=== PATIENT | female | born 1970 | race Caucasian/White ===

== ENCOUNTER → 2017-08-13 11:04 | Outpatient (CLI) | payer OTHER, SELFPAY ==
--- NOTE | 2017-08-13 | VUL_PTH ---
PATIENT: DANY PETERSON LOC: [facility] U#:[id number] AGE/SX: 54/F ROOM: RE08/13/[address]: Dr. Martha Finch MD : 1970 BED: DIS: SPEC #: [id number] RECD: 08/13/17 13:17 STATUS: KARLI IVONNE #: [id number] ANNA MARIE: 08/13/17 00:[address]: Martha Finch DEPT: SURGICAL PATHOLOGY RECD BY: Rocky Baumann ENTERED: 08/15/17 13:17 SP TYPE: VULVA BX OTHR DR: No Primary Care Phys Tissues: Vulva, NOS Procedures: Surgery Specimen Level IV HEADER OPERATION: Right labia biopsy PRE-OP DIAGNOSIS: TISSUE SUBMITTED: Labia MICROSCOPIC DIAGNOSIS Right labia, biopsy: Consistent with focal HPV change. AM:dru 08/18/17 COMMENT Results from immunohistochemistry ([id number]) for surrogate HPV marker (p16) will be reported separately. Case has been reviewed in consultation with Dr. Hernandez who concurs with the above diagnosis. IDC:SJ MICROSCOPIC DESCRIPTION Slides are reviewed. GROSS DESCRIPTION Received is one container labeled with the patient's name and not further designated. The specimen consists of one irregular fragment of light bunch soft tissue that measures 0.2 x 0.2 x 0.1 cm. The specimen is totally submitted in one cassette. / AM:dru 08/14/17 TC:5 CPT: 28559
--- NOTE | 2017-08-13 | IMM_PTH ---
PATIENT: DANY PETERSON LOC: [facility] U#:[id number] AGE/SX: 54/F ROOM: RE08/13/[address]: Dr. Martha Finch MD : 1970 BED: DIS: SPEC #: [id number] RECD: 08/18/17 09:46 STATUS: KARLI REQ #: [id number] ANNA MARIE: 08/13/17 00:[address]: Martha Finch DEPT: IMMUNOHISTOCHEMISTRY RECD BY: Bhakti Enriquez ENTERED: 08/18/17 09:47 SP TYPE: IMMUNO OTHR DR: No Primary Care Phys Tissues: Labium, NOS Procedures: p16 (initial) KI-67 (add) PHYSICIAN & INSTITUTION [place] [id number] SPECIMEN INFORMATION: Tissue Source: Labia Clinical Info: Specimen Number: [id number] CPT code: 10940, 12425 METHODOLOGY: Deparaffinized sections of prefer/formalin-fixed tissue or PAP/DQ stained slides are incubated with monoclonal/polyclonal antibodies/oligonucleotide probes. Localization is made via biotin free immunoperoxidase method. Appropriate controls are performed and reacted as expected. Results on target cell population are indicated in the following table: RESULTS: ANTIBODY / CLONE RESULT P16 (E6H4) positive, rare Ki-67 (30-9) positive, low These tests were developed and their performance characteristics determined by [facility]. They may not have been cleared or approved by the U.S. Food and Drug Administration. The FDA has determined that such clearance or approval is not necessary. INTERPRETATION: Labia biopsy: Focal HPV change suspected. AM:dru 08/18/17
== END ==
LOC: LABSPEC 08-15 11:04
PROVIDERS: Visit Provider Obstetrics & Gynecology
DX: N90.89 Other specified noninflammatory disorders of vulva and perineum (principal)
CPT/HCPCS: 88305; 88341; 88342

== ENCOUNTER 2017-09-25 06:40 | Day surgery (SDC) | payer OTHER, SELFPAY ==
[2017-09-25] VITALS (8 sets, daily range): BP systolic 102–127; BP diastolic 60–76; PULSE 73–98; RESP 16–18; TEMP 36.1–36.3; O2SAT 96–99; BMI 27.8
--- NOTE | 2017-09-25 06:02 | HP.PCM_ITS ---
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: No Is patient in pain?: Yes Allergies coconut oil Allergy (Verified 08/13/17 10:01) Rash venom-honey bee Allergy (Verified 08/13/17 10:01) Unknown Medications amoxicillin 875 mg-potassium clavulanate 125 mg tablet 1 tab PO BID #28 tab 01/14 [Rx Confirmed 08/13/17] ascorbic acid (vitamin C) 500 mg capsule mg PO 08/06/17 [History Confirmed 08/13] bupropion HCl 75 mg tablet 75 mg PO TID 08/06/17 [History Confirmed 08/13/17] Is last menstrual period known: No Post menopausal: No Patient : No : No PFSH Medical History Asthma (Acute) Diabetes (Acute) Diarrhea (Acute) Difficulty balancing (Acute) Fatigue (Acute) Fever (Acute) Lupus (Acute) Migraines (Acute) SOB (shortness of breath) (Acute) Surgical History H/O: hysterectomy (Acute) History of appendectomy (Acute) History of lumpectomy (Acute) Hx of cholecystectomy (Acute) Hx of tonsillectomy (Acute) Family History Aunt Breast cancer Cancer vulvar cancer Grandmother Cancer vulvar Other Heart disease Social History Smoking Status: Current every day smoker alcohol intake: current details: social substance use type: does not use caffeine: Yes what type of physical activity do you participate in: none seatbelt use: always do you feel safe at home: Yes 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 she has a family history of vulvar cancer and breast cancer and is anxious about this. she has a history of mildly abnormal paps but no severe, and she has had a total hysterectomy and bso in the past. she has had recurrent dysplasia and wants to proceed with therapy due to persistent abnormalities. Pregancy History 4 Elective abortions Hx Para 2 Spontaneous abortions Hx # Term Pregnancies Ectopic pregnancies Hx # Pregnancies Multiple births # of living children Past Pregnancies Del. Date Name GA/Weeks Outcome Route Bth Weight Gen Labor Lgth Anesthesia Del Locatn Provider FOB Unknown 1993 Mai Unknown 1995 Gregory ROS Const Constitutional: Reports system reviewed and no additional complaints, except as docu GI GI: Denies abdominal pain, nausea, vomiting or cramping : Denies urinary frequency, vaginal dryness, vaginal discharge, urinary urgency, urinary incontinence, vaginal odor or pelvic pain Exam Const General: cooperative, healthy appearing, comfortable, no acute distress External Female Exam: normal external appearance, normal appearance of the urethra Urethra: normal appearance of the urethra Speculum Exam - Vagina: normal appearance of the vagina, other (normal vaginal length, apex well supprted and healed, intact no granulation) Speculum Exam - Cervix: cervix absent Bimanual Exam- Vagina & Uterus: uterus absent Bimanual Exam- Adnexa, other: adnexae non-tender, pelvic support normal Pelvic Support: normal Other: vaginal cuff normal and intact, good vaginal length, no granulation tissue present dilute acetic acid solution applied to bilateral vulva and serveral areas noted clitoral and on perineal body of acetowhite lesions- biopsy done of right perineal body. Office Procedures Vulva Biopsy Time Out: Consent Signed: Yes Time out checklist: patient, procedure, site marked/identified, positioning of patient, supplies available, allergies confirmed, team agrees on procedure Time out time: 10:46 Procedure Note: Biopsies (vulva): perineal body Plan: Plan: Sign in Communication: Completed Sign out Communication: Completed Gross Lesions: see PE Biopsy: Area was cleansed with betadine and anesthetized with 1mL of 1: lidocaine with epinephrine. 3mm Wing punch used to biopsy region. Hemostasis: Obtained with silver nitrate. Procedure Summary: patient tolerated the procedure well without complication. Assessment & Plan Problems 1. NIKKIE I (vulvar intraepithelial neoplasia I) N90.0 follow recommend vulvar colposcopy january 2018 2. Vulvar lesion N90.89 Plan patient wishes to proceed with ablation therapy versus expectant management. recommend laser ablation due to widespread involvement. discussed risks of bleeding, infection, scarring. 09/25/17 I have seen the patient and made any clinically relevant updates to the h and p. Martha Finch
[2017-09-25 07:12] LABS: Hematocrit 38.1 % (37-47); Hemoglobin 13.4 g/dl (12.0-15.0); Mean Corp Hgb Conc 35.2 g/gl (32-36); Mean Corpuscular Hgb 32.1 pg (27.0-32.0); Mean Corpuscular Volume 91.1 fL (81-99); Mean Platelet Vol. 10.9 fl (6.2-12.0); Platelet Count 253 K/mm3 (150-450); RBC Distribution Width SD 39.2 fl (35.1-43.9); Red Blood Count 4.18 M/mm3 (4.2-5.4); White Blood Count 8.1 K/mm3 (4.4-11.0)
[2017-09-25 07:14] LABS: Scan Indicated on CBC? Y/N NO
[2017-09-25 07:21] LABS: Bedside Glucose 172 mg/dL (70-110)
--- NOTE | 2017-09-25 08:14 | PCM.OPRPT ---
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 Acetic acid was applied to the vulva and abnormal areas were outlined and a map made of the areas that need to be treated. No additional biopsies were necessary. Patient was prepped and draped in normal sterile fashion with moist towels draped around the operative area the laser was set on 5 W continuous and progressive destruction of 1 mm depth for non-hairbearing and 3 mm in depth for hairbearing areas was performed on bilateral labia starting on the clitoris down to the level of the perineal body. The introitus was also treated with the CO2 laser to destroy the lesions. Silvadene cream was applied all to the area and patient was awoken and taken recovery in stable condition. Marcaine was injected prior to the laser ablation. Grafts/Implants Used: none - Complications none - Admit VTE Documentation VTE Present on Admission: No VTE Mechan Device Prophylaxis: SCD's
--- NOTE | 2017-09-25 08:16 | PCM.DC ---
You will use the following diet at home:: Regular Discharge Activity: Return to Normal Activity Return to work on:: 10/08/17 May resume sexual activity in: 6 weeks Ice area for (Minutes): 15 - prn Additional Activity Instructions:: sitz baths PRN use over the counter, apply silvadene cream as needed Call your doctor if your incision/area has: Increased Pain/ Swelling, Foul Smelling Discharge Call your doctor if you observe: Fever of 101 or Higher, Shortness of breath, Dizziness Cleanse incision/area with: Soap & Water Allergies/Adverse Reactions: Allergies coconut oil Allergy (Verified 09/18/17 10:38) Rash venom-honey bee Allergy (Verified 09/18/17 10:38) Unknown Medications to take at Discharge ascorbic acid (vitamin C) 500 mg capsule 500 mg PO DAILY 08/06/17 bupropion HCl 75 mg tablet 75 mg PO TID 08/06/17 Primary Care Physician: Care Physician,No Primary [Primary Care Provider] - Please Follow Up With: Martha Finch MD - [phone] When: 2-3 weeks
[2017-09-25] MEDS: Bupiv/Epi 0.5% Mpf 30 ML Vial (08:51)
[2017-09-25] MEDS: Silver Sulfadiazine 1% Crm 50 gm Bottle 50 APPLIC TOPICAL (09:14)
== END 2017-09-25 11:28 | disposition home or self-care (01) ==
LOC: SDC 06:42 → AC 06:42
PROVIDERS: Anesthesiology; Visit Provider Obstetrics & Gynecology
PROC: (CPT 56515; principal; 2017-09-25 08:10)
DX: N90.0 Mild vulvar dysplasia (principal); F17.200 Nicotine dependence, unspecified, uncomplicated; Z80.49 Family history of malignant neoplasm of other genital organs; Z80.3 Family history of malignant neoplasm of breast; F41.9 Anxiety disorder, unspecified; F32.9 Major depressive disorder, single episode, unspecified; E11.9 Type 2 diabetes mellitus without complications; Z79.899 Other long term (current) drug therapy
CPT/HCPCS: 56515; 36415; 82962; 85027; 86850; 86900; J7120; J2405

== ENCOUNTER 2022-01-18 19:06 | Emergency (ER) | payer MEDICARE, SELFPAY ==
[2022-01-18 19:07] VITALS: BP 147/114; PULSE 114; RESP 16; TEMP 36.4; O2SAT 97; BMI 24.6
--- NOTE | 2022-01-18 19:51 | EKG12_ITS ---
Test Reason : CP Blood Pressure : / mmHG Vent. Rate : 098 BPM Atrial Rate : 098 BPM P-R Int : 144 ms QRS Dur : 074 ms QT Int : 538 ms P-R-T Axes : 020 -10 035 degrees QTc Int : 686 ms Normal sinus rhythm Nonspecific ST abnormality Prolonged QT Abnormal ECG Confirmed by CELI FOFANA, RASHMI ([id number]), story editor CASSANDRA DRUMMOND ([id number]) on 01/22/2022 9:21:56 AM Referred By: BB Confirmed By:RASHMI ALATORRE MD
[2022-01-18 20:05] LABS: Absolute Lymphocyte Count 2.05 X10^3/uL (0.83-4.51); Absolute Neutrophil Count 4.1 X10^3/uL (2.0-7.7); Basophil# 0.07 X10^3/uL; Eosinophil# 0.22 X10^3/uL; Eosinophils% 3.1 % (0-5); Hematocrit 41.7 % (37-47); Hemoglobin 14.3 g/dL (12.0-15.0); Lymphocyte # 2.05 X10^3/ul (0.83-4.51); Lymphocyte % 29.2 % (19-41); Mean Corp Hgb Conc 34.3 g/dL (32-36); Mean Corpuscular Hgb 28.9 pg (27.0-32.0); Mean Corpuscular Volume 84.4 fL (81-99); Monocyte# 0.56 X10^3/uL; NRBC Flagged by Analyzer 0 % (0-5); Neutrophil # 4.08 X10^3/uL (2.7-7.7); Neutrophil % 58.3 % (47-70); Platelet Count 237 K/mm3 (150-450); RBC Distribution Width CV 13.8 % (11.6-14.6); RBC Distribution Width SD 42.2 fl (35.1-43.9); Red Blood Count 4.94 M/mm3 (4.2-5.4)
[2022-01-18] MEDS: Aspirin 81 MG TAB.CHEW 324 MG PO (20:05)
--- NOTE | 2022-01-18 20:12 | RAD_ITS ---
STUDY: X-RAY CHEST REASON FOR EXAM: Female, 51 years old. chest pain TECHNIQUE: AP portable COMPARISON: None. FINDINGS: Mild discoid atelectasis in the left lower lobe. Minor interstitial scarring at the right base There is no demonstrated pleural abnormality. Normal size heart. Normal mediastinum and ruth ann. Normal visualized pulmonary arteries. Normal visualized aortic arch and descending thoracic aorta. Dorsal spine demonstrates degenerative change. Normal visualized ribs, clavicles, and shoulders. There is no demonstrated abnormality of the visualized soft tissue structures of the upper abdomen. RAD/Chest 1 View (Portable) IMPRESSION: Mild discoid atelectasis in left lower lobe. Electronically Signed: Moshe Theodore MD at 20:39 EDT ,
[2022-01-18 20:24] LABS: Anion Gap 6 (5-15); BUN 7 mg/dL (7-18); BUN/Creat Ratio 10.3 RATIO (10-20); Calcium,Total 8.8 mg/dL (8.5-10.1); Chloride 108 mmol/L (98-107); Creatinine, Serum 0.68 mg/dL (0.55-1.02); EST Glomerular Filtration Rate 98 mL/min (>60); Est Glom Filt Rate - Afr Amer 118 mL/min (>60); Estimated Creatinine Clearance 99.84 ml/min; Glucose 235 mg/dL (74-106); Potassium 3.6 mmol/L (3.5-5.1); Sodium Level 137 mmol/L (136-145); Troponin-I HS 13 pg/mL (3.0-54.0)
[2022-01-18] MEDS: 0.9% Normal Saline 1,000 ML 999 ML IV (20:26)
[2022-01-18] MEDS: Ketorolac 15 MG/ML Vial IV (20:26)
[2022-01-18 21:26] LABS: D-Dimer Quantitative (DVT/PE) < 0.27 FEU/ug/m (0.27-0.49)
--- NOTE | 2022-01-18 21:52 | ED.VIS.CHEST ---
HPI History of Present Illness Chief Complaint: Chest Pain Informant: patient Narrative Narrative: Patient is a 51-year-old female with history of anxiety, Diabetes mellitus, asthma, discoid lupus and anxiety presenting with left-sided chest pain. Patient states she is had this pain for about 3 months but is been worse over the past 4 days. She states it is constant dull and aching but then she gets sharp episodes of pain of Benemid at time. It is worse with deep breathing or movement. She also feels that all of her glands are swollen. She denies any associated shortness of breath or dyspnea on exertion. She notes she has an appointment to see a new primary care doctor on February 01 but she did not think she could wait that long given the worsening of her symptoms. Patient denies any swelling of her legs. She states she has been having night sweats for the past 5 days. She notes that she has had a hysterectomy with oophorectomy about 30 years ago so does not think that her symptoms are hormonal. She does feel that she is had about a 10 pound weight loss that is been unintentional since October. Denies any history of DVT or PE. No other complaints at this time. [facility] Medical History (Updated 01/18/22 @ 22:[address] Ivonne Kyle, DO) Asthma Diabetes Diarrhea Difficulty balancing Fatigue Fever Lupus Migraines SOB (shortness of breath) Home Medications aripiprazole 5 mg oral tablet with sensor, strip, and pod 5 mg PO DAILY 01/18/22 [History Last Taken Unknown] bupropion HCl 150 mg tablet,12 hr sustained-release (Wellbutrin SR) 150 mg PO DAILY 01/18/22 [History Last Taken Unknown] insulin aspar prot-insulin aspart 100 unit/mL (70-30) subcutaneous pen (Novolog Mix 70-30FlexPen U-100) 15 unit subcut TID 01/18/22 [History Last Taken Unknown] lamotrigine 200 mg tablet (Lamictal) 200 mg PO DAILY 01/18/22 [History Last Taken Unknown] pregabalin 50 mg capsule (Lyrica) 50 mg PO TID 01/18/22 [History Last Taken Unknown] quetiapine 50 mg tablet (Seroquel) 50 mg PO QHS 01/18/22 [History Last Taken Unknown] trazodone 100 mg tablet 200 mg PO DAILY 01/18/22 [History Last Taken Unknown] Allergy/AdvReac Type Severity Reaction Status Date / Time coconut oil Allergy Rash Verified 01/18/22 19:10 venom-honey bee Allergy Unknown Verified 01/18/22 19:10 Family History Aunt Breast cancer Cancer vulvar cancer Grandmother Cancer vulvar Other Heart disease Surgical History H/O: hysterectomy History of appendectomy History of lumpectomy Hx of cholecystectomy Hx of tonsillectomy Social History Smoking Status: Current every day smoker tobacco type: cigarettes alcohol intake: current details: social substance use type: does not use caffeine: Yes what type of physical activity do you participate in: none seatbelt use: always do you feel safe at home: Yes 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 [employer] ED Constitutional Constitutional ED: Reports chills and sweats; Denies fever(s) Eyes Eyes: Denies blurry vision ENT ENT ED: Denies rhinorrhea or sore throat Cardiovascular Cardiovascular: Reports as per HPI and chest pain; Denies palpitations Respiratory/Chest Respiratory/Chest: Denies cough, dyspnea or dyspnea on exertion Gastrointestinal Gastrointestinal: Denies abdominal pain, nausea or vomiting Genitourinary Genitourinary ED: Denies dysuria Musculoskeletal Musculoskeletal: Denies arthralgias or myalgias Integumentary Denies rash Neurologic Neurologic: Denies headache(s) or weakness Psychiatric Psychiatric: Reports anxiety EXAM Physical Exam Const Vital Signs: 01/18/22 19:07 01/18/22 19:58 Temperature 97.5 F L Temperature Source Temporal Pulse Rate 114 H Respiratory Rate 16 Blood Pressure 147/114 H Blood Pressure Mean 125 Pulse Ox 97 Oxygen Delivery Method Room Air Room Air Positive well nourished and well developed General Appearance ED: well developed and NAD HEENT Reports dry mucous membranes normocephalic and atraumatic Mouth ED: Yes dry mucous membranes Mouth: dry mucous membranes Eyes PERRL and EOMs intact bilaterally Neck no lymphadenopathy and supple Chest Wall inspection of chest normal Chest Narrative: Left-sided chest wall tenderness around approximately rib 7-9 most pronounced in the mid axillary line Resp normal respiratory effort and clear to auscultation bilaterally Effort and Inspection: Negative for respiratory distress Cardio regular rhythm Rate: tachycardic Peripheral Pulses: pulses 2+ throughout GI normal to inspection, nondistended, normoactive bowel sounds and non-tender Back/Spine no CVA tenderness Back/Spine Narrative: Left thoracic paraspinal tenderness to palpation Extremity normal to inspection General Extremety ED: Negative for edema or pulses abnormal General Extremity: Negative for edema or pulses abnormal Neuro oriented x3 Motor Exam: strength 5/5 throughout; Negative for general weakness Psych mental status grossly normal Mood & Affect: anxious and tearful Skin no rashes or lesions noted and no wounds Heart Score History: Slightly/Non-Suspicious ECG: Normal Age: >45 - <65 years Risk Factors: 1 or 2 Risk Factors Troponin: </= Normal Limit Score: 2 MDM MDM MDM Narrative Medical decision making narrative: Patient evaluated for worsening left-sided rib pain. Patient appears anxious and is tachycardic but is in no acute distress. Pain is highly reproducible with palpation. I do not see any overlying rash consistent with shingles. Patient is given IV Toradol and IV fluids in the emergency room with improvement of her symptoms. CBC is normal. D-dimer is negative. Her only risk factor for PE really is her tachycardia and I do not think a CT is indicated. High since her troponin is 13. Given her pain is been going on for 3 months I feel like this rules out ACS. EKG does not show any acute ischemic changes. BMP is unremarkable. Chest x-ray Interpreted by myself as well as radiology does not show any acute process. While the cause of her pain is not clear I feel that is more muscle skeletal nature. I think that she is stable for outpatient follow-up and I do not think there is any acute emergent process that requires further admission in the hospital. Given that is been going on for 3 months I do not think opioid medications without acute verifiable cause of the pain is indicated at this time. Lab Data Attestation: I reviewed the patient's lab results. Labs: Laboratory Results - last 24 hr 01/18/22 01/18/22 01/18/22 19:49 19:49 19:49 WBC 7.0 RBC 4.94 Hgb 14.3 Hct 41.7 MCV 84.4 MCH 28.9 MCHC 34.3 RDW Std Deviation 42.2 RDW Coeff of Marc 13.8 Plt Count 237 MPV 11.0 Immature Gran % (Auto) 0.400 Neut % (Auto) 58.3 Lymph % (Auto) 29.2 [place] % (Auto) 8.0 Eos % (Auto) 3.1 Baso % (Auto) 1.0 Absolute Neuts (auto) 4.1 Absolute Lymphs (auto) 2.05 Nucleated RBC % 0 D-Dimer Quant (PE/DVT) < 0.27 L Sodium 137 Potassium 3.6 Chloride 108 H Carbon Dioxide 23.0 Anion Gap 6 BUN 7 Creatinine 0.68 Estim Creat Clear Calc 99.84 Est GFR (MDRD) Af Amer 118 Est GFR (MDRD) Non-Af 98 BUN/Creatinine Ratio 10.3 Glucose 235 H Calcium 8.8 Troponin I High Sens 13 Radiography Chest X-Ray - ED: 1 View, Read by ED Physician, Read by Radiologist and No Acute Disease Diagnostic Testing: Clinical Impression(s) from Imaging Studies Chest X-Ray 01/18/22 20:12 IMPRESSION: Mild discoid atelectasis in left lower lobe. Electronically Signed: Moshe Theodore MD at 20:39 EDT , Rhythm Strip Rhythm Strip: Sinus Rhythm Rate: 98 Ectopy: None EKG Initial EKG: Attestation: I personally reviewed and interpreted this EKG as follows: Interpretation: Sinus Rhythm Comments: Normal sinus rhythm at a rate of 98 Left axis deviation Normal MN and QRS Normal QTC by my interpretation Normal ST segments Discharge Plan Triage Chief Complaint: Chest Pain ED Provider: Ivonne Kyle Dx/Rx/DC Orders Clinical Impression: Chest wall pain Instructions: ED Chest Pain, Uncertain Cause Prescriptions: No Action bupropion HCl [Wellbutrin SR] 150 mg Tablet Sustained-Release 12 Hr 150 mg PO DAILY lamotrigine [Lamictal] 200 mg Tablet 200 mg PO DAILY trazodone 100 mg Tablet 200 mg PO DAILY pregabalin [Lyrica] 50 mg Capsule 50 mg PO TID quetiapine [Seroquel] 50 mg Tablet 50 mg PO QHS aripiprazole 5 mg Tablet With Sensor, Strip, Pod 5 mg PO DAILY Rx Instructions: use patch with sensor applied weekly (or more frequently, as directed) insulin asp prt-insulin aspart [Novolog Mix 70-30FlexPen U-100] 100 unit/mL (70-30) Insulin Pen 15 unit SUBCUT TID Primary Care Provider: Eusebia Davis GRILL ATTENDANT Referrals: Eusebia Davis GRILL ATTENDANT, GRILL ATTENDANT-C [Primary Care Provider] - Disposition Disposition: Home, Self Care
== END 2022-01-18 22:36 | disposition home or self-care (01) ==
PROVIDERS: Emergency Provider Emergency Medicine; PCP Nurse Practitioner; Visit Provider Emergency Medicine
DX: R07.89 Other chest pain (principal); E11.9 Type 2 diabetes mellitus without complications; Z79.4 Long term (current) use of insulin; F41.9 Anxiety disorder, unspecified; F17.210 Nicotine dependence, cigarettes, uncomplicated; Z79.899 Other long term (current) drug therapy
CPT/HCPCS: 71045; 80048; 84484; 85025; 85379; 93005; 96361; 96374; 99283; J7030

== ENCOUNTER 2023-03-05 21:47 | Inpatient (IN) | payer MEDICARE, SELFPAY ==
[2023-03-05] VITALS (11 sets, daily range): BP systolic 130–162; BP diastolic 79–90; PULSE 98–105; RESP 16–24; TEMP 36.4–37.5; O2SAT 24–99; BMI 26.7; BMI 26.8
--- NOTE | 2023-03-05 21:50 | CT_ITS ---
INDICATION: Neuro deficit, acute, stroke suspected EXAMINATION: CT BRAIN - CT Head Stroke Protocol W/O Contrast Injection TECHNIQUE: Multiple axial images were obtained of the head without intravenous contrast. A radiation dose optimization technique was used for this scan. IV Contrast dosage and agent: None. COMPARISON: No relevant prior comparison study available FINDINGS: BRAIN PARENCHYMA: No intra- or extra-axial hemorrhage. No evidence of acute infarct. No intracranial mass or mass effect. There is preservation of the duron/white matter interface. Posterior fossa structures are unremarkable. CSF SPACES: Appropriate for age. No hydrocephalus. Basal cisterns are patent. CALVARIUM, SKULL BASE, PARANASAL SINUSES AND MASTOID AIR CELLS: Clear. No discrete lytic or blastic abnormalities. ORBITS: Both globes, extraocular muscles, optic nerves and retrobulbar fat appear unremarkable. ASPECTS Score for Acute Strokes: 10 CT/STROKE Brain/Head without Cont IMPRESSION: Negative Brain CT without contrast. N.B. : The above Results were Read Back by Bandar Courtney MD to Edy Baldwin DO, and understanding confirmed on 03/05/2023 22:08:48 (ET). Electronically Signed: Bandar Courtney MD at 22:09 EDT ,
--- NOTE | 2023-03-05 21:50 | EKG12_ITS ---
Test Reason : STROKE Blood Pressure : / mmHG Vent. Rate : 099 BPM Atrial Rate : 099 BPM P-R Int : 152 ms QRS Dur : 080 ms QT Int : 358 ms P-R-T Axes : 028 -20 029 degrees QTc Int : 459 ms Normal sinus rhythm Inferior infarct , age undetermined Abnormal ECG Confirmed by CELI FOFANA, RASHMI ([id number]), health editor CEZAR MCCOY ([id number]) on 03/07/2023 1:54:11 PM Referred By: Confirmed By:RASHMI ALATORRE MD
--- NOTE | 2023-03-05 21:50 | CT_ITS ---
We are attempting to reach an attending provider to discuss findings. An addendum with communication details will be sent when the communication is complete. STUDY: CTA HEAD AND NECK WITH CONTRAST REASON FOR EXAM: Female, 52 years old. Neuro deficit, acute, stroke suspected RADIATION DOSAGE (If Supplied By Facility): CTDIvol = ( 15.57 ) mGy, DLP = ( 752.79 ) mGycm TECHNIQUE: CT angiography was performed with a multi-detector CT scanner. Data acquisition was obtained from the skull base through the vertex following intravenous administration of IV 100mL Isovue-370. MIP images were reconstructed from the axial data set. Post-processing of the angiographic images was performed, with multiplanar reformation and 3D reconstruction. Individualized dose optimization techniques were used for this CT. COMPARISON: No relevant priors. FINDINGS: Normal bilateral petrous carotid arteries. Normal right cavernous carotid artery with a normal supraclinoid bifurcation. Normal left cavernous carotid artery with a normal supraclinoid bifurcation. Normal right A1 segments of the anterior cerebral artery. Normal left A1 segments of the anterior cerebral artery. Normal intact anterior communicating artery (ACOM). Normal bilateral A2 segments of the anterior cerebral arteries. Normal right M1 and M2 segments of the middle cerebral arteries, with a normal M1 bifurcation. Normal left M1 and M2 segments of the middle cerebral arteries, with a normal M1 bifurcation. Normal right posterior communicating artery (PCOM). Normal left posterior communicating artery (PCOM). Normal bilateral vertebral arteries. Normal basilar artery with a normal basilar bifurcation. The visualized bilateral superior cerebellar (SCA) arteries are normal. Normal bilateral P1, P2 and visualized P3 segments of the posterior cerebral arteries. There is no demonstrated aneurysm of the [place]. There is no demonstrated abnormality of the visualized brain. AORTIC ARCH: Normal visualized aortic arch. Normal origins of the brachiocephalic, left common carotid, and left subclavian arteries. RIGHT CAROTID ARTERIES: Normal right common carotid artery (CCA). Normal right common carotid bulb. Normal origin of the right internal carotid (ICA) artery without a hemodynamically significant stenosis. Normal visualized cervical portion of the right internal carotid artery. Normal origin of the right external carotid artery (ECA). LEFT CAROTID ARTERIES: Normal left common carotid artery (CCA). Normal left common carotid bulb. Normal origin of the left internal carotid (ICA) artery without a hemodynamically significant stenosis. Normal visualized cervical portion of the left internal carotid artery. Normal origin of the left external carotid artery (ECA). VERTEBRAL ARTERIES: Normal bilateral vertebral arteries. CT/STROKE CTA Head AND Neck W/Con IMPRESSION: Normal CTA Head and neck with contrast. Electronically Signed: Bandar Courtney MD at 22:26 EDT ,
--- NOTE | 2023-03-05 21:50 | ED.RN ---
phone call to [facility]
--- NOTE | 2023-03-05 21:53 | ED.VIS.STROK ---
HPI History of Present Illness Chief Complaint: Stroke Alert Informant: patient Onset/Context/Timing Onset: Today Context: Sudden Onset Timing: Continuous Quality and Location: Positive for Right Arm Parasthesia, Right Leg Parasthesia, Right Arm Weakness and Right Leg Weakness Onset: 2044 Worsened by: Nothing Relieved by: Nothing Associated Symptoms Associated Symptoms: Negative for Headache, Nausea, Vomiting or Chest Pain Narrative Narrative: Patient presents with stroke symptoms that began approximately 1 hour prior to arrival. Patient admits to some tingling and weakness in her right arm and right leg. Patient admits to some decrease in the right side of her vision. Patient denies any difficulty swallowing or difficulty with her speech. PFSH PFSH Medical History Anxiety and depression Asthma IDDM (insulin dependent diabetes mellitus) Lupus Migraines Tobacco use Home Medications insulin aspar prot-insulin aspart 100 unit/mL (70-30) subcutaneous pen (Novolog Mix 70-30FlexPen U-100) 20 unit subcut TID 01/18/22 [History Last Taken Unknown] lamotrigine 200 mg tablet (Lamictal) 400 mg PO DAILY 01/18/22 [History Last Taken Unknown] pregabalin 50 mg capsule (Lyrica) 50 mg PO TID 01/18/22 [History Last Taken Unknown] quetiapine 50 mg tablet (Seroquel) 50 mg PO QHS 01/18/22 [History Last Taken Unknown] amitriptyline 25 mg tablet 25 - 50 mg PO QHS 03/05/23 [History Last Taken Unknown] prazosin 1 mg capsule 1 mg PO QHS 03/05/23 [History Last Taken Unknown] propranolol 20 mg tablet 20 mg PO QHS 03/05/23 [History Last Taken Unknown] Allergy/AdvReac Type Severity Reaction Status Date / Time coconut oil Allergy Rash Verified 03/05/23 22:06 venom-honey bee Allergy Unknown Verified 03/05/23 22:06 Family History Aunt Breast cancer Cancer vulvar cancer Grandmother Cancer vulvar Other Heart disease Surgical History H/O: hysterectomy History of appendectomy History of lumpectomy Hx of cholecystectomy Hx of tonsillectomy Social History Smoking Status: Current every day smoker tobacco type: cigarettes alcohol intake: current details: social substance use type: does not use caffeine: Yes what type of physical activity do you participate in: none seatbelt use: always do you feel safe at home: Yes 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 [facility] ROS ROS ED Constitutional Constitutional ED: Denies chills or fever(s) Eyes Eyes: Denies blurry vision or change in vision ENT ENT ED: Denies rhinorrhea or sore throat Cardiovascular Cardiovascular: Denies chest pain or palpitations Respiratory/Chest Respiratory/Chest: Denies cough or dyspnea Gastrointestinal Gastrointestinal: Denies nausea or vomiting Genitourinary Genitourinary ED: Denies dysuria or hematuria Musculoskeletal Musculoskeletal: Denies back pain or neck pain Integumentary Denies abscess or rash Neurologic Neurologic: Reports paresthesias and weakness; Denies headache(s) Allergic/Immunologic Allergic/Immunologic ED: Denies mouth swelling or urticaria EXAM Physical Exam Const Vital Signs: 03/05/23 22:05 03/05/23 22:05 03/05/23 22:06 Temperature 98.2 F Temperature Source Temporal Pulse Rate 101 H Respiratory Rate 18 Blood Pressure 155/81 H Blood Pressure Mean 105 Blood Pressure Source Blood Pressure Position Blood Pressure Location Pulse Ox 99 98 Oxygen Delivery Method Room Air Room Air 03/05/23 22:06 03/05/23 22:13 03/05/23 22:15 Temperature 98.2 F Temperature Source Temporal Pulse Rate 104 H 105 H Respiratory Rate 24 H 22 H Blood Pressure 155/81 H 162/88 H Blood Pressure Mean 105 112 Blood Pressure Source Blood Pressure Position Blood Pressure Location Pulse Ox 95 24 Oxygen Delivery Method Room Air Room Air Room Air 03/05/23 22:30 03/05/23 22:30 03/05/23 22:45 Temperature 99 F Temperature Source Core Pulse Rate 103 H 103 H Respiratory Rate 16 16 Blood Pressure 130/79 H 130/79 H 147/79 H Blood Pressure Mean 96 101 Blood Pressure Source Monitor Blood Pressure Position Supine Blood Pressure Location Right Arm Pulse Ox 95 95 Oxygen Delivery Method Room Air Room Air Positive well nourished and well developed General Appearance ED: well developed and NAD HEENT Reports moist mucous membranes Neck supple and no JVD Resp normal respiratory effort and clear to auscultation bilaterally Cardio Rate: regular rate Rhythm: regular rhythm GI soft to palpation, non-tender and non-distended Extremity normal to inspection General Extremety ED: Negative for deformity, edema or tenderness General Extremity: Negative for deformity or edema Neuro oriented x3 Neuro Narrative: There is some slight weakness in the right arm. Patient's arm started to drift down but she was able to keep it off of the bed. There is also some slight weakness in the right leg. Patient was able to keep the leg off the bed but it started to drift down before the count of 5. There is decreased sensation to light touch in the right lower leg and right upper extremity. [place] Coma Scale: document GCS findings Spontaneous Obeys Commands Oriented 15 Sensorium / Orientation: alert Speech: speech normal Psych mental status grossly normal NIHSS NIHSS Initial: 1a Level of Consciousness: 0 1b LOC Questions (Score 2 if aphasic/stupor): 0 1c LOC Commands (Only score 1st attempt): 0 2 Best Gaze (If aphasic, use reflexive mvmts.): 0 3 Visual: 1 4 Facial Palsy: 0 5 Motor Arm Right (UN = amputation/fusion): 1 5 Motor Arm Left: 0 6 Motor Leg Right: 1 6 Motor Leg Left: 0 8 Sensory (Aphasia/stupor=0 or 1, coma=2): 1 9 Best Language: 0 10 Dysarthria (mute, coma=2, intubated=UN): 1 11 Extinction and Inattention (only scored if +): 0 Total Score: 5 MDM MDM MDM Narrative Medical decision making narrative: Differential diagnosis includes stroke, intracranial bleeding, electrolyte abnormality, dehydration, anemia, seizure with Larry's paralysis, and conversion disorder. CT scan of the brain will be obtained to assess for stroke or intracranial bleeding. CTA of the head and neck will be obtained to assess for large vessel occlusion. EKG will be obtained to assess for cardiac dysrhythmia and cardiac ischemia. Chest x-ray will be obtained to assess for pneumonia and cardiomegaly. CBC will be obtained to assess for anemia and leukocytosis. Basic metabolic profile will be obtained to assess for electrolyte abnormality and renal function. PT with INR and PTT will be obtained to assess for coagulopathy. High-sensitivity troponin will be obtained to assess for cardiac ischemia. Lab Data Attestation: I reviewed the patient's lab results. Lab results narrative: CBC was reviewed and was within normal limits. PT with INR and PTT were reviewed and were within normal limits. Basic metabolic profile was reviewed. Glucose was elevated at 308. CO2 was slightly low at 20. Anion gap was normal. High-sensitivity troponin was reviewed and was normal at 10. Labs: Laboratory Results - last 24 hr 03/05/23 21:57 WBC 8.9 RBC 4.94 Hgb 14.8 Hct 43.4 MCV 87.9 MCH 30.0 MCHC 34.1 RDW Std Deviation 38.7 RDW Coeff of Marc 12.0 Plt Count 232 MPV 11.0 Immature Gran % (Auto) 0.200 Neut % (Auto) 54.1 Lymph % (Auto) 30.0 Tucker % (Auto) 8.9 Eos % (Auto) 5.7 H Baso % (Auto) 1.1 H Absolute Neuts (auto) 4.8 Absolute Lymphs (auto) 2.67 Nucleated RBC % 0 PT 12.4 INR 0.9 APTT 24.8 Sodium 136 Potassium 3.5 Chloride 106 Carbon Dioxide 20.0 L Anion Gap 10 BUN 7 Creatinine 0.94 Estim Creat Clear Calc 71.42 Est GFR (MDRD) Af Amer 81 Est GFR (MDRD) Non-Af 67 BUN/Creatinine Ratio 7.5 L Glucose 308 H Calcium 8.7 Troponin I High Sens 10 Radiography Chest X-Ray - ED: 1 View, Read by ED Physician, Read by Radiologist and No Acute Disease Diagnostic Testing: Clinical Impression(s) from Imaging Studies Brain CT 03/05/23 21:50 IMPRESSION: Negative Brain CT without contrast. N.B. : The above Results were Read Back by Bandar Courtney MD to Edy Baldwin DO, and understanding confirmed on 03/05/2023 22:08:48 (ET). Electronically Signed: Bandar Courtney MD at 22:09 EDT , ADDENDUM: 03/05/232215 IMPRESSION: Negative Brain CT without contrast. N.B. : The above Results were Read Back by Bandar Courtney MD to Edy Baldwin DO, and understanding confirmed on 03/05/2023 22:08:48 (ET). Electronically Signed: Bandar Courtney MD at 22:09 EDT , Head/Neck CTA 03/05/23 21:50 IMPRESSION: Normal CTA Head and neck with contrast. Electronically Signed: Bandar Courtney MD at 22:26 EDT , ADDENDUM: 03/05/232236 IMPRESSION: Normal CTA Head and neck with contrast. N.B. : The above Results were Read Back by Bandar Courtney MD to Edy Baldwin DO, and understanding confirmed on 03/05/2023 22:31:02 (ET). Electronically Signed: Bandar Courtney MD at 22:26 EDT , Chest X-Ray 03/05/23 22:38 IMPRESSION: Stable lung markings no visualized acute focal infiltrate. Electronically Signed: Eneida Magana MD at 22:53 EDT , CT scan of the brain was obtained. There is no acute intracranial abnormality. This was interpreted by the radiologist and was also independently reviewed by myself. CTA of the head and neck was obtained. There is no acute abnormality noted. There is no large vessel occlusion noted. This was interpreted by the radiologist and was also independently reviewed by myself. Portable 1 view chest x-ray was obtained. On my independent interpretation, lung velez are clear. There is normal cardiac silhouette. Bony thorax is normal. There is no acute process noted. Radiologist also interpreted the x-ray and agrees. EKG Initial EKG: Attestation: I personally reviewed and interpreted this EKG as follows: Interpretation: Sinus Rhythm (99) and Non-Specific ST Changes Comments: EKG was obtained. On my independent interpretation, it showed a normal sinus rhythm with a rate of 99. NV interval, QRS interval, and QTc intervals were all normal. [place] was normal. There are nonspecific ST-T wave changes. Prior EKG tracings: available for review Prior: Unchanged (01/18/2022) Management Discussion w/another healthcare provider: Hospitalist and Ladle Watcher (Stroke neurologist, Dr. Felix) Treatment and Re-Evaluation Narrative: Patient was evaluated by stroke neurologist, Dr. Felix. He felt that this could be stroke or a possible seizure with Larry's paralysis. He states that family noted some shaking at the onset of her symptoms. It is unclear whether this was true seizure activity. He recommended administering tenecteplase. Patient was advised of the risks and benefits associated with tenecteplase. Patient was agreeable with this. Tenecteplase was ordered. Case was discussed with the hospitalist. She will admit the patient to her service. Patient and family understood and were agreeable with the plan. All questions were answered. Stroke Documentation Questions Stroke Team Activated: Yes Reviewed Inclusion/Exclusion criteria: Yes Was Patient considered for Endovascular Intervention?: No-CTA negative, determined not to be an endovascular candidate IV Thrombolytic Administered: Yes No contraindications from thrombolytic administration: Yes Risks, Benefits, Alternatives Discussed: Yes Critical Care Time Critical Care Time: Yes Critical care time (excluding procedures): 30-74 minutes (34), Including time spent:, Discussing w/Patient &/or Family/Electronic Typesetting Machine Operator, Discussing w/Consultants, Arranging Admission or Transfer and Performing Direct Patient Care at Bedside Discharge Plan Dx/Rx/DC Orders Clinical Impression: Elevated blood pressure reading, Diabetes, Stroke Disposition Disposition: Acute Care Hospital [facility]
[2023-03-05 22:03] LABS: Absolute Lymphocyte Count 2.67 X10^3/uL (0.83-4.51); Absolute Neutrophil Count 4.8 X10^3/uL (2.0-7.7); Basophil% 1.1 % (0-1); Eosinophil# 0.51 X10^3/uL; Eosinophils% 5.7 % (0-5); Hematocrit 43.4 % (37-47); Hemoglobin 14.8 g/dL (12.0-15.0); Lymphocyte # 2.67 X10^3/ul (0.83-4.51); Mean Corp Hgb Conc 34.1 g/dL (32-36); Mean Corpuscular Volume 87.9 fL (81-99); Monocyte# 0.79 X10^3/uL; Monocyte% 8.9 % (0-10); NRBC Flagged by Analyzer 0 % (0-5); Neutrophil # 4.82 X10^3/uL (2.7-7.7); Neutrophil % 54.1 % (47-70); Platelet Count 232 K/mm3 (150-450); RBC Distribution Width SD 38.7 fl (35.1-43.9); Red Blood Count 4.94 M/mm3 (4.2-5.4); White Blood Count 8.9 K/mm3 (4.4-11.0)
--- NOTE | 2023-03-05 22:05 | CM.ED ---
Social Work Note Referral Source: Stroke Alert Referral Reason: emotional support SW responded to stroke alert and introduced herself and role to patient's . Patient's was agreeable to speak with SW. SW provided emotional support and reviewed [facility] response to stroke alert including teleconference with [facility] neurology. Patient's voiced understanding and reports no current needs. SW remains available if additional needs arise. Aga Burger REGULATORY COORDINATOR, [place]HAI
[2023-03-05] MEDS: 0.9% Saline Lock 10 ML Syringe IV ×2 (22:29→22:31)
[2023-03-05 22:30] LABS: International Normalized Ratio 0.9; Prothrombin Time (Protime)PT. 12.4 SECONDS (11.7-14.9)
[2023-03-05 22:31] LABS: Partial Thromboplast Time 24.8 Seconds (24.1-36.2)
--- NOTE | 2023-03-05 22:38 | RAD_ITS ---
STUDY: X-RAY CHEST REASON FOR EXAM: Female, 52 years old. Neuro deficit, acute, stroke suspected TECHNIQUE: Single AP portable view of the chest. COMPARISON: January 18, 2022 chest x-ray FINDINGS: The lung markings are relatively stable there is bilateral lower lobe atelectasis and/or scarring. There is no demonstrated pleural abnormality. Normal size heart. Normal mediastinum and ruth ann. Normal visualized pulmonary arteries. Normal visualized aortic arch and descending thoracic aorta. Normal visualized thoracic spine. Normal visualized ribs, clavicles, and shoulders. There is no demonstrated abnormality of the visualized soft tissue structures of the upper abdomen. RAD/Chest 1 View IMPRESSION: Stable lung markings no visualized acute focal infiltrate. Electronically Signed: Eneida Magana MD at 22:53 EDT ,
--- NOTE | 2023-03-05 22:51 | PCM.HP.STD ---
HPI - General General Date of Admission: 03/05/23 Date of Service: 03/05/23 Chief Complaint: R sided weakness/paresthesias. HPI Narrative The patient is a 52 y/o F w/ PMHx: Hx Migraines, Lupus, Asthma, Anxiety and Depression, IDDM with chronic neuropathy, Tobacco use who presents to the [facility] ED on 03/05/23 with history of onset right sided paresthesias both upper and lower extremity as well as right-sided weakness in the upper and lower extremity starting at 2045 approximately 1 hour prior to ED arrival as well as right-sided vision mild alteration prompting eventual EMS call with initial ED NIH stroke scale evaluation 5. Given severity of presentation telemetry neurology stroke alert physician Dr. Felix recommended administration of tenecteplase which was performed. Following connect place the patient does feel like she is improving however on examination which was also confirmed and discussed with ED staff she is now reporting decrease sensation to the left side of the face as well as the left leg and is having some mild difficulties with [id number]-[id number] of the left lower extremity otherwise her exam is normalizing and confirmed that all her symptoms were initially on the right side. Work-up in the ED included T98.2, heart rate initially 101 with repeat 105, BP 155/81 with most recent repeat 130/79, respiratory rate 18, 98% room air, CBC with WC 8.9, hemoglobin 14.8, platelet 232 without marked shift, unremarkable coags, BMP and troponin pending upon requested evaluation of patient, CT head with no acute intracranial finding, follow-up CTA head and neck unremarkable with no large vessel occlusion or stenoses, EKG with sinus rhythm with no acute evidence of ischemia unchanged from prior. [facility] Medical History Anxiety and depression Asthma IDDM (insulin dependent diabetes mellitus) Lupus Migraines Tobacco use Home Medications insulin aspar prot-insulin aspart 100 unit/mL (70-30) subcutaneous pen (Novolog Mix 70-30FlexPen U-100) 20 unit subcut TID 01/18/22 [History Last Taken Unknown] lamotrigine 200 mg tablet (Lamictal) 400 mg PO DAILY 01/18/22 [History Last Taken Unknown] pregabalin 50 mg capsule (Lyrica) 50 mg PO TID 01/18/22 [History Last Taken Unknown] quetiapine 50 mg tablet (Seroquel) 50 mg PO QHS 01/18/22 [History Last Taken Unknown] amitriptyline 25 mg tablet 25 - 50 mg PO QHS 03/05/23 [History Last Taken Unknown] prazosin 1 mg capsule 1 mg PO QHS 03/05/23 [History Last Taken Unknown] propranolol 20 mg tablet 20 mg PO QHS 03/05/23 [History Last Taken Unknown] Allergy/AdvReac Type Severity Reaction Status Date / Time coconut oil Allergy Rash Verified 03/05/23 22:06 venom-honey bee Allergy Unknown Verified 03/05/23 22:06 Family History (Updated 03/05/23 @ 23:[address] Karina Moran MD) Aunt Breast cancer Cancer vulvar cancer Grandmother Cancer vulvar Father CVA (cerebral vascular accident) Hypertension Other Heart disease other (Patient does not know her mother or her maternal family history.) Surgical History H/O: hysterectomy History of appendectomy History of lumpectomy Hx of cholecystectomy Hx of tonsillectomy Social History (Updated 03/05/23 @ 23:[address] 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 ROXIE FAUSTIN Narrative Admission Review of Systems: CONSTITUTIONAL: No weight loss, fever, chills, + weakness or fatigue. HEENT: Eyes: No visual loss, blurred vision, double vision or yellow sclerae. Ears, Nose, Throat: No hearing loss, sneezing, congestion, runny nose or sore throat. SKIN: No rash or itching, lesions, wounds. CARDIOVASCULAR: No chest pain, chest pressure or chest discomfort, palpitations, edema, orthopnea, syncopal events. RESPIRATORY: No shortness of breath, cough or sputum, wheezing, hemoptysis. GASTROINTESTINAL: No anorexia, nausea, vomiting or diarrhea, abdominal pain, melena, BRBPR. GENITOURINARY: No dysuria, frequency, urgency or retention. NEUROLOGICAL: + History of chronic migraines with none currently. Sudden onset right-sided weakness and paresthesias. No headache, dizziness, syncope, paralysis, change in bowel or bladder control, seizure. MUSCULOSKELETAL: + muscle, back pain, joint pain or stiffness. HEMATOLOGIC: No anemia, bleeding or bruising. LYMPHATICS: No enlarged nodes. No history of splenectomy. PSYCHIATRIC: + history of depression or anxiety. ENDOCRINOLOGIC: No reports of sweating, cold or heat intolerance. No polyuria or polydipsia. ALLERGIES: + history of asthma. Vital Signs Vital Signs Vital Signs: 03/05/23 22:05 03/05/23 22:05 03/05/23 22:06 Temperature 98.2 F Temperature Source Temporal Pulse Rate 101 H Respiratory Rate 18 Blood Pressure 155/81 H Blood Pressure Mean 105 Pulse Ox 99 98 Oxygen Delivery Method Room Air Room Air 03/05/23 22:06 03/05/23 22:13 03/05/23 22:15 Temperature 98.2 F Temperature Source Temporal Pulse Rate 104 H 105 H Respiratory Rate 24 H 22 H Blood Pressure 155/81 H 162/88 H Blood Pressure Mean 105 112 Pulse Ox 95 24 Oxygen Delivery Method Room Air Room Air Room Air 03/05/23 22:30 03/05/23 22:30 Temperature Temperature Source Pulse Rate 103 H Respiratory Rate 16 Blood Pressure 130/79 H 130/79 H Blood Pressure Mean 96 Pulse Ox 95 Oxygen Delivery Method Room Air Weight Weight: 175 lb 14.862 oz Body Mass Index (BMI) 26.7 Physical Exam Narrative Physical Examination: General: Awake, alert, oriented to person, place and recent events, remains cooperative, seated upright in the ED bed, tearful and anxious. Skin: Normal color, normal turgor, no icterus, no cyanosis. HEENT: AT/NC, EOMI, PERRLA, moderately dry MM, no carotid bruits or JVD noted. Lungs: CTA bilaterally, moderate effort, mild decrease BL bases, no rales, ronchi or wheezing. Heart: Mildly tachycardic with regular rhythm; no gallop, rub audible. Abdomen: Soft, NTTP, ND, mildly hyperactive BS, no HSM. Extremities: No cyanosis, clubbing, or edema. Neurological: Patient awake, alert, oriented as noted, cognitive function appears likely baseline intact; pupils equally reactive to light and accommodation, cranial nerves grossly normal except for patient with subjectively now mild left-sided facial decree sensation as well as left lower extremity mild decrease sensation but arms are normal and equivalent, no specific focal weakness, equivocal Babinski, finger-nose appropriate bilaterally, some difficulty with the left lower extremity [id number] otherwise right normal which again is opposite from her initial presenting symptoms which were on the right side. Psychiatric: Affect appears tearful and anxious with underlying history of depression and anxiety and suspect possibly bipolar disorder. Results Lab / Micro Data 03/05/23 21:57 03/05/23 21:57 Labs: Laboratory Results - last 24 hr 03/05/23 21:57: WBC 8.9, RBC 4.94, Hgb 14.8, Hct 43.4, MCV 87.9, MCH 30.0, MCHC 34.1, RDW Std Deviation 38.7, RDW Coeff of Marc 12.0, Plt Count 232, MPV 11.0, Immature Gran % (Auto) 0.200, Neut % (Auto) 54.1, Lymph % (Auto) 30.0, Emmet % (Auto) 8.9, Eos % (Auto) 5.7 H, Baso % (Auto) 1.1 H, Absolute Neuts (auto) 4.8, Absolute Lymphs (auto) 2.67, Nucleated RBC % 0, PT 12.4, INR 0.9, APTT 24.[address] 03/05/23 21:50 IMPRESSION: Negative Brain CT without contrast. N.B. : The above Results were Read Back by Bandar Courtney MD to Edy Baldwin DO, and understanding confirmed on 03/05/2023 22:08:48 (ET). Electronically Signed: Bandar Courtney MD at 22:09 EDT , ADDENDUM: 03/05/232215 IMPRESSION: Negative Brain CT without contrast. N.B. : The above Results were Read Back by Bandar Courtney MD to Edy Baldwin DO, and understanding confirmed on 03/05/2023 22:08:48 (ET). Electronically Signed: Bandar Courtney MD at 22:09 EDT , Head/Neck CTA 03/05/23 21:50 IMPRESSION: Normal CTA Head and neck with contrast. Electronically Signed: Bandar Courtney MD at 22:26 EDT , ADDENDUM: 03/05/232236 IMPRESSION: Normal CTA Head and neck with contrast. N.B. : The above Results were Read Back by Bandar Courtney MD to Edy Baldwin DO, and understanding confirmed on 03/05/2023 22:31:02 (ET). Electronically Signed: Bandar Courtney MD at 22:26 EDT , Assessment & Plan Assessment/Plan (1) Stroke: PLAN: Plan The patient is a 52 y/o F w/ PMHx: Hx Migraines, Lupus, Asthma, Anxiety and Depression, IDDM with chronic neuropathy, Tobacco use who presents to the [facility] ED on 03/05/23 with history of onset right sided paresthesias both upper and lower extremity as well as right-sided weakness in the upper and lower extremity starting at 2044 approximately 1 hour prior to ED arrival as well as right-sided vision mild alteration prompting eventual EMS call with initial ED NIH stroke scale evaluation 5. #1. Right-sided paresthesias, weakness concerning for Acute CVA status post tenecteplase administration although of note does have history of migraines: Will admit to the ICU given status post tenecteplase administration, will request parts puller involvement as well as repeat teleneurology consultation within 24 hours of tenecteplase administration, will obtain MRI Brain however if this is not able to be performed within 24 hours of tenecteplase will obtain CT of the head to assure no intracranial bleeding and if this is negative then will initiate antiplatelet therapy aspirin administration at that time, will maintain on hypertensive protocol per tenecteplase order set, will initiate on statin therapy w/ AM FLP, fall precautions. Mag, TSH, FLP, HgbA1c requested. Maintain on fall and aspiration precautions. Again as noted in HPI initial evaluation per Hospitalist with symptoms now on the L with L facial/LLE decreased sensation and difficulty only with L heel-abraham of note. #2. Insulin-dependent diabetes mellitus: Clarifying but will continue home insulin regimen, ADA diet, accu checks w/ ISS once allowed given tenecteplase administration, hemoglobin A1c requested as noted per protocol, nutrition consulted per stroke protocol for education and teaching and assessment. #3. Anxiety and depression/suspected bipolar disorder: We will continue patient home Seroquel, Lyrica, Lamictal with level request as well as bupropion and aripiprazole in addition to trazodone however these medications can be heavily sedated thus low threshold to hold given presentation to avoid conflicting NIH stroke scale assessments. #4. Chronic asthma: Not on any chronic regimen per current list, in the interim we will maintain on PRN albuterol, HOB, IS parameters. #5. Lupus: Per current medication list not on any chronic regimen, encourage continued outpatient follow-up with rheumatology. #6. Tobacco Abuse: Encouraged cessation, inpatient consultation per RT, NR if desired. #7. DVT prophylaxis: SCDs given tenecteplase usage, may add chemoprophylaxis once out of the 24-hour window. #8. CODE STATUS: Patient who is present would be her decision maker she notes and she does have a living will in place. Full code. Charges/Coding Visit Charges Inpatient E&M: 23983 Init Hosp L3
[2023-03-05 22:52] LABS: Anion Gap 10 (5-15); BUN 7 mg/dL (7-18); BUN/Creat Ratio 7.5 RATIO (10-20); Calcium,Total 8.7 mg/dL (8.5-10.1); Chloride 106 mmol/L (98-107); Creatinine, Serum 0.94 mg/dL (0.55-1.02); EST Glomerular Filtration Rate 67 mL/min (>60); Est Glom Filt Rate - Afr Amer 81 mL/min (>60); Estimated Creatinine Clearance 71.42 ml/min; Glucose 308 mg/dL (74-106); Potassium 3.5 mmol/L (3.5-5.1); Sodium Level 136 mmol/L (136-145); Troponin-I HS 10 pg/mL (3.0-54.0)
[2023-03-05] MEDS: 0.9% Normal Saline 1,000 ML 100 ML IV ×2 (22:54→23:45)
[2023-03-05 23:28] LABS: Magnesium 1.9 mg/dL (1.6-2.6)
--- NOTE | 2023-03-05 23:32 | ECHOCS_ITS ---
Reason For Study: CVA Procedure This was a 2D Doppler, Color Flow transthoracic echocardiogram. Contrast injection was performed. Exam performed portable in ICU/CCU. Left Ventricle Normal left ventricle. The estimated ejection fraction is 55-60 %. Right Ventricle Normal right ventricle. Normal systolic function. Atria Normal left atrium. Normal right atrium. Bubble contrast study is negative for PFO/ASD. Mitral Valve The mitral valve is structurally normal. No prolapse or stenosis seen. No mitral valve insufficiency. Tricuspid Valve Normal tricuspid valve. Mild tricuspid valve insufficiency. Aortic Valve Normal aortic valve. Pulmonic Valve The pulmonic valve is not well visualized. Great Vessels Normal aortic root. Pericardium/Pleural No pericardial effusion. Medication Diluted definity 1.5ml given slow IV push to enhance endocardial definition. Performed a rapid injection of agitated mix of 9 cc saline and 1cc air to assess for atrial septal defect. MMode/2D Measurements & Calculations LVIDd: 5.2 cm IVSd: 0.78 cm Ao root diam: 3.6 cm LVIDs: 3.8 cm LVPWd: 0.87 cm LA dimension: 3.7 cm RVDd: 3.8 cm FS: 26.6 % LAV(MOD-bp): 50.1 ml LVAd ap4: 31.1 cm2 SV(MOD-sp4): 67.2 ml LAV(MOD-bp) Indexed: 25.9 ml/m2 LVLd ap4: 7.6 cm LAV(MOD-sp2): 49.3 ml EDV(MOD-sp4): 103.9 ml LAV(MOD-sp4): 48.6 ml EDV(sp4-el): 108.5 ml LVAs ap4: 16.2 cm2 LVLs ap4: 6.3 cm ESV(MOD-sp4): 36.7 ml ESV(sp4-el): 35.4 ml EF(MOD-sp4): 64.7 % EF(sp4-el): 67.3 % SV(sp4-el): 73.0 ml LA A4 area: 18.8 cm2 RA A4 area: 11.6 cm2 TAPSE: 1.7 cm Time Measurements MV dec time: 0.19 sec Doppler Measurements & Calculations MV E max shahzad: 71.0 cm/sec Lat Peak E' Shahzad: 11.4 cm/sec Med Peak E' Shahzad: 7.8 cm/sec MV A max shahzad: 67.7 cm/sec E/E' lat: 6.2 E/E' med: 9.1 MV E/A: 1.0 MV V2 max: 88.6 cm/sec MV P1/2t max shahzad: 88.6 cm/sec Ao V2 max: 110.4 cm/sec MV max P.1 mmHg MV P1/2t: 71.3 msec Ao max P.9 mmHg MV V2 mean: 50.7 cm/sec Ao V2 mean: 80.2 cm/sec MV mean P.2 mmHg MV dec slope: 364.0 cm/sec2 Ao mean P.9 mmHg MV V2 VTI: 26.9 cm MVA(P1/2t): 3.1 cm2 Ao V2 VTI: 26.7 cm AV (velocity ratio): 0.85 LV V1 max: 88.2 cm/sec PA V2 max: 63.3 cm/sec TR max shahzad: 235.7 cm/sec LV V1 max P.1 mmHg TR max P.2 mmHg LV V1 mean P.6 mmHg LV V1 mean: 59.3 cm/sec LV V1 VTI: 22.8 cm ECHO/Echo Complete W/ Contrast Interpretation Summary The estimated ejection fraction is 55-60 %. With systolic function Mild TR No prior echocardiogram to compare Ordering Physician: Karina Moran Performed By: Ren Aj RCS
[2023-03-06] VITALS (34 sets, daily range): BP systolic 101–151; BP diastolic 56–97; PULSE 71–102; RESP 12–23; TEMP 36.1–36.4; O2SAT 90–99; BMI 26.7; BMI 26.8
[2023-03-06 00:09] LABS: Amphetamine Urine VISTA NEGATIVE (<1000 ng/mL); Barbiturate Urine VISTA NEGATIVE (< 200 ng/mL); Benzodiazepine Urine VISTA NEGATIVE (< 200 ng/mL); Cocaine Urine VISTA NEGATIVE (< 300 ng/mL); Ecstacy Urine VISTA NEGATIVE (< 500 ng/mL); Methadone Urine VISTA NEGATIVE (< 300 ng/mL); PCP Urine VISTA NEGATIVE (< 25 ng/mL); THC Urine VISTA POSITIVE (< 50 ng/mL); Vista UDS pH Range 5
[2023-03-06] MEDS: Acetaminophen 325 MG Tablet 650 MG PO ×4 (00:59→17:09)
[2023-03-06 04:51] LABS: Absolute Lymphocyte Count 2.87 X10^3/uL (0.83-4.51); Absolute Neutrophil Count 3.7 X10^3/uL (2.0-7.7); Basophil# 0.09 X10^3/uL; Basophil% 1.2 % (0-1); Eosinophil# 0.47 X10^3/uL; Hematocrit 40.5 % (37-47); Hemoglobin 13.6 g/dL (12.0-15.0); Lymphocyte # 2.87 X10^3/ul (0.83-4.51); Lymphocyte % 36.8 % (19-41); Mean Corp Hgb Conc 33.6 g/dL (32-36); Mean Corpuscular Hgb 30.4 pg (27.0-32.0); Mean Corpuscular Volume 90.4 fL (81-99); Mean Platelet Vol. 11.3 fl (6.2-12.0); Monocyte# 0.65 X10^3/uL; Monocyte% 8.3 % (0-10); NRBC Flagged by Analyzer 0 % (0-5); Neutrophil # 3.69 X10^3/uL (2.7-7.7); Neutrophil % 47.4 % (47-70); Platelet Count 218 K/mm3 (150-450); RBC Distribution Width CV 12.2 % (11.6-14.6); RBC Distribution Width SD 40.2 fl (35.1-43.9); Red Blood Count 4.48 M/mm3 (4.2-5.4); White Blood Count 7.8 K/mm3 (4.4-11.0)
[2023-03-06 05:16] LABS: AST(SGOT) 14 U/L (15-37); Alanine Aminotransfer ALT/SGPT 25 U/L (13-56); Albumin, Serum 3.1 g/dL (3.2-5.0); Alkaline Phosphatase 74 U/L (45-117); Anion Gap 8 (5-15); BUN 9 mg/dL (7-18); BUN/Creat Ratio 11.3 RATIO (10-20); Calcium,Total 8.1 mg/dL (8.5-10.1); Chloride 108 mmol/L (98-107); Cholesterol 170 mg/dL (200); EST Glomerular Filtration Rate 80 mL/min (>60); Est Glom Filt Rate - Afr Amer 97 mL/min (>60); Estimated Creatinine Clearance 83.92 ml/min; Globulin 3.2 g/dL (2.2-4.2); Glucose 283 mg/dL (74-106); High Density Lipoprotein 49 mg/dL; Potassium 3.7 mmol/L (3.5-5.1); Protein, Total 6.3 g/dL (6.4-8.2); Sodium Level 140 mmol/L (136-145); Thyroid Stim Hormone (TSH) 1.41 uIU/mL (0.358-3.74); Triglycerides 209 mg/dL; Very Low Density Lipoprotein 42 mg/dL (5-40)
[2023-03-06] MEDS: Pregabalin 50 MG Capsule PO ×3 (05:21→21:18)
[2023-03-06 08:13] LABS: Hemoglobin A1c 10.4 % (3.8-5.6)
--- NOTE | 2023-03-06 09:24 | CON.PCM.CC_ITS ---
Assessment & Plan Assessment/Plan (1) Stroke: PLAN: Plan RECOMMENDATIONS: 1. Continue ICU monitoring per tenecteplase protocol. 2. Follow-up head imaging tonight. 3. PT/OT evaluations tomorrow. 4. Speech therapy evaluation with dietary advancement as recommended. 5. Obtain echocardiogram. 6. Start aspirin after 24 hours. 7. Tobacco cessation is advised. IMPRESSIONS: 1. CVA status post tenecteplase The patient presented with symptoms concerning for CVA and was administered tenecteplase in the emergency department. Initial CT imaging of the head was unremarkable. There was no evidence of large vessel occlusion. The patient was already seen in consultation by neurology. Plan to continue current supportive measures per tenecteplase protocol. Plan to obtain repeat head imaging tonight. Echocardiogram will be completed. PT/OT evaluations tomorrow. 2. History of lupus/asthma/anxiety/depression/diabetes mellitus/tobacco dependency Complicates care, management, recovery and prognosis. Continue home medications as indicated. This note was generated with [employer] dictation software. It may contain incorrect words, spelling, and punctuation that were not noted in checking the note before signing. HPI Consult Data Date of Consult: 03/06/23 HPI Narrative Reason for Consultation: CVA status post tenecteplase HPI Narrative: The patient is a 52-year-old female, with a history as outlined below, who presented to the emergency department via EMS on March 05 with right-sided weakness and paresthesias. The patient has a history that includes lupus, asthma, anxiety and tobacco dependency. She has no prior history of any underlying neurologic conditions or seizures. On presentation to the emergency department, the patient was noted to be afebrile and hemodynamically stable. She was maintaining appropriate oxygen saturations on room air. Initial laboratory evaluation revealed no evidence of a leukocytosis. Chemistry profile was unrevealing. Toxicology screen was positive for cannabis. Head CT was unremarkable. CTA head neck was also unremarkable. Following evaluation by tele-neurology, the decision was made to administer tenecteplase. The patient was subsequently admitted to the medical intensive care unit for further management. This morning, the patient is resting comfortably in bed with her at the bedside. She does report diffuse musculoskeletal pain, for which she reported that she utilizes tramadol at home. [facility] Medical History Anxiety and depression Asthma IDDM (insulin dependent diabetes mellitus) Lupus Migraines Tobacco use Home Medications insulin aspar prot-insulin aspart 100 unit/mL (70-30) subcutaneous pen (Novolog Mix 70-30FlexPen U-100) 20 unit subcut TID 01/18/22 [History Last Taken Unknown] lamotrigine 200 mg tablet (Lamictal) 400 mg PO DAILY bipolar 01/18/22 [History Last Taken Unknown] pregabalin 50 mg capsule (Lyrica) 50 mg PO TID 01/18/22 [History Last Taken Unknown] quetiapine 50 mg tablet (Seroquel) 50 mg PO QHS 01/18/22 [History Last Taken Unk nown] amitriptyline 25 mg tablet 25 - 50 mg PO QHS 03/05/23 [History Last Taken Unknown] prazosin 1 mg capsule 1 mg PO QHS 03/05/23 [History Last Taken Unknown] propranolol 20 mg tablet 20 mg PO QHS 03/05/23 [History Last Taken Unknown] lurasidone 40 mg tablet mg bipolar 03/06/23 [History Last Taken 03/04/23 22:00] tramadol 50 mg tablet mg PO Q6H PRN lynphoma,lupus 03/06/23 [History Last Taken 03/05/23 06:00] Allergy/AdvReac Type Severity Reaction Status Date / Time coconut oil Allergy Rash Verified 03/05/23 22:06 venom-honey bee Allergy Unknown Verified 03/05/23 22:06 Family History (Updated 03/05/23 @ 23:[address] Karina Moran MD) Aunt Breast cancer Cancer vulvar cancer Grandmother Cancer vulvar Father CVA (cerebral vascular accident) Hypertension Other Heart disease Family History other Surgical History H/O: hysterectomy History of appendectomy History of lumpectomy Hx of cholecystectomy Hx of tonsillectomy Social History (Updated 03/05/23 @ 23:[address] 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 Physical Exam Const alert and no apparent distress General Appearance: cooperative HEENT normocephalic and head/scalp atraumatic Eyes PERRL, EOMs intact bilaterally and conjunctivae normal Neck supple General: trachea midline Chest inspection of chest normal Resp normal respiratory effort Auscultation: Negative for rales, rhonchi or wheezes Cardio regular rate and regular rhythm GI normal to inspection, nondistended, normoactive bowel sounds Extremity no clubbing, cyanosis or edema Skin no rashes or lesions noted Neuro CN's II-XII intact bilaterally and no focal motor deficits Psych cooperative and affect normal Lab / Micro Data 03/06/23 04:40 03/06/23 04:40 Labs: Laboratory Results - last 24 hr 03/05/23 21:57: WBC 8.9, RBC 4.94, Hgb 14.8, Hct 43.4, MCV 87.9, MCH 30.0, MCHC 34.1, RDW Std Deviation 38.7, RDW Coeff of Marc 12.0, Plt Count 232, MPV 11.0, Immature Gran % (Auto) 0.200, Neut % (Auto) 54.1, Lymph % (Auto) 30.0, Moffat % (Auto) 8.9, Eos % (Auto) 5.7 H, Baso % (Auto) 1.1 H, Absolute Neuts (auto) 4.8, Absolute Lymphs (auto) 2.67, Nucleated RBC % 0, PT 12.4, INR 0.9, APTT 24.8, So dium 136, Potassium 3.5, Chloride 106, Carbon Dioxide 20.0 L, Anion Gap 10, BUN 7, Creatinine 0.94, Estim Creat Clear Calc 71.42, Est GFR (MDRD) Af Amer 81, Est GFR (MDRD) Non-Af 67, BUN/Creatinine Ratio 7.5 L, Glucose 308 H, Calcium 8.7, Magnesium 1.9, Troponin I High Sens 10 03/05/23 22:30: Urine Opiates Screen NEGATIVE, Urine Methadone Screen NEGATIVE, Ur Barbiturates Screen NEGATIVE, Ur Phencyclidine Scrn NEGATIVE, Ur Amphetamines Screen NEGATIVE, MDMA (Ecstasy) Screen NEGATIVE, U Benzodiazepines Scrn NEGATIVE, Urine Cocaine Screen NEGATIVE, U Cannabinoids Screen POSITIVE H, Ur Drug Screen Comment 03/06/23 04:40: WBC 7.8, RBC 4.48, Hgb 13.6, Hct 40.5, MCV 90.4, MCH 30.4, MCHC 33.6, RDW Std Deviation 40.2, RDW Coeff of Marc 12.2, Plt Count 218, MPV 11.3, Immature Gran % (Auto) 0.300, Neut % (Auto) 47.4, Lymph % (Auto) 36.8, Moffat % (Auto) 8.3, Eos % (Auto) 6.0 H, Baso % (Auto) 1.2 H, Absolute Neuts (auto) 3.7, Absolute Lymphs (auto) 2.87, Nucleated RBC % 0, Sodium 140, Potassium 3.7, C hloride 108 H, Carbon Dioxide 24.0, Anion Gap 8, BUN 9, Creatinine 0.80, Estim Creat Clear Calc 83.92, Est GFR (MDRD) Af Amer 97, Est GFR (MDRD) Non-Af 80, BUN/Creatinine Ratio 11.3, Glucose 283 H, Hemoglobin A1c 10.4 H, Calcium 8.1 L, Total Bilirubin 0.20, AST 14 L, ALT 25, Alkaline Phosphatase 74, Total Protein 6.3 L, Albumin 3.1 L, Globulin 3.2, Albumin/Globulin Ratio 1.0, Triglycerides 209 H, Cholesterol 170, LDL Cholesterol 79, VLDL Cholesterol 42 H, HDL Cholesterol 49, TSH 1.[address] 03/05/23 21:50 IMPRESSION: Negative Brain CT without contrast. N.B. : The above Results were Read Back by Bandar Courtney MD to Edy Baldwin DO, and understanding confirmed on 03/05/2023 22:08:48 (ET). Electronically Signed: Bandar Courtney MD at 22:09 EDT , ADDENDUM: 03/05/234 IMPRESSION: Negative Brain CT without contrast. N.B. : The above Results were Read Back by Bandar Courtney MD to Edy Baldwin DO, and understanding confirmed on 03/05/2023 22:08:48 (ET). Electronically Signed: Bandar Courtney MD at 22:09 EDT , Head/Neck CTA 03/05/23 21:50 IMPRESSION: Normal CTA Head and neck with contrast. Electronically Signed: Bandar Courtney MD at 22:26 EDT , ADDENDUM: 03/05/232236 IMPRESSION: Normal CTA Head and neck with contrast. N.B. : The above Results were Read Back by Bandar Courtney MD to Edy Baldwin DO, and understanding confirmed on 03/05/2023 22:31:02 (ET). Electronically Signed: Bandar Courtney MD at 22:26 EDT , Chest X-Ray 03/05/23 22:38 IMPRESSION: Stable lung markings no visualized acute focal infiltrate. Electronically Signed: Eneida Magana MD at 22:53 EDT , Charges/Coding Visit Charges Inpatient E&M: 93624 Init Hosp L3
[2023-03-06] MEDS: Insulin Lispro 100 UNIT/ML INSULN.PEN SC ×3 (11:24→21:19)
[2023-03-06 11:35] LABS: Bedside Glucose 182 mg/dL (74-106)
--- NOTE | 2023-03-06 13:32 | CASEMGMT ---
SW completed a PHQ 9 with patient as she had a Stroke. Patient scored a 7 which indicates mild depression. Patient stated she is Bipolar. Patient is on medication for her Bipolar and she sees a counselor regularly. Patient denies any need for further resources. Jennifer HOLM
[2023-03-06 14:07] LABS: Bedside Glucose 167 mg/dL (74-106)
--- NOTE | 2023-03-06 15:30 | CASEMGMT ---
Addendum entered by Marely Cazares 03/06/23 15:49: Pt states she plans to return to her camper in [place] which is where she stays in the summer. She states this is more accessible to her than her own home. Original Note: DEBORAH LAND Assessment: Face to Face with pt for initial transition planning/care coordination assessment. DEBORAH LAND introduced self and role at [facility], pt voices understanding and consents to assessment. Pt is A/O x4 and answers all questions appropriately at this time. Pt present in room. Care providers, pharmacy, and demographics verified/updated. Admitting Dx: CVA s/p TNK PCP:Ren Specialists:Pt denies Preferred Pharmacy:[facility] Insurance: [facility] Prescription Benefit: yes LNOK: Isaac Ovalle, Living Arrangements: Pt lives with in a two story home with 1 step to enter. Pt does not go upstairs. Pt reports she is I in ADL's and denies concerns at home. Transportation: Pt drives self and denies concerns with transportation. Pt is also able to transport pt. DME/HHC/SNF: Pt has a raised toilet, grab bars by toilet and a cane that is used intermittently. Pt denies hx of HHC or SNF stays. Pt states no concerns with going home at time of dc. Therapy to eval pt tomorrow. Pt states no further concerns/needs. CM to follow. Advised pt to ask CM if any further question/concerns/needs arise, voices understanding. Pt Goal: Home Plan: Home pending therapy evals
--- NOTE | 2023-03-06 16:32 | PN.HOSP_ITS ---
Reason for Visit Reason for Visit: Diagnoses Cerebral infarction, unspecified (03/05/23) Subjective Subjective Patient seen at bedside this morning, present. Patient laying comfortably in bed, conversing normally, no acute distress. States she feels fatigued this morning and has some generalized pain in her low back and down into her legs. She reports mild left-sided facial numbness, improved from yesterday. Denies any facial weakness or right arm or leg weakness or sensory changes. She does feel fatigued but improved from overnight. She denies any fevers or chills. Denies any chest pain or shortness of breath. No other acute concerns. Objective Data Objective Data Vital Signs: Vital Signs Temp Pulse Resp BP Pulse Ox O2 Del Method 97.6 F L 77 15 112/69 90 Room Air 03/06/23 09:21 03/06/23 11:21 03/06/23 11:21 03/06/23 11:21 03/06/23 11:21 03/06/23 11:21 Oxygen Delivery Method Room Air Weight: 80 kg Body Mass Index (BMI) 26.8 Intake & Output: Intake and Output for Last 24 Hours 03/04/23 03/05/23 03/06/23 23:59 23:59 23:59 Intake Total 156.67 / 156.67 Output Total 950 / 950 Balance -793.33 / -793.33 Lab / Micro Data 03/06/23 04:40 03/06/23 04:40 Labs: Laboratory Results - last 24 hr 03/05/23 21:57: WBC 8.9, RBC 4.94, Hgb 14.8, Hct 43.4, MCV 87.9, MCH 30.0, MCHC 34.1, RDW Std Deviation 38.7, RDW Coeff of Marc 12.0, Plt Count 232, MPV 11.0, Immature Gran % (Auto) 0.200, Neut % (Auto) 54.1, Lymph % (Auto) 30.0, Berks % (Auto) 8.9, Eos % (Auto) 5.7 H, Baso % (Auto) 1.1 H, Absolute Neuts (auto) 4.8, Absolute Lymphs (auto) 2.67, Nucleated RBC % 0, PT 12.4, INR 0.9, APTT 24.8, Sodium 136, Potassium 3.5, Chloride 106, Carbon Dioxide 20.0 L, Anion Gap 10, BUN 7, Creatinine 0.94, Estim Creat Clear Calc 71.42, Est GFR (MDRD) Af Amer 81, Est GFR (MDRD) Non-Af 67, BUN/Creatinine Ratio 7.5 L, Glucose 308 H, Calcium 8.7, Magnesium 1.9, Troponin I High Sens 10 03/05/23 22:30: Urine Opiates Screen NEGATIVE, Urine Methadone Screen NEGATIVE, Ur Barbiturates Screen NEGATIVE, Ur Phencyclidine Scrn NEGATIVE, Ur Amphetamines Screen NEGATIVE, MDMA (Ecstasy) Screen NEGATIVE, U Benzodiazepines Scrn NEGATIVE, Urine Cocaine Screen NEGATIVE, U Cannabinoids Screen POSITIVE H, Ur Drug Screen Comment 03/06/23 04:40: WBC 7.8, RBC 4.48, Hgb 13.6, Hct 40.5, MCV 90.4, MCH 30.4, MCHC 33.6, RDW Std Deviation 40.2, RDW Coeff of Marc 12.2, Plt Count 218, MPV 11.3, Immature Gran % (Auto) 0.300, Neut % (Auto) 47.4, Lymph % (Auto) 36.8, Berks % (Auto) 8.3, Eos % (Auto) 6.0 H, Baso % (Auto) 1.2 H, Absolute Neuts (auto) 3.7, Absolute Lymphs (auto) 2.87, Nucleated RBC % 0, Sodium 140, Potassium 3.7, Chlo ride 108 H, Carbon Dioxide 24.0, Anion Gap 8, BUN 9, Creatinine 0.80, Estim Creat Clear Calc 83.92, Est GFR (MDRD) Af Amer 97, Est GFR (MDRD) Non-Af 80, BUN/Creatinine Ratio 11.3, Glucose 283 H, Hemoglobin A1c 10.4 H, Calcium 8.1 L, Total Bilirubin 0.20, AST 14 L, ALT 25, Alkaline Phosphatase 74, Total Protein 6.3 L, Albumin 3.1 L, Globulin 3.2, Albumin/Globulin Ratio 1.0, Triglycerides 209 H, Cholesterol 170, LDL Cholesterol 79, VLDL Cholesterol 42 H, HDL Cholesterol 49, TSH 1.41 03/06/23 11:16: POC Glucose 182 H 03/06/23 13:49: POC Glucose 167 H Radiography Diagnostic Testing: Radiology Impression Brain CT 03/05/23 21:50 IMPRESSION: Negative Brain CT without contrast. N.B. : The above Results were Read Back by Bandar Courtney MD to Edy Baldwin DO, and understanding confirmed on 03/05/2023 22:08:48 (ET). Electronically Signed: Bandar Courtney MD at 22:09 EDT Reading Location ID and State: [facility] / [place] , Service support , ADDENDUM: 03/05/23 2216 IMPRESSION: Negative Brain CT without contrast. N.B. : The above Results were Read Back by Bandar Courtney MD to Edy Baldwin DO, and understanding confirmed on 03/05/2023 22:08:48 (ET). Electronically Signed: Bandar Courtney MD at 22:09 EDT Reading Location ID and State: [facility] / [place] , Service support , Head/Neck CTA 03/05/23 21:50 IMPRESSION: Normal CTA Head and neck with contrast. Electronically Signed: Bandar Courtney MD at 22:26 EDT , ADDENDUM: 03/05/23 2237 IMPRESSION: Normal CTA Head and neck with contrast. N.B. : The above Results were Read Back by Bandar Courtney MD to Edy Baldwin DO, and understanding confirmed on 03/05/2023 22:31:02 (ET). Electronically Signed: Bandar Courtney MD at 22:26 EDT , Chest X-Ray 03/05/23 22:38 IMPRESSION: Stable lung markings no visualized acute focal infiltrate. Electronically Signed: Eneida Magana MD at 22:53 EDT , Echocardiogram 03/05/23 23:32 Interpretation Summary The estimated ejection fraction is 55-60 %. With systolic function Mild TR No prior echocardiogram to compare Ordering Physician: Karina Moran Performed By: Ren Aj RCS Physical Exam Const alert, oriented x3, no apparent distress and average body habitus Constitutional Narrative: Appears fatigued, lying comfortably in bed, conversing normally, no acute di stress. General Appearance: cooperative and comfortable HEENT normocephalic, head/scalp atraumatic, hearing grossly normal bilaterally, nasal mucous membranes and turbinates normal and moist oral mucous membranes Eyes PERRL, EOMs intact bilaterally and conjunctivae normal Neck full ROM, no lymphadenopathy and supple Lymph Lymphatic: no lymphadenopathy noted Chest inspection of chest normal Resp normal respiratory effort, normal air movement, no use of accessory muscles and clear to auscultation bilaterally Cardio regular rate, regular rhythm, no murmurs and peripheral pulses 2+ throughout GI normal to inspection, nondistended, normoactive bowel sounds, soft to palpation, non-tender and non-distended Back/Spine normal ROM Extremity normal to inspection, full ROM and no pedal edema Skin no rashes or lesions noted Neuro Neuro Narrative: Patient reports decree sensation on left side of face. No right arm or leg sensory changes noted. Strength intact in right arm and leg. Psych mental status grossly normal Assessment & Plan Assessment/Plan (1) Stroke: PLAN: Plan Patient is a 52-year-old female with history of insulin-dependent type 2 diabetes with chronic neuropathy, anxiety/depression with suspected bipolar disorder, current tobacco use disorder, migraines and lupus who presented to [facility] on 03/05/2023 with right-sided paresthesias and w eakness. 1. Concern for acute CVA Patient reported acute onset of right-sided paresthesias as well as weakness and right arm and leg about 1 hour prior to admission. NIH score of [address] brain without contrast and CTA head/neck notably showed no abnormalities. However, given NIH score and risk factors as noted below, patient was given tenecteplase in the ED per teleneurology recommendations. Was then transferred to the ICU for further monitoring. Lipid panel fairly benign, hemoglobin A1c 10.1%. TSH normal. TTE with normal EF, no abnormalities. ? Rivet Passer following. Repeat CT brain without contrast ordered for tonight, 24 hours after administration of tPA to rule out intracranial bleed. MRI brain scheduled for tomorrow morning. Continue to monitor NIH scores. Initiated on high-dose statin, will determine plan for antiplatelet therapy prior to discharge. 2. Insulin-dependent type 2 diabetes with chronic neuropathy Home regimen of insulin 70/30 20 units 3 times daily. Appears that diabetes is poorly controlled. Hemoglobin A1c of 10.1% on admit. Patient states that blood sugars consistently run in the 300s to 400s at home. States she has been on the insulin 70/30 for several years. ? We will start Lantus 15 units nightly with sliding scale insulin as needed for now, given that patient will be n.p.o. through tomorrow morning. Monitor blood sugars, adjust accordingly. Will likely discharge on home regimen, but patient will need close outpatient follow-up for continued diabetes education further adjustments to insulin regimen. Continue home Lyrica. Chronic medical conditions: ? Anxiety/depression, suspected bipolar disorder: Stable. Continue home S eroquel, Lamictal, amitriptyline, prazosin. ? Tobacco use disorder: We will provide nicotine replacement if requested. Encouraged cessation. ? Lupus: Not on home medications. Outpatient follow-up with rheumatology. ? Chronic asthma: Not on home medications. Outpatient follow-up. DVT prophylaxis: SCDs CODE STATUS: Full code, verified Expected disposition: Home, 1 to 2 days Total clinical time spent by myself addressing the patient's medical issues, reviewing all the data, and collaborating with patient's care team: 35 minutes. Charges/Coding Visit Charges Inpatient E&M: 81274 Subs Hosp L2
[2023-03-06 16:38] LABS: Bedside Glucose 224 mg/dL (74-106)
--- NOTE | 2023-03-06 20:05 | CT_ITS ---
STUDY: CT BRAIN WITHOUT CONTRAST REASON FOR EXAM: Female, 52 years old. CVA s/p TKN RADIATION DOSAGE (If Supplied By Facility): CTDIvol = ( 44.99 ) mGy, DLP = ( 812.98 ) mGycm TECHNIQUE: Transaxial CT imaging of the brain was performed without administration of intravenous contrast material. Individualized dose optimization techniques were used for this CT. COMPARISON: 03/05/2023. FINDINGS: Normal soft tissue structures. Normal calvarium. Normal size ventricles and extra-axial spaces for the patient''s age. Normal white matter tracts of the cerebral hemispheres. Normal basal ganglia and thalami. Normal brainstem. Normal cerebellum. There is no intracranial hemorrhage. There are no findings of an acute ischemic infarction. Normal visualized paranasal sinuses. CT/Brain/Head without Contrast IMPRESSION: Normal unenhanced CT scan of the brain. Electronically Signed: Catalina Umaña MD at 22:27 EDT ,
[2023-03-06] MEDS: Amitriptyline 25 MG Tablet PO (21:18)
[2023-03-06] MEDS: Doxazosin 1 MG Tablet PO (21:18)
[2023-03-06] MEDS: Atorvastatin Calcium 80 MG Tablet PO (21:18)
[2023-03-06] MEDS: QUEtiapine 25 MG Tablet 50 MG PO (21:18)
[2023-03-06] MEDS: Insulin Glargine-YFGN 100 UNIT/ML Pen 15 UNIT SC (21:19)
[2023-03-06 21:33] LABS: Bedside Glucose 248 mg/dL (74-106)
--- NOTE | 2023-03-06 23:52 | PCM.HOSP.N ---
Hospitalist Note CT head at 24 hours without acute findings, will add ASA.
[2023-03-07] VITALS (17 sets, daily range): BP systolic 91–136; BP diastolic 53–76; PULSE 72–93; RESP 14–23; TEMP 36.3–36.6; O2SAT 90–97; BMI 26.9
[2023-03-07] MEDS: Aspirin 81 MG TAB.CHEW PO ×2 (00:11→08:15)
[2023-03-07] MEDS: Insulin Lispro 100 UNIT/ML INSULN.PEN SC ×3 (02:54→12:06)
[2023-03-07 03:14] LABS: Bedside Glucose 201 mg/dL (74-106)
[2023-03-07] MEDS: Pregabalin 50 MG Capsule PO ×2 (05:04→12:08)
[2023-03-07 05:27] LABS: Absolute Lymphocyte Count 2.34 X10^3/uL (0.83-4.51); Absolute Neutrophil Count 2.4 X10^3/uL (2.0-7.7); Basophil# 0.07 X10^3/uL; Basophil% 1.2 % (0-1); Eosinophil# 0.39 X10^3/uL; Eosinophils% 6.9 % (0-5); Hematocrit 39.7 % (37-47); Hemoglobin 13.6 g/dL (12.0-15.0); Lymphocyte # 2.34 X10^3/ul (0.83-4.51); Lymphocyte % 41.5 % (19-41); Mean Corp Hgb Conc 34.3 g/dL (32-36); Mean Corpuscular Hgb 30.6 pg (27.0-32.0); Mean Corpuscular Volume 89.4 fL (81-99); Mean Platelet Vol. 10.8 fl (6.2-12.0); Monocyte# 0.45 X10^3/uL; NRBC Flagged by Analyzer 0 % (0-5); Neutrophil # 2.37 X10^3/uL (2.7-7.7); Platelet Count 198 K/mm3 (150-450); RBC Distribution Width CV 11.9 % (11.6-14.6); RBC Distribution Width SD 38.8 fl (35.1-43.9); Red Blood Count 4.44 M/mm3 (4.2-5.4); White Blood Count 5.6 K/mm3 (4.4-11.0)
[2023-03-07 05:44] LABS: AST(SGOT) 12 U/L (15-37); Alanine Aminotransfer ALT/SGPT 27 U/L (13-56); Alkaline Phosphatase 75 U/L (45-117); Anion Gap 5 (5-15); BUN 10 mg/dL (7-18); BUN/Creat Ratio 15.4 RATIO (10-20); Calcium,Total 8.2 mg/dL (8.5-10.1); Chloride 108 mmol/L (98-107); Creatinine, Serum 0.65 mg/dL (0.55-1.02); EST Glomerular Filtration Rate 102 mL/min (>60); Est Glom Filt Rate - Afr Amer 124 mL/min (>60); Estimated Creatinine Clearance 103.29 ml/min; Globulin 2.9 g/dL (2.2-4.2); Glucose 213 mg/dL (74-106); Potassium 3.5 mmol/L (3.5-5.1); Protein, Total 5.9 g/dL (6.4-8.2); Sodium Level 138 mmol/L (136-145)
--- NOTE | 2023-03-07 06:00 | MRI_ITS ---
STUDY: MRI BRAIN WITHOUT CONTRAST REASON FOR EXAM: Female, 52 years old. CVA -- MRI 24 hours after IV thrombolytic administration TECHNIQUE: Standardized multiplanar fat and water weighted pulse sequences were obtained. COMPARISON: CT March 06, 2023. FINDINGS: Normal size of the ventricles and extra-axial spaces for the patient''s age. Normal white matter tracts of the supratentorial brain. There is no evidence for recent intracranial ischemia or other cause of cytotoxic edema on diffusion weighted imaging (DWI). Normal T2* images of the brain without demonstrated susceptibility artifact. There is no demonstrated hemosiderin stain. Normal bilateral basal ganglia. Normal thalami. There is no extra-axial fluid accumulation. Normal flow voids within the major intracranial circulation suggesting patency by spin echo criteria. Normal sella turcica, pituitary gland, infundibular stalk, optic chiasm and hypothalamus. Normal tectal plate and pineal gland. Normal midbrain, rufus and medulla. Normal cerebellum. Normal basal cisterns. Normal bilateral temporal bones. Normal bilateral internal auditory canals. No demonstrated orbital abnormality, within the constraints of a routine brain study. Normal visualized paranasal sinuses. Normal calvarium and skull base. Normal visualized soft tissue structures. Normal visualized upper cervical spine. MRI/Brain without Contrast IMPRESSION: Normal unenhanced MRI of the brain. Electronically Signed: Edison Coello MD at 13:31 EDT ,
--- NOTE | 2023-03-07 09:49 | CASEMGMT ---
Social Work SW spoke w/pt and in room. Pt confirmed Isaac is POA. SW asked to bring in documents as able, states understanding. HOUSTON Minro
--- NOTE | 2023-03-07 10:34 | PN.HOSP_ITS ---
Reason for Visit Reason for Visit: Diagnoses Cerebral infarction, unspecified (03/05/23) Subjective Subjective No acute events overnight. Patient seen at bedside this morning. Lying comfortably in bed, conversing normally, no acute distress. Still appears somewhat fatigued this morning, but improved from yesterday. Patient states that she feels somewhat better today than yesterday. States the left-sided facial numbness has slowly been improving. She denies any new neurological symptoms. She has been eating and drinking well since this morning. She denies any fevers or chills. She is hoping to go home this afternoon if possible. No other acute concerns. Objective Data Objective Data Vital Signs: Vital Signs Temp Pulse Resp BP Pulse Ox O2 Del Method 97.4 F L 83 16 129/68 H 90 Room Air 03/07/23 03:00 03/07/23 10:29 03/07/23 10:29 03/07/23 10:29 03/07/23 10:29 03/07/23 10:29 Oxygen Delivery Method Room Air Weight: 80.2 kg Body Mass Index (BMI) 26.9 Intake & Output: Intake and Output for Last 24 Hours 03/05/23 03/06/23 03/07/23 23:59 23:59 23:59 Intake Total 806.67 / 806.67 Output Total 2100 / 2100 650 / 650 Balance -1293.33 / -1293.33 -650 / -650 Lab / Micro Data 03/07/23 05:15 03/07/23 05:15 Labs: Laboratory Results - last 24 hr 03/06/23 11:16: POC Glucose 182 H 03/06/23 13:49: POC Glucose 167 H 03/06/23 16:16: POC Glucose 224 H 03/06/23 21:14: POC Glucose 248 H 03/07/23 02:52: POC Glucose 201 H 03/07/23 05:15: WBC 5.6, RBC 4.44, Hgb 13.6, Hct 39.7, MCV 89.4, MCH 30.6, MCHC 34.3, RDW Std Deviation 38.8, RDW Coeff of Marc 11.9, Plt Count 198, MPV 10.8, Immature Gran % (Auto) 0.400, Neut % (Auto) 42.0 L, Lymph % (Auto) 41.5 H, Warren % (Auto) 8.0, Eos % (Auto) 6.9 H, Baso % (Auto) 1.2 H, Absolute Neuts (auto) 2 .4, Absolute Lymphs (auto) 2.34, Nucleated RBC % 0, Sodium 138, Potassium 3.5, Chloride 108 H, Carbon Dioxide 25.0, Anion Gap 5, BUN 10, Creatinine 0.65, Estim Creat Clear Calc 103.29, Est GFR (MDRD) Af Amer 124, Est GFR (MDRD) Non-Af 102, BUN/Creatinine Ratio 15.4, Glucose 213 H, Calcium 8.2 L, Total Bilirubin 0.40, AST 12 L, ALT 27, Alkaline Phosphatase 75, Total Protein 5.9 L, Albumin 3.0 L, Globulin 2.9, Albumin/Globulin Ratio 1.0 Radiography Diagnostic Testing: Radiology Impression Echocardiogram 03/05/23 23:32 Interpretation Summary The estimated ejection fraction is 55-60 %. With systolic function Mild TR No prior echocardiogram to compare Ordering Physician: Karina Moran Performed By: Ren Aj RCS Brain CT 03/06/23 20:05 IMPRESSION: Normal unenhanced CT scan of the brain. Electronically Signed: Catalina Umaña MD at 22:27 EDT , Physical Exam Const alert, oriented x3, no apparent distress and average body habitus Constitutional Narrative: Pleasant female, lying comfortably in bed, conversing normally, no acute distress. Appears somewhat fatigued, but improved from yesterday. General Appearance: cooperative and comfortable HEENT normocephalic, head/scalp atraumatic, hearing grossly normal bilaterally, nasal mucous membranes and turbinates normal and moist oral mucous membranes Eyes PERRL, EOMs intact bilaterally and conjunctivae normal Neck full ROM, no lymphadenopathy and supple Lymph Lymphatic: no lymphadenopathy noted Chest inspection of chest normal Resp normal respiratory effort, normal air movement, no use of accessory muscles and clear to auscultation bilaterally Cardio regular rate, regular rhythm, no murmurs and peripheral pulses 2+ throughout GI normal to inspection, nondistended, normoactive bowel sounds, soft to palpation, non-tender and non-distended Back/Spine normal ROM Extremity normal to inspection, full ROM and no pedal edema Skin no rashes or lesions noted Neuro Neuro Narrative: Patient reports decreased sensation on left side of face, improving. No right arm or leg sensory changes noted. Strength intact in right arm and leg. Psych mental status grossly normal Assessment & Plan Assessment/Plan (1) Stroke: PLAN: Plan Patient is a 52-year-old female with history of insulin-dependent type 2 diabetes with chronic neuropathy, anxiety/depression with suspected bipolar disorder, current tobacco use disorder, migraines and lupus who presented to [facility] on 03/05/2023 with right-sided paresthesias and weakness. 1. Concern for acute CVA Patient reported acute onset of right-sided paresthesias as well as weakness and right arm and leg about 1 hour prior to admission. NIH score of [address] brain without contrast and CTA head/neck notably showed no abnormalities. How ever, given NIH score and risk factors as noted below, patient was given tenecteplase in the ED per teleneurology recommendations. Was then transferred to the ICU for further monitoring. Lipid panel fairly benign, hemoglobin A1c 10.1%. TSH normal. TTE with normal EF, no abnormalities. Repeat CT brain without contrast on evening of 03/06 showed no acute changes, no concern for bleed. Aspirin started on beginning of 03/06. ? [employer] following. MRI brain scheduled for this morning. If normal, patient likely okay for home this afternoon. Continue high-dose statin and aspirin. 2. Insulin-dependent type 2 diabetes with chronic neuropathy Home regimen of insulin 70/30 20 units 3 times daily. Appears that diabetes is poorly controlled. Hemoglobin A1c of 10.1% on admit. Patient states that blood sugars consistently run in the 300s to 400s at home. States she has been on the insulin 70/30 for several years. ?Continue Lantus 15 units nightly with sign scale insulin. Blood sugars have been stable to this point. Can adjust regimen as needed as patient is not eating. Plan to resume home regimen on discharge. Recommend close outpatient follow-up for continued diabetes education and further adjustments to insulin regimen. Continue home Lyrica. Chronic medical conditions: ? Anxiety/depression, suspected bipolar disorder: Stable. Continue home Seroquel, Lamictal, amitriptyline, prazosin. ? Tobacco use disorder: We will provide nicotine replacement if requested. Encouraged cessation. ? Lupus: Not on home medications. Outpatient follow-up with rheumatology. ? Chronic asthma: Not on home medications. Outpatient follow-up. DVT prophylaxis: SCDs CODE STATUS: Full code, verified Expected disposition: Home, 1 to 2 days Total clinical time spent by myself addressing the patient's medical issues, reviewing all the data, and collaborating with patient's care team: 35 minutes. Charges/Coding Visit Charges Inpatient E&M: 34864 Subs Hosp L2
[2023-03-07 12:21] LABS: Bedside Glucose 266 mg/dL (74-106)
--- NOTE | 2023-03-07 14:57 | CASEMGMT ---
DEBORAH LAND NOTE: PT/OT evals have been completed. Additional therapy recommended. OT rec OP therapy. DEBORAH LAND to room. Pt resting in bed. Introduced self and role. Pt made aware of therapy's recommendations and pt is interested in OP therapy. Script obtained from Dr Villar and provided to pt. Questions answered. Pt aware she can take to any OP therapy location of choice. Pt denies having further discharge planning needs or concerns. Chel TAYN DEBORAH CM
--- NOTE | 2023-03-07 15:23 | PCM.DC ---
Discharge Instructions Diet Discharge Diet: No restrictions Activity Discharge Activity: Return to Normal Activity Weight Bearing Status: Full weight bearing Follow Up Care Please Follow Up With: Kristina Mcclure DO When: As needed Test Results: Test results from this visit will be discussed in further detail at your follow-up appointment, if applicable. Pending Tests Upon Discharge: None Discharge Plan Admission Admit Date/Time: 03/05/23 22:53 Primary Reason for Your Visit: Acute CVA Attending Provider: Delvin Villar Primary Care Provider: Kristina Mcclure Consulting Providers: Roshan Recio; Bebo Diez; Minh Mendoza; Kofi Rodas; Zaheer Chatterjee; Sanjana Rodriguez NP; Karina Moran Instructions Additional Instructions / Restrictions: Please start taking aspirin 81 mg daily and Lipitor 40 mg daily on discharge. Continue to take all other home medications the same. Follow-up with your primary care doctor as needed. Discharge Orders/Prescriptions Prescriptions: New aspirin 81 mg Tablet,Chewable 81 mg PO BREAKFAST 90 Days Qty: 90 0RF atorvastatin 40 mg tablet 40 mg PO QHS 90 Days Qty: 90 0RF Continued pregabalin [Lyrica] 50 mg Capsule 50 mg PO TID quetiapine [Seroquel] 50 mg Tablet 50 mg PO QHS insulin asp prt-insulin aspart [Novolog Mix 70-30FlexPen U-100] 100 unit/mL (70-30) Insulin Pen 20 unit SUBCUT TID amitriptyline 25 mg tablet 25 - 50 mg PO QHS prazosin 1 mg capsule 1 mg PO QHS Patient Comments: TAKE ONE CAPSULE BY MOUTH NIGHTLY NEEDED FOR SLEEP. MAY INCREASE BY 1 CAPSULE (1 MG) EVERY 5 NIGHTS TO A TOTAL NIGHTLY DOSE OF 5 MG. START AFTER TRAZODONE TAPER. propranolol 20 mg tablet 20 mg PO QHS Patient Comments: TAKE 10 MG (ONE-HALF TABLET) TO 40 MG (2 TABLETS) BY MOUTH UP TO TWICE DAILY NEEDED FOR ANXIETY. HEART RATE MUST BE ABOVE 60 TO TAKE lurasidone 40 mg tablet tramadol 50 mg tablet PO Q6H PRN (Reason: lynphoma,lupus) Discontinued lamotrigine [Lamictal] 200 mg Tablet 400 mg PO DAILY Patient Comments: stopped taking 3 years ago Referrals / Follow Up: Oberhauser,Kristina, DO [Primary Care Provider] - Older,Eusebia PRACTICE SPECIALIST, PRACTICE SPECIALIST-C [Non-Staff] - Disposition Disposition (needs filled in before D/C Order can be placed): Home, Self Care
--- NOTE | 2023-03-07 15:27 | PCM.DC.SUM ---
Providers Date of Admission: 03/05/23 Date of Discharge: 03/07/23 Primary Care Physician: Dr. Kristina Mcclure, DO Consultations 03/05/23 22:21 Consult: Hotel Assistant General Manager / Pulmonary Medicine Routine Consulting Provider: Pulmonary Medicine jessy Kinsey Reason for Consult: stroke for thrombolytic administration EMERGENT Consult: Yes Notified: Yes Date Notified: 03/05/23 Time Notified: 22:21 Method of Notification: Text Comments:: Consult may be done in ED or ICU 03/05/23 23:32 Consult: Hotel Assistant General Manager / Pulmonary Medicine Routine Consulting Provider: Pulmonary Medicine jessy Kinsey Reason for Consult: stroke for thrombolytic EMERGENT Consult: Yes MD Notified: Yes Date Notified: 03/05/23 Time Notified: 22:56 Method of Notification: ED Physician Initiated Reason For Visit: CVA S/P TNK Diagnosis Discharge Diagnosis (1) Stroke: Status: Acute Code(s): I63.9 - Cerebral infarction, unspecified Medications at Discharge Home Medications insulin aspar prot-insulin aspart 100 unit/mL (70-30) subcutaneous pen (Novolog Mix 70-30FlexPen U-100) 20 unit subcut TID 01/18/22 pregabalin 50 mg capsule (Lyrica) 50 mg PO TID 01/18/22 quetiapine 50 mg tablet (Seroquel) 50 mg PO QHS 01/18/22 amitriptyline 25 mg tablet 25 - 50 mg PO QHS 03/05/23 prazosin 1 mg capsule 1 mg PO QHS 03/05/23 propranolol 20 mg tablet 20 mg PO QHS 03/05/23 lurasidone 40 mg tablet mg bipolar 03/06/23 tramadol 50 mg tablet mg PO 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 PRN lynphoma,lupus 03/06/23 aspirin 81 mg chewable tablet 81 mg PO BREAKFAST 90 days #90 tabs 03/07/23 atorvastatin 40 mg tablet 40 mg PO QHS 90 days #90 tabs 03/07/23 Hospital Course Procedures EKG, Transthoracic echo and - (CT brain without contrast x2, CTA head/neck, MRI brain without contrast, chest x-ray, tPA administration for acute CVA) Summary of Care Provided Minutes Spent on Discharge: 38 Hospital Course: Patient is a 52-year-old female with history of insulin-dependent type 2 diabetes with chronic neuropathy, anxiety/depression with suspected bipolar disorder, current tobacco use disorder, migraines and lupus who presented to [facility] on 03/05/2023 with right-sided paresthesias and weakness. Multiple medical conditions addressed during hospitalization as noted below. Acute CVA: Patient reported acute onset of right-sided paresthesias as well as weakness and right arm and leg about 1 hour prior to admission. NIH score of [address] brain without contrast and CTA head/neck notably showed no abnormalities. However, given NIH score and risk factors as noted below, patient was given tenecteplase in the ED per teleneurology recommendations. Was then transferred to the ICU for further monitoring. Lipid panel fairly benign, hemoglobin A1c 10.1%. TSH normal. TTE with normal EF, no abnormalities. Repeat CT brain without contrast on evening of 03/06 showed no acute changes, no concern for bleed. MRI brain 03/07 showed no abnormalities. Patient initiated on aspirin and high-dose statin during admission. Was evaluated by PT/OT, planning for outpatient physical therapy on discharge, referral placed. Discharged home on 03/07 in stable condition. Insulin-dependent type 2 diabetes with chronic neuropathy: Home regimen of insulin 70/30 20 units 3 times daily. Hemoglobin A1c of 10.1% on admit. Patient stated that blood sugars consistently run in the 300s to 400s at home. Stated she has been on the insulin 70/30 for several years. Initiated on Lantus 15 units nightly with sliding scale insulin while inpatient, with adequate control of blood sugars. Discharged home on home insulin regimen, with recommendation to follow-up closely with PCP outpatient. Discharge diagnoses: ? Acute CVA ? Type 2 diabetes ? Anxiety/depression, suspected bipolar disorder ? Tobacco use disorder ? Lupus ? Asthma PCP follow-up: Recommend close follow-up for diabetes management. Can consider follow-up with neurology as needed. Total clinical time spent by myself addressing the patient's discharge needs: 38 minutes. Physical Exam Const alert, oriented x3, no apparent distress and average body habitus Constitutional Narrative: Pleasant female, lying comfortably in bed, conversing normally, no acute distress. Appears somewhat fatigued, but improved from yesterday. General Appearance: cooperative and comfortable HEENT normocephalic, head/scalp atraumatic, hearing grossly normal bilaterally, nasal mucous membranes and turbinates normal and moist oral mucous membranes Eyes PERRL, EOMs intact bilaterally and conjunctivae normal Neck full ROM, no lymphadenopathy and supple Lymph Lymphatic: no lymphadenopathy noted Chest inspection of chest normal Resp normal respiratory effort, normal air movement, no use of accessory muscles and clear to auscultation bilaterally Cardio regular rate, regular rhythm, no murmurs and peripheral pulses 2+ throughout GI normal to inspection, nondistended, normoactive bowel sounds, soft to palpation, non-tender and non-distended Back/Spine normal ROM Extremity normal to inspection, full ROM and no pedal edema Skin no rashes or lesions noted Neuro Neuro Narrative: Patient reports decreased sensation on left side of face, improving. No right arm or leg sensory changes noted. Strength intact in right arm and leg. Psych mental status grossly normal Weight / BMI Weight Weight: 80.2 kg Body Mass Index (BMI) 26.9 ABG / Lab / Microbiology Data 03/07/23 05:15 03/07/23 05:15 Laboratory: Laboratory Results - last 24 hr 03/06/23 16:16: POC Glucose 224 H 03/06/23 21:14: POC Glucose 248 H 03/07/23 02:52: POC Glucose 201 H 03/07/23 05:15: WBC 5.6, RBC 4.44, Hgb 13.6, Hct 39.7, MCV 89.4, MCH 30.6, MCHC 34.3, RDW Std Deviation 38.8, RDW Coeff of Marc 11.9, Plt Count 198, MPV 10.8, Immature Gran % (Auto) 0.400, Neut % (Auto) 42.0 L, Lymph % (Auto) 41.5 H, [place] % (Auto) 8.0, Eos % (Auto) 6.9 H, Baso % (Auto) 1.2 H, Absolute Neuts (auto) 2.4, Absolute Lymphs (auto) 2.34, Nucleated RBC % 0, Sodium 138, Potassium 3.5, Chloride 108 H, Carbon Dioxide 25.0, Anion Gap 5, BUN 10, Creatinine 0.65, Estim Creat Clear Calc 103.29, Est GFR (MDRD) Af Amer 124, Est GFR (MDRD) Non-Af 102, BUN/Creatinine Ratio 15.4, Glucose 213 H, Calcium 8.2 L, Total Bilirubin 0.40, AST 12 L, ALT 27, Alkaline Phosphatase 75, Total Protein 5.9 L, Albumin 3.0 L, Globulin 2.9, Albumin/Globulin Ratio 1.0 03/07/23 11:05: POC Glucose 266 H Radiography Diagnostic Testing: Radiology Impression Brain CT 03/06/23 20:05 IMPRESSION: Normal unenhanced CT scan of the brain. Electronically Signed: Catalina Umaña MD at 22:27 EDT , Brain MRI 03/07/23 06:00 IMPRESSION: Normal unenhanced MRI of the brain. Electronically Signed: Edison Coello MD at 13:31 EDT , D/C Instructions Discharge Diet: No restrictions Weight Bearing Status: Full weight bearing Pending Tests Upon Discharge: None Please Follow Up With: Kristina Mcclure, DO When: As needed Meaningful Use Info Meaningful Use Diagnoses (Choose all that apply): Ischemic CVA CVA Therapy Assessed for PT,OT and/or ST?: Yes Ischemic Stroke Antithrombotic order at d/c?: Yes Dx of Atrial fib/flutter?: No Statins at discharge?: Yes Primary Dx Acute Ischemic CVA?: Yes Discharge Plan Admission Admit Date/Time: 03/05/23 22:53 Primary Reason for Your Visit: Acute CVA Attending Provider: Delvin Villar Primary Care Provider: Kristina Mcclure Consulting Providers: Roshan Recio; Bebo Diez; Minh Mendoza; Kofi Rodas; Zaheer Chatterjee; Sanjana Rodriguez NP; Karina Moran Instructions Additional Instructions / Restrictions: Please start taking aspirin 81 mg daily and Lipitor 40 mg daily on discharge. Continue to take all other home medications the same. Follow-up with your primary care doctor as needed. Discharge Orders/Prescriptions Prescriptions: New aspirin 81 mg Tablet,Chewable 81 mg PO BREAKFAST 90 Days Qty: 90 0RF atorvastatin 40 mg tablet 40 mg PO QHS 90 Days Qty: 90 0RF Continued pregabalin [Lyrica] 50 mg Capsule 50 mg PO TID quetiapine [Seroquel] 50 mg Tablet 50 mg PO QHS insulin asp prt-insulin aspart [Novolog Mix 70-30FlexPen U-100] 100 unit/mL (70-30) Insulin Pen 20 unit SUBCUT TID amitriptyline 25 mg tablet 25 - 50 mg PO QHS prazosin 1 mg capsule 1 mg PO QHS Patient Comments: TAKE ONE CAPSULE BY MOUTH NIGHTLY NEEDED FOR SLEEP. MAY INCREASE BY 1 CAPSULE (1 MG) EVERY 5 NIGHTS TO A TOTAL NIGHTLY DOSE OF 5 MG. START AFTER TRAZODONE TAPER. propranolol 20 mg tablet 20 mg PO QHS Patient Comments: TAKE 10 MG (ONE-HALF TABLET) TO 40 MG (2 TABLETS) BY MOUTH UP TO TWICE DAILY NEEDED FOR ANXIETY. HEART RATE MUST BE ABOVE 60 TO TAKE lurasidone 40 mg tablet tramadol 50 mg tablet PO Q6H PRN (Reason: lynphoma,lupus) Discontinued lamotrigine [Lamictal] 200 mg Tablet 400 mg PO DAILY Patient Comments: stopped taking 3 years ago Referrals / Follow Up: Kristina Mcclure DO [Primary Care Provider] - Older,Eusebia [employer] DYNAM[employer] MANAGER ARCHITECT, [employer] MANAGER ARCHITECT-C [Non-Staff] - Disposition Disposition (needs filled in before D/C Order can be placed): Home, Self Care Charges/Coding Visit Charges Inpatient E&M: 04536 Disch Hosp >30min
[2023-03-10 18:07] LABS: Lamotrigine (Lamictal) Level < 1.0 ug/mL (2.0-20.0)
== END 2023-03-07 15:55 | disposition home or self-care (01) | DRG 62 ==
LOC: ED 23:03 → ICU 23:13
PROVIDERS: Admitting Provider Family Medicine; Emergency Provider Emergency Medicine; PCP Internal Medicine; Visit Provider Hospitalist
DX: I63.9 Cerebral infarction, unspecified (principal); G81.91 Hemiplegia, unspecified affecting right dominant side; R47.01 Aphasia; E11.40 Type 2 diabetes mellitus with diabetic neuropathy, unspecified; M32.9 Systemic lupus erythematosus, unspecified; E11.65 Type 2 diabetes mellitus with hyperglycemia; F31.9 Bipolar disorder, unspecified; Z79.4 Long term (current) use of insulin; J45.909 Unspecified asthma, uncomplicated; F17.210 Nicotine dependence, cigarettes, uncomplicated; F41.9 Anxiety disorder, unspecified; R03.0 Elevated blood-pressure reading, without diagnosis of hypertension; R29.810 Facial weakness; R47.81 Slurred speech; R29.705 NIHSS score 5; Z79.899 Other long term (current) drug therapy
CPT/HCPCS: 70450; 70496; 70498; 70551; 71045; 80048; 80053; 80061; 80307; 82542; 82962; 83036; 83735; 84443; 84484; 85025; 85610; 85730; 92526; 92610; 93005; 93306; 94668; 97162; 97166; 97802; 99285; J3101; J7030; J7050; Q9957; Q9967; A4216; C8929

== ENCOUNTER 2023-04-26 17:14 | Observation (INO) | payer MEDICARE, SELFPAY ==
[2023-04-26] VITALS (12 sets, daily range): BP systolic 107–143; BP diastolic 66–92; PULSE 95–118; RESP 14–22; TEMP 36.3–36.5; O2SAT 92–97; BMI 29.7; BMI 26.5
--- NOTE | 2023-04-26 17:20 | CT_ITS ---
We are attempting to reach an attending provider to discuss findings. An addendum with communication details will be sent when the communication is complete. INDICATION: Neuro deficit, acute, stroke suspected EXAMINATION: CT BRAIN - CT Head Stroke Protocol W/O Contrast Injection TECHNIQUE: Multiple axial images were obtained of the head without intravenous contrast. A radiation dose optimization technique was used for this scan. IV Contrast dosage and agent: None. RADIATION DOSAGE (If Supplied By Facility): CTDIvol = ( 44.99 ) mGy, DLP = ( 812.98 ) mGycm COMPARISON: FINDINGS: BRAIN PARENCHYMA: No intra- or extra-axial hemorrhage. No evidence of acute infarct. No intracranial mass or mass effect. There is preservation of the duron/white matter interface. Posterior fossa structures are unremarkable. CSF SPACES: Appropriate for age. No hydrocephalus. Basal cisterns are patent. CALVARIUM, SKULL BASE, PARANASAL SINUSES AND MASTOID AIR CELLS: Clear. No discrete lytic or blastic abnormalities. ORBITS: Both globes, extraocular muscles, optic nerves and retrobulbar fat appear unremarkable. ASPECTS Score for Acute Strokes: 10 CT/STROKE Brain/Head without Cont IMPRESSION: Negative Brain CT without contrast. Electronically Signed: Daron Cannon DO at 17:47 EDT Reading Location ID and State: [facility] / [place] Tel [phone], Service support ,
--- NOTE | 2023-04-26 17:21 | CT_ITS ---
We are attempting to reach an attending provider to discuss findings. An addendum with communication details will be sent when the communication is complete. INDICATION: Neuro deficit, acute, stroke suspected EXAMINATION: CTA BRAIN WITH CONTRAST TECHNIQUE: Noncontrast axial images were obtained of the brain. Subsequently, routine carotid CT angiogram protocol was performed without and with IV contrast. In addition, images were obtained of the [place]. NASCET criteria using the distal ICAs for comparison were used for evaluation of stenoses. 3D reconstructions were reviewed. A radiation dose optimization technique was used for this scan. IV Contrast dosage and agent: COMPARISON: FINDINGS: --CTA NECK: AORTIC ARCH AND BRANCHES: Normal anatomy, patent. RIGHT CCA: No occlusion, significant stenosis or dissection. RIGHT ICA: No occlusion, significant stenosis or dissection. LEFT CCA: No occlusion, significant stenosis or dissection. LEFT ICA: No occlusion, significant stenosis or dissection. RIGHT VERTEBRAL ARTERY: No occlusion, significant stenosis or dissection. LEFT VERTEBRAL ARTERY: No occlusion, significant stenosis or dissection. NECK SOFT TISSUES: Unremarkable. --CTA HEAD: --Anterior circulation: ICAs: No significant stenosis at the intracranial/visualized segments. ACAs: No significant stenosis at the visualized segments. ACOM: Present. MCAs: No significant stenosis at the visualized segments. --Posterior circulation: PCOMs: Nonvisualization bilaterally. 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 BASILAR ARTERY: No significant stenosis. VERTEBRAL ARTERIES: No significant stenosis at the intradural/visualized segments. No evidence of intracranial aneurysm or vascular malformation. CT/STROKE CTA Head AND Neck W/Con IMPRESSION: Negative CTA Carotid, and CTA Brain. Electronically Signed: Daron Cannon DO at 17:57 EDT Reading Location ID and State: [facility] / [place] Tel [phone], Service support ,
--- NOTE | 2023-04-26 17:21 | EDS_ITS ---
HPI History of Present Illness Chief Complaint: Stroke Alert Informant: patient and spouse/S.O. Onset/Context/Timing Onset: Today Context: Sudden Onset Timing: Continuous Quality and Location: Positive for Left Face Parasthesia, Left Arm Weakness and Left Leg Weakness; Negative for Slurred Speech, Expressive Aphasia or Receptive Aphasia Current Severity: Mild Maximum Severity: Mild Associated Symptoms Associated Symptoms: Negative for Headache, Nausea, Vomiting or Chest Pain Narrative Narrative: Female history of prior stroke about 2 months ago, lupus and diabetes. States with her prior stroke she has had left arm and leg weakness since the stroke. She was given clot busting medication for that stroke. She was treated here and was not transferred. That her strength is about 95% back to its baseline. Today around 1:00 develop similar symptoms. Says she has tingling and numbness on left side of her face and weakness to her left arm and leg. Denies any headache. She is on aspirin but no other blood thinners. States she had v omiting and diarrhea last night. Prior similar symptoms: Yes Recent Illness/Hospitalization: Yes PFSH PFSH Medical History Anxiety and depression Asthma Diabetes IDDM (insulin dependent diabetes mellitus) Lupus Migraines Tobacco use Home Medications insulin aspar prot-insulin aspart 100 unit/mL (70-30) subcutaneous pen (Novolog Mix 70-30FlexPen U-100) 20 unit subcut TID 01/18/22 [History Last Taken Unknown] pregabalin 50 mg capsule (Lyrica) 50 mg PO TID 01/18/22 [History Last Taken Unknown] quetiapine 50 mg tablet (Seroquel) 50 mg PO QHS 01/18/22 [History Last Taken Unknown] amitriptyline 25 mg tablet 25 - 50 mg PO QHS 03/05/23 [History Last Taken Unknown] lurasidone 40 mg tablet 40 mg PO DAILY bipolar 03/06/23 [History Last Taken 03/04/23 22:00] tramadol 50 mg tablet 50 mg PO Q8H lynphoma,lupus 03/06/23 [History Last Taken 03/05/23 06:00] aspirin 81 mg chewable tablet 81 mg PO BREAKFAST 90 days #90 tabs 03/07/23 [Rx Last Taken Unknown] atorvastatin 40 mg tablet 40 mg PO QHS 90 days #90 tabs 03/07/23 [Rx Last Taken Unknown] gabapentin 300 mg capsule 300 mg PO Q8H 04/26/23 [History Last Taken Unknown] insulin glargine 100 unit/mL (3 mL) subcutaneous pen (Lantus Solostar U-100 Insulin) 15 unit subcut QHS 04/26/23 [History Last Taken Unknown] Allergy/AdvReac Type Severity Reaction Status Date / Time coconut oil Allergy Rash Verified 04/26/23 17:19 venom-honey bee Allergy Unknown Verified 04/26/23 17:19 Family History Aunt Breast cancer Cancer vulvar cancer Grandmother Cancer vulvar Father CVA (cerebral vascular accident) Hypertension Other Heart disease Surgical History H/O: hysterectomy History of appendectomy History of lumpectomy Hx of cholecystectomy Hx of tonsillectomy Social History household members: spouse Smoking Status: Current every day smoker tobacco type: cigarettes alcohol intake: current details: social substance use type: marijuana caffeine: Yes what type of physical activity do you participate in: none seatbelt use: always do you feel safe at home: Yes 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 Review of Systems ROS Unobtainable: Denies due to encephalopathy Constitutional Constitutional ED: Denies chills or fever(s) Eyes Eyes: Denies blurry vision ENT ENT ED: Denies ear pain Cardiovascular Cardiovascular: Denies chest pain or palpitations Respiratory/Chest Respiratory/Chest: Denies cough or dyspnea Gastrointestinal Gastrointestinal: Denies abdominal pain Genitourinary Genitourinary ED: Denies dysuria or hematuria Musculoskeletal Musculoskeletal: Denies arthralgias Integumentary Denies abscess or Abrasions Neurologic Neurologic: Denies headache(s) Psychiatric Psychiatric: Denies anxiety or depression Endocrine Endocrinology: Denies polydipsia Hematologic/Lymphatic Hematologic/Lymphatic: Denies easy bleeding or easy bruising Allergic/Immunologic Allergic/Immunologic ED: Denies mouth swelling or urticaria EXAM Physical Exam Narrative Exam Narrative: -year-old female vital signs stable afebrile. present in room. HEENT exam pupils round reactive light. No facial droop. Normal speech. Subjective decrease sensation left face. Neck nontender. Lungs are clear. Heart regular rhythm rate about 110 no murmur. Chest wall nontender. Abdomen soft nontender. Moving all 4 extremities. 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 Left leg is about 4-5 strength right is 5 out of 5. She she does have some weakness on the left side compared to the right. Since her last stroke she is weaker on the left side than the right. Const Vital Signs: 04/26/23 17:15 04/26/23 17:20 04/26/23 17:32 Temperature 97.7 F L 97.7 F L Temperature Source Temporal Temporal Pulse Rate 118 H 118 H Respiratory Rate 20 H 20 H Blood Pressure 142/90 H 142/90 H Blood Pressure Mean 107 107 Pulse Ox 95 95 95 Oxygen Delivery Method Room Air Room Air Room Air 04/26/23 17:35 04/26/23 17:50 04/26/23 17:51 Temperature Temperature Source Pulse Rate 99 100 100 Respiratory Rate 19 H 14 14 Blood Pressure 143/92 H 108/73 108/73 Blood Pressure Mean 109 84 84 Pulse Ox 97 92 92 Oxygen Delivery Method Room Air Room Air Room Air Positive well nourished and well developed; Negative for obese, cachectic, contractures or unkempt General Appearance ED: well developed and NAD; Negative for unkempt, cachectic or contractures Nutritional Appearance: Negative for cachectic or obese HEENT Reports moist mucous membranes and dry mucous membranes; Denies TM's clear Negative for atraumatic or trauma Nose: Negative for other Tympanic Membrane ED: Negative for TM's clear Mouth ED: Yes dry mucous membranes Mouth: dry mucous membranes Eyes PERRL and EOMs intact bilaterally General Eye ED: Negative for pale conjunctiva Neck no lymphadenopathy, supple and no JVD General: Negative for tenderness Thyroid: Negative for other Chest Wall inspection of chest normal and palpation of chest normal Chest: Negative for other Resp normal respiratory effort and clear to auscultation bilaterally Effort and Inspection: Negative for retractions Auscultation: Negative for rales, rhonchi or wheezes Cardio no murmurs Rate: tachycardic Rhythm: regular rhythm GI normal to inspection, nondistended, normoactive bowel sounds, soft to palpation, non-tender, non-distended and no masses Inspection: Negative for abdominal distention Auscultation: normoactive bowel sounds Palpation: Negative for tender or guarding Bladder / Kidney Exam: No other Back/Spine no CVA tenderness General Back: Negative for CVA tenderness Cervical Spine: Negative for cervical spine tenderness Thoracic Spine / Upper Back: Negative for thoracic spinal tenderness Lumbar Spine / Lower Back: Negative for lumbar spinal tenderness Extremity normal to inspection General Extremety ED: Negative for deformity, edema or tenderness General Extremity: Negative for deformity or edema Neuro oriented x3, CN's II-XII intact bilaterally and No no sensory deficits noted Sensorium / Orientation: alert, oriented to person, oriented to place and oriented to time; Negative for orientation impaired, confused, lethargic or stuporous Speech: speech normal Motor Exam: strength abnormal; Negative for strength 5/5 throughout Psych mental status grossly normal Appearance: Negative for unkempt Attitude: No agitated Mood & Affect: Negative for depressed, anxious or tearful Skin no wounds General Skin Exam: Negative for jaundice Lesions: no lesions Rashes: no rashes Trauma: Negative for abrasion, laceration or puncture NIHSS NIHSS Initial: 1a Level of Consciousness: 0 1b LOC Questions (Score 2 if aphasic/stupor): 0 1c LOC Commands (Only score 1st attempt): 0 2 Best Gaze (If aphasic, use reflexive mvmts.): 0 3 Visual: 1 4 Facial Palsy: 0 5 Motor Arm Right (UN = amputation/fusion): 0 5 Motor Arm Left: 1 6 Motor Leg Right: 0 6 Motor Leg Left: 1 7 Limb ataxia (Only + if out of proportion): 1 8 Sensory (Aphasia/stupor=0 or 1, coma=2): 1 9 Best Language: 0 10 Dysarthria (mute, coma=2, intubated=UN): 0 11 Extinction and Inattention (only scored if +): 0 Total Score: 5 MDM MDM MDM Narrative Medical decision making narrative: 52-year-old female with diabetes, lupus and a stroke about 2 months ago. She has had chronic weakness in the left arm and leg since that time. States it is worse today and began around 1 PM. She is on aspirin but no other blood thinners. She will admit a stroke protocol. CT of her brain and CTA head neck. Patient doing well at 6:10 PM. Repeat exam unchanged. NIH approximately of 5. [facility] neurology evaluated the patient and she is not currently connected placed candidate. She will be admitted to the PCU of already spoke to the hospitalist. Patient will also be given 8 units of subcu insulin for her glucose of 437. History & Record Review Discussion w/independent historian: Patient and Family Additional record(s) reviewed:: Prior inpatient record, Prior outpatient record, Prior ED visit and Prior labs Lab Data Attestation: I reviewed the patient's lab results. Lab results narrative: Unremarkable. White count 8. H&H of 15 and 47. Platelets 206. PT/INR was 12 and 1. PTT of 24. Electrolytes show sodium 132 gap of 9 normal BUN and creatinine 13 and 0.8. Glucose is 437. Troponin is 7. Labs: Laboratory Results - last 24 hr 04/26/23 17:28 WBC 8.2 RBC 5.28 Hgb 15.9 H Hct 47.0 MCV 89.0 MCH 30.1 MCHC 33.8 RDW Std Deviation 39.2 RDW Coeff of Marc 12.0 Plt Count 206 MPV 11.1 Immature Gran % (Auto) 0.500 Neut % (Auto) 54.1 Lymph % (Auto) 32.2 [place] % (Auto) 8.9 Eos % (Auto) 3.4 Baso % (Auto) 0.9 Absolute Neuts (auto) 4.4 Absolute Lymphs (auto) 2.64 Nucleated RBC % 0 PT 12.7 INR 1.0 APTT 24.0 L Sodium 132 L Potassium 3.9 Chloride 98 Carbon Dioxide 25.0 Anion Gap 9 BUN 13 Creatinine 0.89 Estim Creat Clear Calc 67.29 Est GFR (MDRD) Af Amer 86 Est GFR (MDRD) Non-Af 71 BUN/Creatinine Ratio 14.7 Glucose 437 H Calcium 9.7 Troponin I High Sens 7 Radiography Chest X-Ray - ED: 1 View, Read by ED Physician, Heart, Lungs, Mediastinum, Bony Structures, No Acute Disease and Chronic Changes Diagnostic Testing: Clinical Impression(s) from Imaging Studies Brain CT 04/26/23 17:20 IMPRESSION: Negative Brain CT without contrast. Electronically Signed: Daron Cannon DO at 17:47 EDT , ADDENDUM: 04/26/23 1806 IMPRESSION: Negative Brain CT without contrast. N.B. : The above Results were Read Back by Daron Cannon DO to Rene Frederick MD, and understanding confirmed on 04/26/2023 17:59:27 (ET). Electronically Signed: Daron Cannon DO at 17:47 EDT , Head/Neck CTA 04/26/23 17:21 IMPRESSION: Negative CTA Carotid, and CTA Brain. Electronically Signed: Daron Cannon DO at 17:57 EDT , ADDENDUM: 04/26/23 1805 IMPRESSION: Negative CTA Carotid, and CTA Brain. N.B. : The above Results were Read Back by Daron Cannon DO to Rene Frederick and understanding confirmed on 04/26/2023 17:58:44 (ET). Electronically Signed: Daron Cannon DO at 17:57 EDT , Chest x-ray, portable, single view, interpreted by myself shows no acute abnormality. Atelectasis by lateral bases. No infiltrates. Normal cardiac silhouette mediastinum. Rhythm Strip Rhythm Strip: Sinus Rhythm Rate: 93 Ectopy: None EKG Initial EKG: Attestation: I personally reviewed and interpreted this EKG as follows: Interpretation: Sinus Rhythm and No Acute Injury Pattern Comments: Normal sinus rhythm rate of 93 no acute signs of CO or ischemia. No dysrhythmia. Prior EKG tracings: available for review Prior: Unchanged Discharge Plan Dx/Rx/DC Orders Clinical Impression: Hyperglycemia due to diabetes mellitus, History of lupus, History of stroke, History of diabetes mellitus, Stroke Disposition Disposition: Acute Care Hospital [facility]
[2023-04-26 17:36] LABS: Absolute Lymphocyte Count 2.64 X10^3/uL (0.83-4.51); Absolute Neutrophil Count 4.4 X10^3/uL (2.0-7.7); Basophil# 0.07 X10^3/uL; Basophil% 0.9 % (0-1); Eosinophil# 0.28 X10^3/uL; Eosinophils% 3.4 % (0-5); Hemoglobin 15.9 g/dL (12.0-15.0); Lymphocyte # 2.64 X10^3/ul (0.83-4.51); Lymphocyte % 32.2 % (19-41); Mean Corp Hgb Conc 33.8 g/dL (32-36); Mean Corpuscular Hgb 30.1 pg (27.0-32.0); Mean Platelet Vol. 11.1 fl (6.2-12.0); Monocyte# 0.73 X10^3/uL; Monocyte% 8.9 % (0-10); NRBC Flagged by Analyzer 0 % (0-5); Neutrophil # 4.44 X10^3/uL (2.7-7.7); Neutrophil % 54.1 % (47-70); Platelet Count 206 K/mm3 (150-450); RBC Distribution Width SD 39.2 fl (35.1-43.9); Red Blood Count 5.28 M/mm3 (4.2-5.4); White Blood Count 8.2 K/mm3 (4.4-11.0)
[2023-04-26 17:48] LABS: Prothrombin Time (Protime)PT. 12.7 SECONDS (11.7-14.9)
--- NOTE | 2023-04-26 17:50 | RAD_ITS ---
INDICATION: Neuro deficit, acute, stroke suspected EXAMINATION/TECHNIQUE: X-RAY - XR Chest 1 View COMPARISON: FINDINGS: LINES/DEVICES: None. LUNGS: No consolidation, edema or effusion. Bibasilar atelectasis. No pneumothorax. MEDIASTINUM AND CARDIOVASCULAR STRUCTURES: Cardiac silhouette not enlarged. Central airways and mediastinal contour are unremarkable. BONES AND SOFT TISSUES: Unremarkable. RAD/Chest 1 View IMPRESSION: Bilateral basilar atelectasis. Electronically Signed: Daron Cannon DO at 19:12 EDT ,
[2023-04-26 17:53] LABS: Anion Gap 9 (5-15); BUN 13 mg/dL (7-18); BUN/Creat Ratio 14.7 RATIO (10-20); Calcium,Total 9.7 mg/dL (8.5-10.1); Chloride 98 mmol/L (98-107); Creatinine, Serum 0.89 mg/dL (0.55-1.02); EST Glomerular Filtration Rate 71 mL/min (>60); Est Glom Filt Rate - Afr Amer 86 mL/min (>60); Estimated Creatinine Clearance 67.29 ml/min; Glucose 437 mg/dL (74-106); Potassium 3.9 mmol/L (3.5-5.1); Sodium Level 132 mmol/L (136-145); Troponin-I HS 7 pg/mL (3.0-54.0)
--- NOTE | 2023-04-26 18:17 | HP.PCM_ITS ---
[facility] - General General Date of Admission: 04/26/23 Date of Service: 04/26/23 Chief Complaint: left sided parasthesia, left arm and left leg weakness HPI Narrative DANY PETERSON, is a 52 F with a PMH as outlined who presents via the ED on 04/26/2023 with a complaint of left facial parasthesia, numbness and weakness. She had a stroke about 6 weeks ago and had residual lest sided weakness which was improving. She received tenecteplase during the previous admission. She said her last known well was at ~ 1pm today when she noticed she had some worsening weakness of the right side, with numbness and tingling. She thought it was due to tiredness and wnt to sleep; however she woke up with the symptoms still persistent, so she came in to the ED as she was concerned about a stroke. She had associated numbness and tingling on the left side of her face and body. Review of systems was otherwise negative. She has been compliant with her aspirin and high intensity statin prescribed, though she still continues to smoke. She denied any headache, dizziness, palpitations, nausea, vomiting or any other symptoms. Review of systems is otherwise negative. Vitals in the ED wre BP of 107/72, TX of 102, RR of 19 and she was saturating at 96% on room air. CBC was unremarkable. BMP showed glucose of 437, though anion gap was not elevated, with bicarb of 25. CT of the brain showed no acute intracranial pathology and CTA of hte head and neck showed no hemodynamically significant stenosis. [facility] telestroke neurologist reviewed patient in the ED and deemed that she wasnt a candidate for tenecteplase. Teleneurologist felt her due to stress induced weakness, but felt she should be admitted to rule out a stroke. She is being admitted to be managed for stroke like symptoms to rule out a stroke. PFSH Medical History Anxiety Anxiety and depression Asthma Bipolar disorder Chronic pain Depression Diabetes IDDM (insulin dependent diabetes mellitus) Lupus Migraines Seizures Smoker Tobacco use Home Medications insulin aspar prot-insulin aspart 100 unit/mL (70-30) subcutaneous pen (Novolog Mix 70-30FlexPen U-100) 20 unit subcut TID 01/18/22 [History Last Taken Unknown] pregabalin 50 mg capsule (Lyrica) 50 mg PO TID 01/18/22 [History Last Taken Unknown] quetiapine 50 mg tablet (Seroquel) 50 mg PO QHS 01/18/22 [History Last Taken Unknown] amitriptyline 25 mg tablet 25 - 50 mg PO QHS 03/05/23 [History Last Taken Unknown] lurasidone 40 mg tablet 40 mg PO DAILY bipolar 03/06/23 [History Last Taken 03/04/23 22:00] tramadol 50 mg tablet 50 mg PO Q8H lynphoma,lupus 03/06/23 [History Last Taken 03/05/23 06:00] aspirin 81 mg chewable tablet 81 mg PO BREAKFAST 90 days #90 tabs 03/07/23 [Rx Last Taken Unknown] atorvastatin 40 mg tablet 40 mg PO QHS 90 days #90 tabs 03/07/23 [Rx Last Taken Unknown] gabapentin 300 mg capsule 300 mg PO Q8H 04/26/23 [History Last Taken Unknown] insulin glargine 100 unit/mL (3 mL) subcutaneous pen (Lantus Solostar U-100 Insulin) 15 unit subcut QHS 04/26/23 [History Last Taken Unknown] Allergy/AdvReac Type Severity Reaction Status Date / Time coconut oil Allergy Rash Verified 04/26/23 17:19 venom-honey bee Allergy Unknown Verified 04/26/23 17:19 Family History Aunt Breast cancer Cancer vulvar cancer Grandmother Cancer vulvar Father CVA (cerebral vascular accident) Hypertension Other Heart disease Surgical History H/O: hysterectomy History of appendectomy History of lumpectomy Hx of cholecystectomy Hx of tonsillectomy Social History household members: spouse Smoking Status: Current every day smoker tobacco type: cigarettes alcohol intake: current details: social substance use type: marijuana caffeine: Yes what type of physical activity do you participate in: none seatbelt use: always do you feel safe at home: Yes 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 [employer] Constitutional Constitutional: Reports fatigue; Denies anorexia, chills, fever(s), malaise or weakness Eyes Eyes: Denies change in vision ENT HEENT: Denies dysphagia, headache(s), loss taste/smell or throat swelling Cardiovascular Cardiovascular: Denies chest pain, orthopnea, palpitations or paroxysmal nocturnal dyspnea Respiratory/Chest Respiratory/Chest: Denies cough, shortness of breath at rest or shortness of breath with exertion Gastrointestinal Gastrointestinal: Denies abdominal pain, diarrhea, nausea or vomiting Genitourinary Genitourinary: Denies dysuria Musculoskeletal Musculoskeletal: Denies back pain, joint pain, muscle weakness, neck pain or stiffness Neurologic Neurologic: Reports focal weakness, numbness, sensory deficit, tingling and weakness; Denies abnormal speech, confusion, dizziness, headache(s), lack of coordination, seizures or tremor(s) Psychiatric Psychiatric: Denies anxiety or depression Endocrine Endocrinology: Denies change in body appearance Hematologic/Lymphatic Hematologic/Lymphatic: Denies anemia Vital Signs Vital Signs Vital Signs: 04/26/23 17:15 04/26/23 17:20 04/26/23 17:32 Temperature 97.7 F L 97.7 F L Temperature Source Temporal Temporal Pulse Rate 118 H 118 H Respiratory Rate 20 H 20 H Blood Pressure 142/90 H 142/90 H Blood Pressure Mean 107 107 Pulse Ox 95 95 95 Oxygen Delivery Method Room Air Room Air Room Air 04/26/23 17:35 04/26/23 17:50 04/26/23 17:51 Temperature Temperature Source Pulse Rate 99 100 100 Respiratory Rate 19 H 14 14 Blood Pressure 143/92 H 108/73 108/73 Blood Pressure Mean 109 84 84 Pulse Ox 97 92 92 Oxygen Delivery Method Room Air Room Air Room Air Weight Weight: 178 lb 9.191 oz Body Mass Index (BMI) 29.7 Physical Exam Const alert, oriented x3 and no apparent distress General Appearance: cooperative and well developed HEENT normocephalic, head/scalp atraumatic, moist oral mucous membranes and oropharynx normal Eyes PERRL and EOMs intact bilaterally Neck no lymphadenopathy and supple Lymph Lymphatic: no lymphadenopathy noted and no lymphedema noted Resp normal respiratory effort, normal air movement and clear to auscultation bilat erally Cardio regular rate, regular rhythm, S1 normal heart sound, S2 normal heart sound and no murmurs GI normal to inspection, nondistended, normoactive bowel sounds, soft to palpation, non-tender and non-distended Extremity normal capillary refill, no clubbing, cyanosis or edema and no calf tenderness General Extremity: no tenderness to palpation of joints or extremities Skin General Skin Exam: no breakdown Neuro Neuro Narrative: has mildly reduced power in the LUE and LLE at 4-/5. Power in RUE and RLE was 5/5. Has mild tingling and numbness on left side of face, LUE and LLE. CN II-XII is intact bilaterally. No slurred speech. Coordination / Balance: [id number] test normal and [id number] test normal Speech: speech normal Psych thought process normal and cooperative Appearance: appropriate Results Lab / Micro Data 04/27/23 05:42 04/27/23 05:42 Labs: Laboratory Results - last 24 hr 04/26/23 17:28: WBC 8.2, RBC 5.28, Hgb 15.9 H, Hct 47.0, MCV 89.0, MCH 30.1, MCHC 33.8, RDW Std Deviation 39.2, RDW Coeff of Mrac 12.0, Plt Count 206, MPV 11.1, Immature Gran % (Auto) 0.500, Neut % (Auto) 54.1, Lymph % (Auto) 32.2, [place] % (Auto) 8.9, Eos % (Auto) 3.4, Baso % (Auto) 0.9, Absolute Neuts (auto) 4.4, Absolute Lymphs (auto) 2.64, Nucleated RBC % 0, PT 12.7, INR 1.0, APTT 24.0 L, Sodium 132 L, Potassium 3.9, Chloride 98, Carbon Dioxide 25.0, Anion Gap 9, BUN 13, Creatinine 0.89, Estim Creat Clear Calc 67.29, Est GFR (MDRD) Af Amer 8 6, Est GFR (MDRD) Non-Af 71, BUN/Creatinine Ratio 14.7, Glucose 437 H, Calcium 9.7, Troponin I High Sens 7 Rhythm Strip Rhythm Strip: Sinus Rhythm Rate: 93 Ectopy: None Radiology Impression Brain CT 04/26/23 17:20 IMPRESSION: Negative Brain CT without contrast. Electronically Signed: Daron Cannon DO at 17:47 EDT Reading Location ID and State: [facility] / [place] Tel [phone], Service support , ADDENDUM: 04/26/23 1806 IMPRESSION: Negative Brain CT without contrast. N.B. : The above Results were Read Back by Daron Cannon DO to Rene Frederick MD, and understanding confirmed on 04/26/2023 17:59:27 (ET). Electronically Signed: Daron Cannon DO at 17:47 EDT , Head/Neck CTA 04/26/23 17:21 IMPRESSION: Negative CTA Carotid, and CTA Brain. Electronically Signed: Daron Cannon DO at 17:57 EDT , ADDENDUM: 04/26/23 1805 IMPRESSION: Negative CTA Carotid, and CTA Brain. N.B. : The above Results were Read Back by Daron Cannon DO to Rene Frederick and understanding confirmed on 04/26/2023 17:58:44 (ET). Electronically Signed: Daron Cannon DO at 17:57 EDT , Assessment & Plan Assessment/Plan (1) Stroke-like symptoms: PLAN: Plan #Stroke like symptoms * admitted via the ED with a complaint of worsening weakness, numbness and tingling in her left upper and lower extremities as well as left side of face * has a history of stroke in February 2023, and was placed on aspirin and statin, which she says she has been compliant with. She does continue to smoke. * CT of the brain showed no acute intracranial pathology * CTA head and neck showed no evidence of hemodynamically significant stenosis * NIHSS is 3 * admit to PCU * continue aspirin and plavix. Check bedside swallow eval, and if she passes, to start on 1800 calorie diet * monitor NIHSS. * for MRI of the brain tomorrow * [facility] telestroke reviewed her and felt her symptoms were due to stress induced weakness, but to get an MRI to rule out a stroke * she just had an echo on March 05 2023 which showed EF of 55-60%, with systolic function and mild tricuspid regurgitation and negative bubble study. Will therefore hold off on echo for now as she had one not so long ago * PT/OT consulted * patient counselled that she will likely need to go with a 30 day event monitor on discharge to evaluate for any arrhythmias * #SLE * says she doesn't take any medications for active treatment of the lupus, and is only on amitryptiline and tramadol for pain * follow up with rheumatology on outpatient basis * #Hyperglycemia in a known type 1 diabetic * sodium was 437 on admission. No elevated anion gap * she hasnt yet taken her lantus today as she takes it in the evening usually * resume lantus 15 units QHS * ISS. Accuchecks ACHS * #TYpe 1 diabetes mellitus with chronic neuropathy * on gabapentin * on lantus and ISS as above * last A1C in February 2023 was 10.1 #NIcotine dependence: * says she still smokes. * COunseled urgently to quit in light of her stroke and new onset stroke like symptoms. * She has cut down to 2 cigarettes daily. * Nicotine patch 14mg daily * * #Anxiety and depression with suspected bipolar disorder * on Lurasidone and seroquel, prazosin and lamictal * DVT prophylaxis: SCDs Code status: full code Charges/Coding Visit Charges Inpatient E&M: 38827 Init Hosp L2
[2023-04-26] MEDS: Insulin Lispro 100 UNIT/ML INSULN.PEN 8 UNIT SC (18:40)
[2023-04-26 19:06] LABS: Bedside Glucose 383 mg/dL (74-106)
[2023-04-26] MEDS: Gabapentin 300 MG Capsule PO (21:27)
[2023-04-26] MEDS: Amitriptyline 25 MG Tablet PO (21:27)
[2023-04-26] MEDS: QUEtiapine 25 MG Tablet 50 MG PO (21:27)
[2023-04-26] MEDS: traMADol 50 MG Tablet PO (21:27)
[2023-04-26] MEDS: Atorvastatin Calcium 40 MG Tablet PO (21:27)
[2023-04-26] MEDS: Pregabalin 50 MG Capsule PO (21:27)
[2023-04-26] MEDS: Insulin Glargine-YFGN 100 UNIT/ML Pen 15 UNIT SC (21:28)
[2023-04-26] MEDS: Insulin Lispro 100 UNIT/ML INSULN.PEN SC (21:33)
[2023-04-27] VITALS (7 sets, daily range): BP systolic 103–113; BP diastolic 61–85; PULSE 95–106; RESP 16–18; TEMP 36.6–37.1; O2SAT 94–96; BMI 26.5
[2023-04-27 00:26] LABS: Bedside Glucose 390 mg/dL (74-106)
[2023-04-27] MEDS: Pregabalin 50 MG Capsule PO ×3 (05:52→21:34)
[2023-04-27] MEDS: Gabapentin 300 MG Capsule PO ×3 (05:53→21:34)
[2023-04-27 05:54] LABS: Absolute Lymphocyte Count 2.55 X10^3/uL (0.83-4.51); Absolute Neutrophil Count 3.3 X10^3/uL (2.0-7.7); Basophil# 0.06 X10^3/uL; Basophil% 0.9 % (0-1); Eosinophil# 0.34 X10^3/uL; Eosinophils% 4.9 % (0-5); Hematocrit 43.4 % (37-47); Hemoglobin 14.5 g/dL (12.0-15.0); Lymphocyte # 2.55 X10^3/ul (0.83-4.51); Lymphocyte % 36.7 % (19-41); Mean Corp Hgb Conc 33.4 g/dL (32-36); Mean Corpuscular Volume 89.9 fL (81-99); Monocyte# 0.68 X10^3/uL; Monocyte% 9.8 % (0-10); NRBC Flagged by Analyzer 0 % (0-5); Neutrophil # 3.29 X10^3/uL (2.7-7.7); Neutrophil % 47.3 % (47-70); Platelet Count 202 K/mm3 (150-450); RBC Distribution Width SD 39.6 fl (35.1-43.9); Red Blood Count 4.83 M/mm3 (4.2-5.4)
[2023-04-27 06:31] LABS: Anion Gap 10 (5-15); BUN 13 mg/dL (7-18); BUN/Creat Ratio 16.7 RATIO (10-20); Calcium,Total 8.6 mg/dL (8.5-10.1); Chloride 101 mmol/L (98-107); Cholesterol 204 mg/dL (200); Creatinine, Serum 0.78 mg/dL (0.55-1.02); EST Glomerular Filtration Rate 83 mL/min (>60); Est Glom Filt Rate - Afr Amer 100 mL/min (>60); Estimated Creatinine Clearance 86.08 ml/min; Glucose 329 mg/dL (74-106); High Density Lipoprotein 49 mg/dL; Potassium 3.8 mmol/L (3.5-5.1); Sodium Level 134 mmol/L (136-145); Triglycerides 272 mg/dL; Very Low Density Lipoprotein 54 mg/dL (5-40)
--- NOTE | 2023-04-27 07:00 | MRI_ITS ---
STUDY: MRI BRAIN WITHOUT CONTRAST REASON FOR EXAM: Female, 52 years old. Stroke like symptoms TECHNIQUE: Multiplanar multisequence imaging of the brain was performed without the administration of intravenous contrast. COMPARISON: Noncontrast head CT 04/26/2023, brain MRI 03/07/2023 FINDINGS: The ventricles, cisterns, and sulci are within normal limits for patients age. There is no restricted diffusion to suggest acute ischemia or infarction. No succeptibility artifict to suggest intracranial hemorrhage or mineralization. Major intracranial signal voids are preserved. There is no midline shift, mass effect, or extra axial fluid collections are seen. No CP angle or IAC mass is seen. The orbits are unremarkable. The sella turcica and craniovertebral junction are within normal limits. Mild bilateral maxillary sinus mucoperiosteal thickening. The mastoid air cells are clear. MRI/Brain without Contrast IMPRESSION: No intracranial hemorrhage, acute infarct, or space occupying lesion seen on this noncontrast MRI of the brain. Electronically Signed: Lincoln Shanks MD at 17:21 EDT ,
[2023-04-27] MEDS: Aspirin 81 MG TAB.CHEW PO (08:00)
[2023-04-27] MEDS: Insulin Human 75/25 Kwickpen 20 UNIT SC ×3 (08:01→17:06)
[2023-04-27] MEDS: Insulin Lispro 100 UNIT/ML INSULN.PEN SC ×4 (08:01→21:34)
[2023-04-27 08:26] LABS: Bedside Glucose 321 mg/dL (74-106)
--- NOTE | 2023-04-27 10:09 | PN.HOSP_ITS ---
Subjective Subjective Deficits are improving, her vision is improving she has some tingling in her extremities on the left side but no weakness Objective Data Objective Data Vital Signs: Vital Signs Temp Pulse Resp BP Pulse Ox O2 Del Method 97.8 F 95 18 106/71 95 Room Air 04/27/23 10:00 04/27/23 10:00 04/27/23 10:00 04/27/23 10:00 04/27/23 10:00 04/27/23 10:00 Oxygen Delivery Method Room Air Weight: 174 lb 9.698 oz Body Mass Index (BMI) 26.5 Intake & Output: Intake and Output for Last 24 Hours 04/26/23 04/27/23 04/28/23 03:59 03:59 03:59 Intake Total 480 / 480 360 / 360 Balance 480 / 480 360 / 360 Lab / Micro Data 04/27/23 05:42 04/27/23 05:42 Labs: Laboratory Results - last 24 hr 04/26/23 17:28: WBC 8.2, RBC 5.28, Hgb 15.9 H, Hct 47.0, MCV 89.0, MCH 30.1, MCHC 33.8, RDW Std Deviation 39.2, RDW Coeff of Marc 12.0, Plt Count 206, MPV 11.1, Immature Gran % (Auto) 0.500, Neut % (Auto) 54.1, Lymph % (Auto) 32.2, [place] % (Auto) 8.9, Eos % (Auto) 3.4, Baso % (Auto) 0.9, Absolute Neuts (auto) 4.4, Absolute Lymphs (auto) 2.64, Nucleated RBC % 0, PT 12.7, INR 1.0, APTT 24.0 L, Sodium 132 L, Potassium 3.9, Chloride 98, Carbon Dioxide 25.0, Anion Gap 9, BUN 13, Creatinine 0.89, Estim Creat Clear Calc 67.29, Est GFR (MDRD) Af Amer 86, Est GFR (MDRD) Non-Af 71, BUN/Creatinine Ratio 14.7, Glucose 437 H, Calcium 9.7, Troponin I High Sens 7 04/26/23 17:41: POC Glucose 383 H 04/26/23 21:24: POC Glucose 390 H 04/27/23 05:42: WBC 7.0, RBC 4.83, Hgb 14.5, Hct 43.4, MCV 89.9, MCH 30.0, MCHC 33.4, RDW Std Deviation 39.6, RDW Coeff of Marc 12.0, Plt Count 202, MPV 11.0, Immature Gran % (Auto) 0.400, Neut % (Auto) 47.3, Lymph % (Auto) 36.7, [place] % (Auto) 9.8, Eos % (Auto) 4.9, Baso % (Auto) 0.9, Absolute Neuts (auto) 3.3, Absolute Lymphs (auto) 2.55, Nucleated RBC % 0, Sodium 134 L, Potassium 3.8, Chloride 101, Carbon Dioxide 23.0, Anion Gap 10, BUN 13, Creatinine 0.78, Estim Creat Clear Calc 86.08, Est GFR (MDRD) Af Amer 100, Est GFR (MDRD) Non-Af 83, BUN/Creatinine Ratio 16.7, Glucose 329 H, Calcium 8.6, Triglycerides 272 H, Cholesterol 204 H, LDL Cholesterol 101, VLDL Cholesterol 54 H, HDL Cholesterol 49 04/27/23 07:58: POC Glucose 321 H Radiography Diagnostic Testing: Radiology Impression Brain CT 04/26/23 17:20 IMPRESSION: Negative Brain CT without contrast. Electronically Signed: Daron Cannon DO at 17:47 EDT , ADDENDUM: 04/26/23 1806 IMPRESSION: Negative Brain CT without contrast. N.B. : The above Results were Read Back by Daron Cannon DO to Rene Frederick MD, and understanding confirmed on 04/26/2023 17:59:27 (ET). Electronically Signed: Daron Cannon DO at 17:47 EDT , Head/Neck CTA 04/26/23 17:21 IMPRESSION: Negative CTA Carotid, and CTA Brain. Electronically Signed: Daron Cannon DO at 17:57 EDT , ADDENDUM: 04/26/23 1805 IMPRESSION: Negative CTA Carotid, and CTA Brain. N.B. : The above Results were Read Back by Daron Cnanon DO to Rene Frederick and understanding confirmed on 04/26/2023 17:58:44 (ET). Electronically Signed: Daron Cannon DO at 17:57 EDT , Chest X-Ray 04/26/23 17:50 IMPRESSION: Bilateral basilar atelectasis. Electronically Signed: Daron Cannon DO at 19:12 EDT , Rhythm Strip Rhythm Strip: Sinus Rhythm Rate: 93 Ectopy: None Physical Exam Narrative General: Alert, Oriented x3, Cooperative, No apparent distress HEENT: Atraumatic, PERRLA, EOMI, Normocephalic Oral: Moist Mucosa Neck: Supple, No JVD Lungs: Diminished, Normal air movement, No rhonchi, No wheeze, No rales Cardiovascular: Regular rate, Regular Rhythm, Normal S1, Normal S2, No murmurs Abdomen: Soft, Non Tender, Non-Distended, No Hepato-splenomegaly Extremities: No edema, Capillary Refill Less than 3 Seconds Skin: No rashes, No breakdown Musculoskeletal: No Tenderness to Palpation of Joints or Extremities Neurological: Cranial nerves II-XII grossly intact, Motor Exam 5/5 strength throughout, Sensory exam intact to light touch and pain Psych/Mental Status: Normal Affect, Appropriate Assessment & Plan Assessment/Plan (1) Stroke-like symptoms: PLAN: Plan 1. Strokelike symptoms with a history of a previous stroke inpatient in early February?tobacco abuse ? Continue with stroke protocol ? MRI tomorrow ? [facility] neurology felt that her symptoms were related to stress however still recommended a MRI ? She just had an echo back in February, with an EF of 55 to 60%, will not repeat ? PT/OT ? Discussed cessation ? Continue with the nicotine patch 2. DM1 with neuropathy ? Continue with insulin sliding scale insulin ? Accu-Cheks ACHS ? We will monitor make adjustments as necessary ? Continue with gabapentin 3. Anxiety/depression ? There are some concern for bipolar disorder ? Continue with her home medications ? Stable 4. SLE ? Does not take any medications other than amitriptyline and tramadol for pain ? Follow-up with rheumatology as an outpatient DVT SCDs Charges/Coding Visit Charges Inpatient E&M: 76757 Subs Hosp L2
[2023-04-27] MEDS: LURASIDONE HCL 40 MG TABLET PO (10:29)
[2023-04-27 12:23] LABS: Bedside Glucose 421 mg/dL (74-106)
[2023-04-27 17:31] LABS: Bedside Glucose 443 mg/dL (74-106)
[2023-04-27] MEDS: traMADol 50 MG Tablet PO (20:11)
[2023-04-27] MEDS: Amitriptyline 25 MG Tablet PO (21:34)
[2023-04-27] MEDS: QUEtiapine 25 MG Tablet 50 MG PO (21:34)
[2023-04-27] MEDS: Atorvastatin Calcium 40 MG Tablet PO (21:34)
[2023-04-27] MEDS: Insulin Glargine-YFGN 100 UNIT/ML Pen 15 UNIT SC (21:35)
[2023-04-28] VITALS (8 sets, daily range): BP systolic 103–110; BP diastolic 62–70; PULSE 74–99; RESP 16–18; TEMP 36.6–36.9; O2SAT 91–99
[2023-04-28] MEDS: Pregabalin 50 MG Capsule PO ×2 (05:39→13:06)
[2023-04-28] MEDS: Gabapentin 300 MG Capsule PO ×2 (05:39→13:06)
[2023-04-28] MEDS: traMADol 50 MG Tablet PO ×2 (05:39→15:56)
[2023-04-28 06:09] LABS: Absolute Lymphocyte Count 2.08 X10^3/uL (0.83-4.51); Absolute Neutrophil Count 2.8 X10^3/uL (2.0-7.7); Basophil# 0.06 X10^3/uL; Eosinophil# 0.26 X10^3/uL; Eosinophils% 4.4 % (0-5); Hemoglobin 13.2 g/dL (12.0-15.0); Lymphocyte # 2.08 X10^3/ul (0.83-4.51); Lymphocyte % 35.4 % (19-41); Mean Corp Hgb Conc 33.8 g/dL (32-36); Mean Corpuscular Hgb 30.8 pg (27.0-32.0); Mean Corpuscular Volume 90.9 fL (81-99); Mean Platelet Vol. 11.5 fl (6.2-12.0); Monocyte# 0.66 X10^3/uL; Monocyte% 11.2 % (0-10); NRBC Flagged by Analyzer 0 % (0-5); Neutrophil # 2.79 X10^3/uL (2.7-7.7); Neutrophil % 47.7 % (47-70); Platelet Count 179 K/mm3 (150-450); RBC Distribution Width SD 40.1 fl (35.1-43.9); Red Blood Count 4.29 M/mm3 (4.2-5.4); White Blood Count 5.9 K/mm3 (4.4-11.0)
[2023-04-28 07:00] LABS: Anion Gap 9 (5-15); BUN 16 mg/dL (7-18); BUN/Creat Ratio 20.3 RATIO (10-20); Calcium,Total 8.1 mg/dL (8.5-10.1); Chloride 103 mmol/L (98-107); Creatinine, Serum 0.79 mg/dL (0.55-1.02); EST Glomerular Filtration Rate 82 mL/min (>60); Est Glom Filt Rate - Afr Amer 99 mL/min (>60); Estimated Creatinine Clearance 84.99 ml/min; Glucose 287 mg/dL (74-106); Potassium 3.5 mmol/L (3.5-5.1); Sodium Level 135 mmol/L (136-145)
[2023-04-28] MEDS: Aspirin 81 MG TAB.CHEW PO (08:37)
[2023-04-28] MEDS: LURASIDONE HCL 40 MG TABLET PO (08:38)
[2023-04-28] MEDS: Insulin Lispro 100 UNIT/ML INSULN.PEN SC ×2 (08:40→12:07)
[2023-04-28] MEDS: Insulin Human 75/25 Kwickpen 20 UNIT SC ×2 (08:42→12:07)
--- NOTE | 2023-04-28 10:31 | CASEMGMT ---
Social Work Pt completed PHQ-9 w/SW. Pt scored a 4, many of her symptoms(little energy, sleeping too much, trouble concentrating, moving slowly) seem more related to what is going on w/pt medically. Pt does have a history of depression however, so often has little interest in doing things and feels down--but no more so than usual. Pt denies wanting to harm herself. Pt is already in counseling and sees a psychiatrist at [facility]. Pt declined any additional resources at this time. HOUSTON Minor
--- NOTE | 2023-04-28 12:54 | CASEMGMT ---
Met with patient to complete BROWN form. BROWN form explained to patietn who voiced understanding and signed form. Original form placed in pt?s chart and copy provided to patient. Denice Hunter, Discharge Planning Asst.
[2023-04-28] MEDS: LORazepam 2 MG/ML Syringe IV (13:48)
--- NOTE | 2023-04-28 15:04 | PCM.PN.HOSP ---
Subjective Subjective Doing well, no issues overnight. Symptoms have resolved Objective Data Objective Data Vital Signs: Vital Signs Temp Pulse Resp BP Pulse Ox O2 Del Method 98 F 99 18 107/62 91 Room Air 04/28/23 13:35 04/28/23 14:34 04/28/23 14:34 04/28/23 14:34 04/28/23 14:34 04/28/23 14:34 Oxygen Delivery Method Room Air Weight: 174 lb 9.698 oz Body Mass Index (BMI) 26.5 Intake & Output: Intake and Output for Last 24 Hours 04/27/23 04/28/23 04/29/23 03:59 03:59 03:59 Intake Total 480 / 480 2140 / 2140 950 / 950 Balance 480 / 480 2140 / 2140 950 / 950 Lab / Micro Data 04/28/23 04:50 04/28/23 04:50 Labs: Laboratory Results - last 24 hr 04/27/23 17:03: POC Glucose 443 H 04/28/23 04:50: WBC 5.9, RBC 4.29, Hgb 13.2, Hct 39.0, MCV 90.9, MCH 30.8, MCHC 33.8, RDW Std Deviation 40.1, RDW Coeff of Marc 12.0, Plt Count 179, MPV 11.5, Immature Gran % (Auto) 0.300, Neut % (Auto) 47.7, Lymph % (Auto) 35.4, [place] % (Auto) 11.2 H, Eos % (Auto) 4.4, Baso % (Auto) 1.0, Absolute Neuts (auto) 2.8, Absolute Lymphs (auto) 2.08, Nucleated RBC % 0, Sodium 135 L, Potassium 3.5, Chloride 103, Carbon Dioxide 23.0, Anion Gap 9, BUN 16, Creatinine 0.79, Estim Creat Clear Calc 84.99, Est GFR (MDRD) Af Amer 99, Est GFR (MDRD) Non-Af 82, BUN/Creatinine Ratio 20.3 H, Glucose 287 H, Calcium 8.1 L Rhythm Strip Rhythm Strip: Sinus Rhythm Rate: 93 Ectopy: None Physical Exam Narrative General: Alert, Oriented x3, Cooperative, No apparent distress HEENT: Atraumatic, PERRLA, EOMI, Normocephalic Oral: Moist Mucosa Neck: Supple, No JVD Lungs: Diminished, Normal air movement, No rhonchi, No wheeze, No rales Cardiovascular: Regular rate, Regular Rhythm, Normal S1, Normal S2, No murmurs Abdomen: Soft, Non Tender, Non-Distended, No Hepato-splenomegaly Extremities: No edema, Capillary Refill Less than 3 Seconds Skin: No rashes, No breakdown Musculoskeletal: No Tenderness to Palpation of Joints or Extremities Neurological: Cranial nerves II-XII grossly intact, Motor Exam 5/5 strength throughout, Sensory exam intact to light touch and pain Psych/Mental Status: Normal Affect, Appropriate Assessment & Plan Assessment/Plan (1) Stroke-like symptoms: PLAN: Plan 1. Strokelike symptoms with a history of a previous stroke inpatient in early February?tobacco abuse ? Continue with stroke protocol ? MRI pending ? [facility] neurology felt that her symptoms were related to stress however still recommended a MRI ? She just had an echo back in February, with an EF of 55 to 60%, will not repeat ? PT/OT ? Discussed cessation ? Continue with the nicotine patch 2. DM1 with neuropathy ? Continue with insulin sliding scale insulin ? Accu-Cheks ACHS ? We will monitor make adjustments as necessary ? Continue with gabapentin 3. Anxiety/depression ? There are some concern for bipolar disorder ? Continue with her home medications ? Stable 4. SLE ? Does not take any medications other than amitriptyline and tramadol for pain ? Follow-up with rheumatology as an outpatient DVT SCDs Charges/Coding Visit Charges Inpatient E&M: 55215 Subs Hosp L2
--- NOTE | 2023-04-28 15:05 | DCINST_ITS ---
Discharge Instructions Diet Discharge Diet: Low fat / Low cholesterol and Carb Control Diet Activity Discharge Activity: Return to Normal Activity Dressing / Incision Call your doctor if you observe: Fever of 101 or Higher, Shortness of breath, Dizziness, Fainting spells, Swelling in the ankles, Chest pain and Increased palpitations (irregular heartbeat) Follow Up Care Test Results: Test results from this visit will be discussed in further detail at your follow- up appointment, if applicable. Discharge Plan Admission Admit Date/Time: 04/26/23 18:19 Attending Provider: Pedro Berrios Primary Care Provider: Kristina Mcclure Consulting Providers: Karen Armando Discharge Orders/Prescriptions Prescriptions: Continued pregabalin [Lyrica] 50 mg Capsule 50 mg PO TID quetiapine [Seroquel] 50 mg Tablet 50 mg PO QHS insulin asp prt-insulin aspart [Novolog Mix 70-30FlexPen U-100] 100 unit/mL (70-30) Insulin Pen 20 unit SUBCUT TID amitriptyline 25 mg tablet 25 - 50 mg PO QHS lurasidone 40 mg tablet 40 mg PO DAILY tramadol 50 mg tablet 50 mg PO Q8H aspirin 81 mg Tablet,Chewable 81 mg PO BREAKFAST 90 Days Qty: 90 0RF atorvastatin 40 mg tablet 40 mg PO QHS 90 Days Qty: 90 0RF gabapentin 300 mg capsule 300 mg PO Q8H Patient Comments: TAKE 1 CAPSULE BY MOUTH THREE TIMES DAILY insulin glargine [Lantus Solostar U-100 Insulin] 100 unit/mL (3 mL) insulin pen 15 unit SUBCUT QHS Patient Comments: INJECT 15 UNITS UNDER THE SKIN ONCE DAILY AT BEDTIME. Referrals / Follow Up: Kristina Mcclure DO [Primary Care Provider] - Within 1 Week Disposition Disposition (needs filled in before D/C Order can be placed): Home, Self Care
--- NOTE | 2023-04-28 15:08 | PCM.DC.SUM ---
Providers Date of Admission: 04/26/23 Primary Care Physician: Dr. Kristina Mcclure, DO Reason For Visit: STROKE LIKE SYMPTOMS Diagnosis Discharge Diagnosis (1) Stroke-like symptoms: Status: Acute Code(s): R29.90 - Unspecified symptoms and signs involving the nervous system Plan 1. Strokelike symptoms with a history of a previous stroke inpatient in early February?tobacco abuse ? Continue with stroke protocol ? MRI pending ? [facility] neurology felt that her symptoms were related to stress however still recommended a MRI ? She just had an echo back in February, with an EF of 55 to 60%, will not repeat ? PT/OT ? Discussed cessation ? Continue with the nicotine patch 2. DM1 with neuropathy ? Continue with insulin sliding scale insulin ? Accu-Cheks ACHS ? We will monitor make adjustments as necessary ? Continue with gabapentin 3. Anxiety/depression ? There are some concern for bipolar disorder ? Continue with her home medications ? Stable 4. SLE ? Does not take any medications other than amitriptyline and tramadol for pain ? Follow-up with rheumatology as an outpatient DVT SCDs Medications at Discharge Home Medications insulin aspar prot-insulin aspart 100 unit/mL (70-30) subcutaneous pen (Novolog Mix 70-30FlexPen U-100) 20 unit subcut TID 01/18/22 pregabalin 50 mg capsule (Lyrica) 50 mg PO TID 01/18/22 quetiapine 50 mg tablet (Seroquel) 50 mg PO QHS 01/18/22 amitriptyline 25 mg tablet 25 - 50 mg PO QHS 03/05/23 lurasidone 40 mg tablet 40 mg PO DAILY bipolar 03/06/23 tramadol 50 mg tablet 50 mg PO Q8H lynphoma,lupus 03/06/23 aspirin 81 mg chewable tablet 81 mg PO BREAKFAST 90 days #90 tabs 03/07/23 atorvastatin 40 mg tablet 40 mg PO QHS 90 days #90 tabs 03/07/23 gabapentin 300 mg capsule 300 mg PO Q8H 04/26/23 insulin glargine 100 unit/mL (3 mL) subcutaneous pen (Lantus Solostar U-100 Insulin) 15 unit subcut QHS 04/26/23 Hospital Course Operations None Procedures None Summary of Care Provided Minutes Spent on Discharge: 38 Hospital Course: Per HPI: DANY PETERSON, is a 52 F with a PMH as outlined who presents via the ED on 04/26/2023 with a complaint of left facial parasthesia, numbness and weakness. She had a stroke about 6 weeks ago and had residual lest sided weakness which was improving. She received tenecteplase during the previous admission. She said her last known well was at ~ 1pm today when she noticed she had some worsening weakness of the right side, with numbness and tingling. She thought it was due to tiredness and wnt to sleep; however she woke up with the symptoms still persistent, so she came in to the ED as she was concerned about a stroke. She had associated numbness and tingling on the left side of her face and body. Review of systems was otherwise negative. She has been compliant with her aspirin and high intensity statin prescribed, though she still continues to smoke. She denied any headache, dizziness, palpitations, nausea, vomiting or any other symptoms. Review of systems is otherwise negative. Vitals in the ED wre BP of 107/72, DE of 102, RR of 19 and she was saturating at 96% on room air. CBC was unremarkable. BMP showed glucose of 437, though anion gap was not elevated, with bicarb of 25. CT of the brain showed no acute intracranial pathology and CTA of hte head and neck showed no hemodynamically significant stenosis. [facility] telestroke neurologist reviewed patient in the ED and deemed that she wasnt a candidate for tenecteplase. Teleneurologist felt her due to stress induced weakness, but felt she should be admitted to rule out a stroke. She is being admitted to be managed for stroke like symptoms to rule out a stroke. Hospital course: 1. Strokelike symptoms?52-year-old female presents to the hospital with strokelike symptoms. She had had a strokelike symptoms in February and at that time had presented within the window and therefore was given tenecteplase imaging at that time was negative for stroke after the intervention. Echocardiogram demonstrated an EF of 55 to 60% at that time so we did not repeat. MRI on this admission was also negative and initially on admission neurology felt that this could be stress-induced as she is having some medication changes for her bipolar disorder and her anxiety and depression. She says that she has a significant amount of anxiety so possibly could be conversion disorder. I do recommend outpatient monitoring given that the MRI is negative would hold off on any further outpatient evaluation given the concern for psychiatric manifestations. I discussed with her the plan for discharge today she expressed understanding of the risk benefits of going home and would like to go home today. 2. Type 1 diabetes with neuropathy, anxiety, depression, bipolar disorder, PTSD, SLE all chronic medical conditions which complicate her care. Her home medications were continued where appropriate Weight / BMI Weight Weight: 174 lb 9.698 oz Body Mass Index (BMI) 26.5 ABG / Lab / Microbiology Data 04/28/23 04:50 04/28/23 04:50 Laboratory: Laboratory Results - last 24 hr 04/27/23 17:03: POC Glucose 443 H 04/28/23 04:50: WBC 5.9, RBC 4.29, Hgb 13.2, Hct 39.0, MCV 90.9, MCH 30.8, MCHC 33.8, RDW Std Deviation 40.1, RDW Coeff of Marc 12.0, Plt Count 179, MPV 11.5, Immature Gran % (Auto) 0.300, Neut % (Auto) 47.7, Lymph % (Auto) 35.4, [place] % (Auto) 11.2 H, Eos % (Auto) 4.4, Baso % (Auto) 1.0, Absolute Neuts (auto) 2.8, Absolute Lymphs (auto) 2.08, Nucleated RBC % 0, Sodium 135 L, Potassium 3.5, Chloride 103, Carbon Dioxide 23.0, Anion Gap 9, BUN 16, Creatinine 0.79, Estim Creat Clear Calc 84.99, Est GFR (MDRD) Af Amer 99, Est GFR (MDRD) Non-Af 82, BUN/Creatinine Ratio 20.3 H, Glucose 287 H, Calcium 8.1 L D/C Instructions Discharge Diet: Low fat / Low cholesterol and Carb Control Diet Call your doctor if you observe: Fever of 101 or Higher, Shortness of breath, Dizziness, Fainting spells, Swelling in the ankles, Chest pain and Increased palpitations (irregular heartbeat) Meaningful Use Info Meaningful Use Diagnoses (Choose all that apply): None applicable Discharge Plan Admission Admit Date/Time: 04/26/23 18:19 Attending Provider: Pedro Berrios Primary Care Provider: Oberhauser,Kristina Consulting Providers: Karen Armando Discharge Orders/Prescriptions Prescriptions: Continued pregabalin [Lyrica] 50 mg Capsule 50 mg PO TID quetiapine [Seroquel] 50 mg Tablet 50 mg PO QHS insulin asp prt-insulin aspart [Novolog Mix 70-30FlexPen U-100] 100 unit/mL (70-30) Insulin Pen 20 unit SUBCUT TID amitriptyline 25 mg tablet 25 - 50 mg PO QHS lurasidone 40 mg tablet 40 mg PO DAILY tramadol 50 mg tablet 50 mg PO Q8H aspirin 81 mg Tablet,Chewable 81 mg PO BREAKFAST 90 Days Qty: 90 0RF atorvastatin 40 mg tablet 40 mg PO QHS 90 Days Qty: 90 0RF gabapentin 300 mg capsule 300 mg PO Q8H Patient Comments: TAKE 1 CAPSULE BY MOUTH THREE TIMES DAILY insulin glargine [Lantus Solostar U-100 Insulin] 100 unit/mL (3 mL) insulin pen 15 unit SUBCUT QHS Patient Comments: INJECT 15 UNITS UNDER THE SKIN ONCE DAILY AT BEDTIME. Referrals / Follow Up: Kristina Mcclure DO [Primary Care Provider] - Within 1 Week Disposition Disposition (needs filled in before D/C Order can be placed): Home, Self Care Charges/Coding Visit Charges Inpatient E&M: 16767 Disch Hosp >30min
--- NOTE | 2023-04-28 15:23 | CASEMGMT ---
Patient has order for discharge. ST recommending outpatient ST, script received. DEBORAH LAND in to patient's room to discuss discharge needs. RN SHANDA provided script for outpatient ST with [facility] information, patient states she will schedule on her own. Patient had no further questions or concerns at this time.
== END 2023-04-28 15:08 | disposition home or self-care (01) ==
LOC: ED 18:15 → PCU 18:29
PROVIDERS: Admitting Provider Student in an Organized Health Care Education/Training Program; Emergency Provider Emergency Medicine; PCP Internal Medicine; Visit Provider Family Medicine
DX: R29.90 Unspecified symptoms and signs involving the nervous system (principal); I69.354 Hemiplegia and hemiparesis following cerebral infarction affecting left non-dominant side; M32.9 Systemic lupus erythematosus, unspecified; F31.9 Bipolar disorder, unspecified; E10.65 Type 1 diabetes mellitus with hyperglycemia; E10.40 Type 1 diabetes mellitus with diabetic neuropathy, unspecified; Z79.4 Long term (current) use of insulin; F41.9 Anxiety disorder, unspecified; F43.10 Post-traumatic stress disorder, unspecified; F17.210 Nicotine dependence, cigarettes, uncomplicated; J45.909 Unspecified asthma, uncomplicated; Z79.899 Other long term (current) drug therapy; Z79.82 Long term (current) use of aspirin; F45.8 Other somatoform disorders; R13.10 Dysphagia, unspecified; R47.89 Other speech disturbances; R20.0 Anesthesia of skin; R20.2 Paresthesia of skin; R19.7 Diarrhea, unspecified; R29.705 NIHSS score 5
CPT/HCPCS: 36415; 70450; 70496; 70498; 70551; 71045; 80048; 80061; 82962; 84484; 85025; 85610; 85730; 92523; 92610; 93005; 94762; 96374; 99221; 99285; Q9967; A4216; G0378

== ENCOUNTER 2023-11-18 20:16 | Emergency (ER) | payer MEDICARE, SELFPAY ==
[2023-11-18 20:17] VITALS: BP 129/70; PULSE 90; RESP 16; TEMP 35.8; O2SAT 98; BMI 26.7
[2023-11-18 21:10] LABS: Bedside Glucose 394 mg/dL (74-106)
--- NOTE | 2023-11-18 21:44 | EKG12_ITS ---
Test Reason : HYPERGLYCEMIA Blood Pressure : / mmHG Vent. Rate : 075 BPM Atrial Rate : 075 BPM P-R Int : 160 ms QRS Dur : 080 ms QT Int : 396 ms P-R-T Axes : 031 -20 012 degrees QTc Int : 442 ms Normal sinus rhythm Normal ECG Confirmed by Joseph Duvall ([id number]), editor greeting card CASSANDRA DRUMMOND ([id number]) on 11/19/2023 12:56:45 PM Referred By: Confirmed By:Joseph Duvall
[2023-11-18 22:13] LABS: Absolute Neutrophil Count 4.3 X10^3/uL (2.0-7.7); Basophil# 0.08 X10^3/uL; Eosinophil# 0.54 X10^3/uL; Eosinophils% 6.7 % (0-5); Hematocrit 45.6 % (37-47); Hemoglobin 15.4 g/dL (12.0-15.0); Lymphocyte % 31.1 % (19-41); Mean Corp Hgb Conc 33.8 g/dL (32-36); Mean Corpuscular Hgb 29.7 pg (27.0-32.0); Mean Platelet Vol. 11.9 fl (6.2-12.0); Monocyte% 7.5 % (0-10); NRBC Flagged by Analyzer 0 % (0-5); Neutrophil # 4.29 X10^3/uL (2.7-7.7); Neutrophil % 53.2 % (47-70); Platelet Count 217 K/mm3 (150-450); RBC Distribution Width CV 12.4 % (11.6-14.6); Red Blood Count 5.18 M/mm3 (4.2-5.4); White Blood Count 8.1 K/mm3 (4.4-11.0)
[2023-11-18 22:16] VITALS: BP 109/57; PULSE 77; RESP 16; O2SAT 95
[2023-11-18 22:20] LABS: Bacteria 0 SEEN /hpf (None Seen); Mucous, Urine 0 SEEN /hpf (<or=2+); White Blood Cells 0 SEEN /hpf (0-5)
[2023-11-18 22:21] LABS: Color, Urine Yellow (Yellow); Glucose, Dipstick 1000 mg/dl (Normal); Ketone-Dipstick Negative (Negative); Leukocyte Esterase-Dipstick Negative /ul (Negative); Nitrite-Dipstick Negative (Negative); Occult Blood-Urine 10 /ul (Negative); Protein-Dipstick Negative (Negative); Urine Bilirubin Dipstick Negative (Negative); Urine Clarity Clear (Clear); Urine Urobilinogen Normal (Normal); Urine pH 6.5 (5.0 - 8.0)
--- NOTE | 2023-11-18 22:21 | EX.ED.DYSGE1 ---
HPI History of Present Illness Chief Complaint: Hyperglycemia Narrative Narrative: 53-year-old female presenting with hyperglycemia. She states she has polydipsia polyuria. She states she sees an primary care physician who manages her diabetes. She has been doing Lantus 30 5 at night and sliding scale insulin 70/30 which has not been changing her blood sugars. The lowest she has had is just under 400. She states that her glucometer does not read over 400. Patient states that she has had blood sugars have been elevated for the last couple weeks because she is in a lupus flare right now. She not been on any steroids or anything. Patient states she was in her shower today and started to feel lightheaded and fell but she did not injure herself. She also reports that she has been having cold chills and sweating through her close at times. [facility] Medical History Bipolar disorder Depression Anxiety Chronic pain Smoker Seizures Tobacco use IDDM (insulin dependent diabetes mellitus) Anxiety and depression Diabetes Lupus Asthma Migraines Home Medications ?Medication ?Instructions ?Recorded ?Last Taken ?Type insulin aspar prot-insulin aspart 20 unit subcut TID 01/18/22 Unknown History 100 unit/mL (70-30) subcutaneous pen (Novolog Mix 70-30FlexPen U-100) pregabalin 50 mg capsule (Lyrica) 50 mg PO TID 01/18/22 Unknown History quetiapine 50 mg tablet (Seroquel) 50 mg PO QHS 01/18/22 Unknown History amitriptyline 25 mg tablet 25 - 50 mg PO QHS 03/05/23 Unknown History lurasidone 40 mg tablet 40 mg PO DAILY bipolar 03/06/23 03/04/23 22:00 History tramadol 50 mg tablet 50 mg PO Q8H lynphoma,lupus 03/06/23 03/05/23 06:00 History aspirin 81 mg chewable tablet 81 mg PO BREAKFAST 90 days #90 tabs 03/07/23 Unknown Rx atorvastatin 40 mg tablet 40 mg PO QHS 90 days #90 tabs 03/07/23 Unknown Rx gabapentin 300 mg capsule 300 mg PO Q8H 04/26/23 Unknown History insulin glargine 100 unit/mL (3 15 unit subcut QHS 04/26/23 Unknown History mL) subcutaneous pen (Lantus Solostar U-100 Insulin) Allergy/AdvReac Type Severity Reaction Status Date / Time coconut oil Allergy Rash Verified 11/18/23 20:17 venom-honey bee Allergy Unknown Verified 11/18/23 20:17 Family History Aunt Breast cancer Cancer vulvar cancer Grandmother Cancer vulvar Father CVA (cerebral vascular accident) Hypertension Other Heart disease Surgical History History of lumpectomy History of appendectomy Hx of tonsillectomy H/O: hysterectomy Hx of cholecystectomy Social History household members: spouse Smoking Status: Current every day smoker tobacco type: cigarettes alcohol intake: current details: social substance use type: marijuana caffeine: Yes what type of physical activity do you participate in: none seatbelt use: always do you feel safe at home: Yes 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 [employer] Constitutional Constitutional ED: Reports sweats; Denies chills Eyes Eyes: Denies blurry vision or change in vision ENT ENT ED: Denies ear pain or sore throat Cardiovascular Cardiovascular: Reports other Details: Lightheadedness ; Denies chest pain, palpitations or racing heartbeat Respiratory/Chest Respiratory/Chest: Denies cough, dyspnea or sputum Gastrointestinal Gastrointestinal: Denies abdominal pain, constipation, diarrhea, nausea or vomiting Genitourinary Genitourinary ED: Denies dysuria, hematuria or urinary frequency Musculoskeletal Musculoskeletal: Denies arthralgias, myalgias or neck pain Integumentary Denies abscess, Abrasions or rash Neurologic Neurologic: Denies headache(s), paresthesias or weakness Psychiatric Psychiatric: Denies anxiety, depression, suicidal ideation or suicidal thoughts Endocrine Endocrinology: Denies polydipsia or polyuria EXAM Physical Exam Const Vital Signs: 11/18/23 20:17 11/18/23 22:16 11/18/23 22:59 Temperature 96.4 F L Temperature Source Temporal Pulse Rate 90 77 Respiratory Rate 16 16 Respiratory Effort Normal Blood Pressure 129/70 H 109/57 L Blood Pressure Mean 89 74 Pulse Ox 98 95 Oxygen Delivery Method Room Air 11/19/23 00:49 11/19/23 00:50 Temperature 96.4 F L Temperature Source Pulse Rate 67 67 Respiratory Rate 14 14 Respiratory Effort Blood Pressure 118/74 118/74 Blood Pressure Mean 88 88 Pulse Ox 98 98 Oxygen Delivery Method Positive well nourished General Appearance ED: [facility] Reports moist mucous membranes Eyes PERRL and EOMs intact bilaterally Chest Wall inspection of chest normal Resp normal respiratory effort and clear to auscultation bilaterally Auscultation: Negative for rales, rhonchi or wheezes Cardio regular rate and regular rhythm GI normal to inspection, nondistended, normoactive bowel sounds Extremity normal to inspection Neuro oriented x3 and CN's II-XII intact bilaterally Sensorium / Orientation: alert Motor Exam: strength 5/5 throughout MDM MDM MDM Narrative Medical decision making narrative: Patient presented with increased blood sugars. She states that she is having a lupus flare and this is sometimes driving her sugars upward. She is on Lantus 35 units at night and sliding scale insulin. She states that she felt lightheaded tonight and fell because of it. She is concerned she might be in DKA. Differential includes DKA, hyperglycemia, dehydration, anemia, electrolyte abnormalities. CBC was obtained to assess white blood cell count, hemoglobin, platelets. CMP to assess liver function, renal function, electrolytes, glucose, anion gap. Acetone to assess for ketones. Urinalysis assess for UTI. She is given a liter normal saline. CBC shows normal white blood cell count at 8.1. Hemoglobin 15.4. Platelets are normal at 217. Renal function and electrolytes are normal with exception of a sodium 133. Glucose is 396. Strain injury. EKG on my interpretation shows sinus rhythm at 75 beats minute without sign of ischemic change or dysrhythmia. High-sensitivity troponin 6. After IV fluids her blood blood sugar is closer to 300 and she feels better. Her acetone is negative. Urinalysis negative. Vital signs are stable. At this point the patient feels good enough to go home and I recommended that she follow-up with her primary care physician for change of her meds. She is amenable to this. Discharged stable condition. Impression: 1. Hyperglycemia 2. Lightheadedness 3. Near syncope Lab Data Attestation: I reviewed the patient's lab results. Labs: Laboratory Results - last 24 hr 11/18/23 11/18/23 11/18/23 20:51 21:23 22:05 WBC 8.1 RBC 5.18 Hgb 15.4 H Hct 45.6 MCV 88.0 MCH 29.7 MCHC 33.8 RDW Std Deviation 40.0 RDW Coeff of Marc 12.4 Plt Count 217 MPV 11.9 Immature Gran % (Auto) 0.500 Neut % (Auto) 53.2 Lymph % (Auto) 31.1 [place] % (Auto) 7.5 Eos % (Auto) 6.7 H Baso % (Auto) 1.0 Absolute Neuts (auto) 4.3 Absolute Lymphs (auto) 2.50 Nucleated RBC % 0 Sodium 133 L Potassium 4.2 Chloride 101 Carbon Dioxide 22.0 Anion Gap 10 BUN 9 Creatinine 0.86 Estim Creat Clear Calc 84.89 Est GFR (MDRD) Af Amer 89 Est GFR (MDRD) Non-Af 73 BUN/Creatinine Ratio 10.4 Glucose 396 H Calcium 8.9 Total Bilirubin 0.30 AST 13 L ALT 26 Alkaline Phosphatase 90 Troponin I High Sens 6 Total Protein 7.2 Albumin 3.5 Globulin 3.7 Albumin/Globulin Ratio 0.9 Urine Color Urine Clarity Urine pH Ur Specific [place] Urine Protein Urine Glucose (UA) Urine Ketones Urine Occult Blood Urine Nitrite Urine Bilirubin Urine Urobilinogen Ur Leukocyte Esterase Urine RBC Urine WBC Ur Squamous Epith Cells Urine Bacteria Urine Mucus Acetone Level NEGATIVE POC Glucose 394 H 11/18/23 11/18/23 22:10 23:44 WBC RBC Hgb Hct MCV MCH MCHC RDW Std Deviation RDW Coeff of Marc Plt Count MPV Immature Gran % (Auto) Neut % (Auto) Lymph % (Auto) [place] % (Auto) Eos % (Auto) Baso % (Auto) Absolute Neuts (auto) Absolute Lymphs (auto) Nucleated RBC % Sodium 134 L Potassium 3.7 Chloride 104 Carbon Dioxide 22.0 Anion Gap 8 BUN 8 Creatinine 0.63 Estim Creat Clear Calc 115.88 Est GFR (MDRD) Af Amer 127 Est GFR (MDRD) Non-Af 105 BUN/Creatinine Ratio 12.6 Glucose 302 H Calcium 8.4 L Total Bilirubin AST ALT Alkaline Phosphatase Troponin I High Sens Total Protein Albumin Globulin Albumin/Globulin Ratio Urine Color Yellow Urine Clarity Clear Urine pH 6.5 Ur Specific [place] 1.010 Urine Protein Negative Urine Glucose (UA) 1000 H Urine Ketones Negative Urine Occult Blood 10 H Urine Nitrite Negative Urine Bilirubin Negative Urine Urobilinogen Normal Ur Leukocyte Esterase Negative Urine RBC 0-5 SEEN Urine WBC 0 SEEN Ur Squamous Epith Cells 0-5 SEEN Urine Bacteria 0 SEEN Urine Mucus 0 SEEN Acetone Level POC Glucose Discharge Plan Triage Chief Complaint: Hyperglycemia ED Provider: Cr Rojas Dx/Rx/DC Orders Instructions: ED Diabetic Hyperglycemia Prescriptions: No Action pregabalin [Lyrica] 50 mg Capsule 50 mg PO TID quetiapine [Seroquel] 50 mg Tablet 50 mg PO QHS insulin asp prt-insulin aspart [Novolog Mix 70-30FlexPen U-100] 100 unit/mL (70-30) Insulin Pen 20 unit SUBCUT TID amitriptyline 25 mg tablet 25 - 50 mg PO QHS lurasidone 40 mg tablet 40 mg PO DAILY tramadol 50 mg tablet 50 mg PO Q8H aspirin 81 mg Tablet,Chewable 81 mg PO BREAKFAST 90 Days Qty: 90 0RF atorvastatin 40 mg tablet 40 mg PO QHS 90 Days Qty: 90 0RF gabapentin 300 mg capsule 300 mg PO Q8H Patient Comments: TAKE 1 CAPSULE BY MOUTH THREE TIMES DAILY insulin glargine [Lantus Solostar U-100 Insulin] 100 unit/mL (3 mL) insulin pen 15 unit SUBCUT QHS Patient Comments: INJECT 15 UNITS UNDER THE SKIN ONCE DAILY AT BEDTIME. Primary Care Provider: Kristina Mcclure Referrals: Kristina Mcclure DO [Primary Care Provider] - Print Language: Bulgarian Disposition Disposition: Home, Self Care Discharge Date/Time: 11/19/23 00:50
[2023-11-18 22:31] LABS: ALB/GLOB Ratio 0.9 RATIO (0.9-2.4); AST(SGOT) 13 U/L (15-37); Alanine Aminotransfer ALT/SGPT 26 U/L (13-56); Albumin, Serum 3.5 g/dL (3.2-5.0); Alkaline Phosphatase 90 U/L (45-117); Anion Gap 10 (5-15); BUN 9 mg/dL (7-18); BUN/Creat Ratio 10.4 RATIO (10-20); Calcium,Total 8.9 mg/dL (8.5-10.1); Chloride 101 mmol/L (98-107); Creatinine, Serum 0.86 mg/dL (0.55-1.02); EST Glomerular Filtration Rate 73 mL/min (>60); Est Glom Filt Rate - Afr Amer 89 mL/min (>60); Estimated Creatinine Clearance 84.89 ml/min; Globulin 3.7 g/dL (2.2-4.2); Glucose 396 mg/dL (74-106); Potassium 4.2 mmol/L (3.5-5.1); Protein, Total 7.2 g/dL (6.4-8.2); Sodium Level 133 mmol/L (136-145); Troponin-I HS 6 pg/mL (3.0-54.0)
[2023-11-18 22:39] LABS: Red Blood Cells-Urine 0-5 SEEN /hpf (0-5); Squamous Epithelial Cells - UA 0-5 SEEN /hpf (5-10)
[2023-11-18] MEDS: Acetaminophen 500 MG Tablet 1000 MG PO (23:26)
[2023-11-19 00:05] LABS: Anion Gap 8 (5-15); BUN 8 mg/dL (7-18); BUN/Creat Ratio 12.6 RATIO (10-20); Calcium,Total 8.4 mg/dL (8.5-10.1); Chloride 104 mmol/L (98-107); Creatinine, Serum 0.63 mg/dL (0.55-1.02); EST Glomerular Filtration Rate 105 mL/min (>60); Est Glom Filt Rate - Afr Amer 127 mL/min (>60); Estimated Creatinine Clearance 115.88 ml/min; Glucose 302 mg/dL (74-106); Potassium 3.7 mmol/L (3.5-5.1); Sodium Level 134 mmol/L (136-145)
[2023-11-19 00:49] VITALS: BP 118/74; PULSE 67; RESP 14; O2SAT 98
[2023-11-19 00:50] VITALS: BP 118/74; PULSE 67; RESP 14; TEMP 35.8; O2SAT 98
== END 2023-11-19 00:50 | disposition home or self-care (01) ==
PROVIDERS: Emergency Provider Student in an Organized Health Care Education/Training Program; PCP Internal Medicine; Visit Provider Student in an Organized Health Care Education/Training Program
DX: E11.65 Type 2 diabetes mellitus with hyperglycemia (principal); F31.9 Bipolar disorder, unspecified; R42 Dizziness and giddiness; R55 Syncope and collapse; F17.210 Nicotine dependence, cigarettes, uncomplicated; F12.90 Cannabis use, unspecified, uncomplicated; J45.909 Unspecified asthma, uncomplicated
CPT/HCPCS: 80048; 80053; 81001; 82009; 82962; 84484; 85025; 93005; 99283; J7030; A4216

== ENCOUNTER 2023-12-23 17:18 | Emergency (ER) | payer MEDICARE, SELFPAY ==
[2023-12-23 17:19] VITALS: BP 136/63; PULSE 111; RESP 18; TEMP 36.6; O2SAT 93; BMI 26.7
[2023-12-23 17:20] VITALS: BP 136/63; PULSE 111; RESP 18; TEMP 36.6; O2SAT 93
--- NOTE | 2023-12-23 18:00 | RAD_ITS ---
STUDY: X-RAY - UNILATERAL RIBS ( LEFT ) WITH CHEST REASON FOR EXAM: Female, 53 years old. Rib Pain TECHNIQUE - RIBS: 4 view(s) of the ribs. TECHNIQUE - CHEST: AP portable COMPARISON: None. FINDINGS - RIBS: Normal visualized ribs without a demonstrated fracture. FINDINGS - CHEST: There is diminished inspiratory effort and minor discoid atelectasis or scarring in both lower lobes slightly more pronounced on the left.. There is no demonstrated pleural abnormality. Normal size heart. Normal mediastinum and ruth ann. Normal visualized pulmonary arteries. Normal visualized aortic arch and descending thoracic aorta. Normal visualized thoracic spine. Normal visualized ribs, clavicles, and shoulders. There is no demonstrated abnormality of the visualized soft tissue structures of the upper abdomen. RAD/Ribs Uni Min 3V w/PA Chest IMPRESSION: RIBS: Normal x-ray examination of the ribs. CHEST: Minor discoid atelectasis or scarring in both lower lobes.. Electronically Signed: Moshe Theodore MD at 18:48 EDT Reading Location ID and State: [facility] / [place] Tel , Service support ,
[2023-12-23 18:43] LABS: Bacteria 0 SEEN /hpf (None Seen); Mucous, Urine 0 SEEN /hpf (<or=2+); Red Blood Cells-Urine 0 SEEN /hpf (0-5); Squamous Epithelial Cells - UA 0 SEEN /hpf (5-10); White Blood Cells 0 SEEN /hpf (0-5)
[2023-12-23 18:51] LABS: Color, Urine Yellow (Yellow); Glucose, Dipstick 1000 mg/dl (Normal); Ketone-Dipstick Negative (Negative); Leukocyte Esterase-Dipstick Negative /ul (Negative); Nitrite-Dipstick Negative (Negative); Occult Blood-Urine Negative /ul (Negative); Protein-Dipstick Negative (Negative); Urine Bilirubin Dipstick Negative (Negative); Urine Clarity Clear (Clear); Urine Urobilinogen Normal (Normal)
[2023-12-23 19:33] VITALS: BP 140/99; PULSE 95; RESP 17; TEMP 36.8; O2SAT 99
[2023-12-23 20:00] VITALS: BP 145/116; PULSE 97; RESP 18; TEMP 36.9; O2SAT 95
--- NOTE | 2023-12-23 20:07 | EX.ED.DYSGE1 ---
HPI History of Present Illness Chief Complaint: Complaint Detail of Chief Complaint: Patient presents with rib cage pain after bending over this past weekend. Informant: patient Onset/Context/Timing Onset: Days Context: Sudden Onset Timing: Continuous Quality: Pain left anterior lower rib cage Location: Left lower anterior rib cage Current Severity: Mild Maximum Severity: Severe Worsened by: Movement, deep breathing, palpation Relieved by: Nothing, patient took tramadol with no effect. Associated Symptoms Associated Symptoms: None Narrative Narrative: Patient is a 53-year-old woman. She states she has problems with her ribs occasionally. She bent over the past weekend. She felt a pop. She has had pain since. She denies nausea, vomit diarrhea. Denies dysuria, frequency, urgency or hematuria. She denies cough or shortness of breath. She has not noted a rash. Prior similar symptoms: Yes Recent Illness/Hospitalization: No PFSH PFS Medical History Bipolar disorder Depression Anxiety Chronic pain Smoker Seizures Tobacco use IDDM (insulin dependent diabetes mellitus) Anxiety and depression Diabetes Lupus Asthma Migraines Home Medications ?Medication ?Instructions ?Recorded ?Last Taken ?Type insulin aspar prot-insulin aspart 20 unit subcut TID 01/18/22 Unknown History 100 unit/mL (70-30) subcutaneous pen (Novolog Mix 70-30FlexPen U-100) pregabalin 50 mg capsule (Lyrica) 50 mg PO TID 01/18/22 Unknown History quetiapine 50 mg tablet (Seroquel) 50 mg PO QHS 01/18/22 Unknown History amitriptyline 25 mg tablet 25 - 50 mg PO QHS 03/05/23 Unknown History lurasidone 40 mg tablet 40 mg PO DAILY bipolar 03/06/23 03/04/23 22:00 History tramadol 50 mg tablet 50 mg PO Q8H lynphoma,lupus 03/06/23 03/05/23 06:00 History aspirin 81 mg chewable tablet 81 mg PO BREAKFAST 90 days #90 tabs 03/07/23 Unknown Rx atorvastatin 40 mg tablet 40 mg PO QHS 90 days #90 tabs 03/07/23 Unknown Rx gabapentin 300 mg capsule 300 mg PO Q8H 04/26/23 Unknown History insulin glargine 100 unit/mL (3 15 unit subcut QHS 04/26/23 Unknown History mL) subcutaneous pen (Lantus Solostar U-100 Insulin) hydrocodone-acetaminophen 5-325mg 1 tab PO Q6H PRN PRN Pain 3 days 12/23/23 Unknown Rx 5mg-325mg #10 TABLETS Allergy/AdvReac Type Severity Reaction Status Date / Time coconut oil Allergy Rash Verified 12/23/23 17:20 venom-honey bee Allergy Unknown Verified 12/23/23 17:20 Family History Aunt Breast cancer Cancer vulvar cancer Grandmother Cancer vulvar Father CVA (cerebral vascular accident) Hypertension Other Heart disease Surgical History History of lumpectomy History of appendectomy Hx of tonsillectomy H/O: hysterectomy Hx of cholecystectomy Social History household members: spouse Smoking Status: Current every day smoker tobacco type: cigarettes alcohol intake: current details: social substance use type: marijuana caffeine: Yes what type of physical activity do you participate in: none seatbelt use: always do you feel safe at home: Yes 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 Constitutional Constitutional ED: Denies chills, fever(s), subjective, sweats or weight loss Cardiovascular Cardiovascular: Reports chest pain; Denies palpitations or racing heartbeat Respiratory/Chest Respiratory/Chest: Denies cough, dyspnea or dyspnea on exertion Gastrointestinal Gastrointestinal: Denies abdominal pain, nausea or vomiting Genitourinary Genitourinary ED: Denies dysuria, hematuria or urinary frequency Musculoskeletal Musculoskeletal: Denies arthralgias, back pain, myalgias or neck pain Integumentary Denies rash Psychiatric Psychiatric: Reports depression Hematologic/Lymphatic Hematologic/Lymphatic: Denies easy bleeding or easy bruising EXAM Physical Exam Const Vital Signs: 12/23/23 17:19 12/23/23 17:20 12/23/23 19:33 Temperature 98 F 98 F 98.2 F Temperature Source Temporal Temporal Oral Pulse Rate 111 H 111 H 95 Respiratory Rate 18 18 17 Blood Pressure 136/63 H 136/63 H 140/99 H Blood Pressure Mean 87 87 112 Pulse Ox 93 93 99 Oxygen Delivery Method Room Air Room Air Room Air 12/23/23 20:00 Temperature 98.4 F Temperature Source Oral Pulse Rate 97 Respiratory Rate 18 Blood Pressure 145/116 H Blood Pressure Mean 125 Pulse Ox 95 Oxygen Delivery Method Room Air Positive well nourished and well developed Constitutional Narrative: Blood pressure slightly elevated. Patient initially was tachycardic. General Appearance ED: well developed; Negative for pallor HEENT HEENT Narrative: Head is atraumatic normocephalic. Ears normal. Nares patent. Mucosa moist. Eyes PERRL and EOMs intact bilaterally General Eye ED: Negative for pale conjunctiva or scleral icterus Neck no lymphadenopathy and supple Chest Wall inspection of chest normal and palpation of chest normal Resp normal respiratory effort and clear to auscultation bilaterally Resp Narrative: There is pain to palpation midclavicular line over lower ribs on the left to the posterior clavicular line. There is no rash noted. She has hypersensitivity to light touch. There is no crepitus or subcutaneous air noted. Cardio regular rate, regular rhythm, S1 normal heart sound, S2 normal heart sound and no murmurs GI normal to inspection, nondistended, normoactive bowel sounds, non-tender, non-distended and no masses; Negative for hepatosplenomegaly Extremity normal to inspection Neuro oriented x3 and CN's II-XII intact bilaterally Sensorium / Orientation: alert Psych mental status grossly normal Skin no rashes or lesions noted, no wounds and skin turgor normal General Skin Exam: elasticity normal; Negative for jaundice or pallor MDM MDM MDM Narrative Medical decision making narrative: Muscle strain, exacerbation of chronic pain, pneumothorax, doubt splenic megaly or injury to spleen. Atypical presentation for ureterolithiasis. Will obtain x-ray and UA. These were ordered per nurse protocol. Patient was medicated with morphine. Lab Data Attestation: I reviewed the patient's lab results. Lab results narrative: UA is negative. Labs: Laboratory Results - last 24 hr 12/23/23 18:12 Urine Color Yellow Urine Clarity Clear Urine pH 6.0 Ur Specific [place] 1.010 Urine Protein Negative Urine Glucose (UA) 1000 H Urine Ketones Negative Urine Occult Blood Negative Urine Nitrite Negative Urine Bilirubin Negative Urine Urobilinogen Normal Ur Leukocyte Esterase Negative Urine RBC 0 SEEN Urine WBC 0 SEEN Ur Squamous Epith Cells 0 SEEN Urine Bacteria 0 SEEN Urine Mucus 0 SEEN Radiography Chest X-Ray - ED: Read by ED Physician (A total of 5 views was obtained.), Normal, Heart, Lungs (Patient has discoid atelectasis noted right and left lower lobe. There is no evidence of fractured rib, pneumothorax or hemothorax.), Mediastinum, Bony Structures and No Acute Disease Diagnostic Testing: Clinical Impression(s) from Imaging Studies Ribs w/Chest X-Ray 12/23/23 18:00 IMPRESSION: RIBS: Normal x-ray examination of the ribs. CHEST: Minor discoid atelectasis or scarring in both lower lobes.. Electronically Signed: Moshe Theodore MD at 18:48 EDT , Treatment and Re-Evaluation :: Patient was reassessed at 2048. She feels markedly better. She was discharged with short course of opiate analgesia. Discharge Plan Triage Chief Complaint: Complaint ED Provider: Delta Candelaria Dx/Rx/DC Orders Clinical Impression: Chest wall muscle strain, History of lupus, History of stroke, History of diabetes mellitus Instructions: ED Chest Wall Strain Prescriptions: New hydrocodone-acetaminophen 5-325 mg tablet 1 tab PO Q6H PRN PRN (Reason: Pain) 3 Days Qty: 10 0RF No Action pregabalin [Lyrica] 50 mg Capsule 50 mg PO TID quetiapine [Seroquel] 50 mg Tablet 50 mg PO QHS insulin asp prt-insulin aspart [Novolog Mix 70-30FlexPen U-100] 100 unit/mL (70-30) Insulin Pen 20 unit SUBCUT TID amitriptyline 25 mg tablet 25 - 50 mg PO QHS lurasidone 40 mg tablet 40 mg PO DAILY tramadol 50 mg tablet 50 mg PO Q8H aspirin 81 mg Tablet,Chewable 81 mg PO BREAKFAST 90 Days Qty: 90 0RF atorvastatin 40 mg tablet 40 mg PO QHS 90 Days Qty: 90 0RF gabapentin 300 mg capsule 300 mg PO Q8H Patient Comments: TAKE 1 CAPSULE BY MOUTH THREE TIMES DAILY insulin glargine [Lantus Solostar U-100 Insulin] 100 unit/mL (3 mL) insulin pen 15 unit SUBCUT QHS Patient Comments: INJECT 15 UNITS UNDER THE SKIN ONCE DAILY AT BEDTIME. Primary Care Provider: Kristina Mcclure Referrals: Kristina Mcclure DO [Primary Care Provider] - Print Language: Bulgarian Disposition Disposition: Home, Self Care
[2023-12-23] MEDS: Morphine 4 MG/ML Syringe IM (20:14)
[2023-12-23 21:08] VITALS: BP 140/90; PULSE 88; RESP 18; TEMP 36.2; O2SAT 99
== END 2023-12-23 21:09 | disposition home or self-care (01) ==
PROVIDERS: Emergency Provider Emergency Medicine; PCP Internal Medicine; Visit Provider Emergency Medicine
DX: S29.011A Strain of muscle and tendon of front wall of thorax, initial encounter (principal); F31.9 Bipolar disorder, unspecified; Z79.4 Long term (current) use of insulin; E11.9 Type 2 diabetes mellitus without complications; Z86.73 Personal history of transient ischemic attack (TIA), and cerebral infarction without residual deficits; X58.XXXA Exposure to other specified factors, initial encounter; Z79.899 Other long term (current) drug therapy; Z90.49 Acquired absence of other specified parts of digestive tract; Z90.710 Acquired absence of both cervix and uterus; F17.210 Nicotine dependence, cigarettes, uncomplicated
CPT/HCPCS: 71101; 81001; 96372; 99282

== ENCOUNTER 2024-02-11 07:17 | Emergency (ER) | payer MEDICARE, SELFPAY ==
[2024-02-11 07:17] VITALS: BP 140/78; PULSE 105; RESP 19; TEMP 35.6; O2SAT 98; BMI 26.9
--- NOTE | 2024-02-11 07:49 | ED.VIS.FEGU ---
HPI HPI - Female History of Present Illness Chief Complaint: Flank Pain PFSH PFSH Medical History Bipolar disorder Depression Anxiety Chronic pain Smoker Seizures Tobacco use IDDM (insulin dependent diabetes mellitus) Anxiety and depression Diabetes Lupus Asthma Migraines Home Medications ?Medication ?Instructions ?Recorded ?Last Taken ?Type insulin aspar prot-insulin aspart 20 unit subcut TID 01/18/22 Unknown History 100 unit/mL (70-30) subcutaneous pen (Novolog Mix 70-30FlexPen U-100) pregabalin 50 mg capsule (Lyrica) 50 mg PO TID 01/18/22 Unknown History quetiapine 50 mg tablet (Seroquel) 50 mg PO QHS 01/18/22 Unknown History amitriptyline 25 mg tablet 25 - 50 mg PO QHS 03/05/23 Unknown History lurasidone 40 mg tablet 40 mg PO DAILY bipolar 03/06/23 03/04/23 22:00 History tramadol 50 mg tablet 50 mg PO Q8H lynphoma,lupus 03/06/23 03/05/23 06:00 History aspirin 81 mg chewable tablet 81 mg PO BREAKFAST 90 days #90 tabs 03/07/23 Unknown Rx atorvastatin 40 mg tablet 40 mg PO QHS 90 days #90 tabs 03/07/23 Unknown Rx gabapentin 300 mg capsule 300 mg PO Q8H 04/26/23 Unknown History insulin glargine 100 unit/mL (3 15 unit subcut QHS 04/26/23 Unknown History mL) subcutaneous pen (Lantus Solostar U-100 Insulin) hydrocodone-acetaminophen 5-325mg 1 tab PO Q6H PRN PRN Pain 3 days 12/23/23 Unknown Rx 5mg-325mg #10 TABLETS ondansetron 4 mg disintegrating 4 mg PO Q8H PRN PRN Nausea #10 tabs 02/11/24 Unknown Rx tablet oxycodone 5 mg tablet 5 mg PO Q6H PRN pain 3 days #12 02/11/24 Unknown Rx tabs Allergy/AdvReac Type Severity Reaction Status Date / Time coconut oil Allergy Rash Verified 02/11/24 07:18 venom-honey bee Allergy Unknown Verified 02/11/24 07:18 Family History Aunt Breast cancer Cancer vulvar cancer Grandmother Cancer vulvar Father CVA (cerebral vascular accident) Hypertension Other Heart disease Surgical History History of lumpectomy History of appendectomy Hx of tonsillectomy H/O: hysterectomy Hx of cholecystectomy Social History household members: spouse Smoking Status: Current every day smoker tobacco type: cigarettes alcohol intake: current details: social substance use type: marijuana caffeine: Yes what type of physical activity do you participate in: none seatbelt use: always do you feel safe at home: Yes 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 Notes history of kidney stones. Pain began suddenly overnight. Pain is severe. No urinary symptoms. No fever. No chest pain or shortness of breath. No family or personal history of connective tissue diseases, or aneurysms. REVIEW OF SYSTEMS: Pertinent positives: Right flank pain Pertinent negatives: Frequency, urgency, hematuria PHYSICAL EXAM: Nursing triage notes reviewed, Vital signs reviewed Constitutional: please see mdm HENT: MMM Eyes: Pupils equal round and reactive to light, Extraocular muscles intact Neck: No stridor, no JVD, full neck ROM Lungs: Clear to auscultation, No wheezing or rales. No increased work of breathing, no conversational dyspnea, no accessory muscle use, no nasal flaring. No respiratory distress noted Heart: Regular rate and rhythm, No murmurs, No rubs and No gallops, 2+ distal pulses (radial, femoral, posterior tibial) in all extremities Abdomen: Soft, there is no tenderness, rigidity, rebound or guarding, no obvious peritoneal signs, no palpable pulsatile abdominal masses, no auscultated abdominal bruit : Right CVA tenderness Extremities: No edema Neuro: No focal neurological deficits, cranial nerves II through XII intact, 5/5 strength in all extremities. Intact sensation to light touch in all extremities, 2+ reflexes bilateral patella tendons. Normal gait. No ataxia. Skin: No rash or lesions noted MEDICAL DECISION MAKING: Chief Complaint: Right flank pain External records reviewed: Reviewed prior imaging: Reviewed CT scan from 2016 which showed a 4 mm calculus at the right UVJ Factors affecting care: n nephrolithiasis, diabetes Social determinants of health: History of mental health disorder History obtained from others: Family Consults: Radiology. Discussed with Dr. Mccollum?noted phlebolith close to the UVJ but no kidney stone. Noted this was present on prior CT scan from 2013. MDM Narrative: Patient was initially tachycardic with a pulse of 105 otherwise afebrile and nontoxic-appearing. No auscultated bruits or pulse abdominal masses on exam. Severe right CVA noted initially. I considered the following differential diagnosis: Nephrolithiasis, pyelonephritis, AAA, musculoskeletal etiology I obtained a broad lab and imaging workup to further elucidate the etiology the patient complaint. Gave IV fluids (1 L normal saline), 4 mg of IV Zofran, and 4 mg of IV morphine for symptomatic control. ALL IMAGES (IF OBTAINED) HAVE BEEN PERSONALLY REVIEWED AND INTERPRETED BY MYSELF. CBC without leukocytosis, severe anemia, no thrombocytopenia. BMP with hyponatremia (pseudohyponatremia), signs of metabolic acidosis with a marginally low bicarb at 20, no evidence of endorgan hypoperfusion with normal anion gap, noted hyperglycemia which is likely producing pseudohyponatremia. No evidence of DKA with no anion ga Lipase is wnl indicating no pancreatic inflammation. Urinalysis without evidence of infection but shows evidence of glucosuria and ketonuria Urine test is negative CT scan abdomen pelvis was read reviewed personally myself shows evidence of a small calculus at the right UVJ likely reduce the patient's symptoms. Will await radiologist read. Radiologist initially read no acute process. On reassessment approximately 9:30 AM patient continued to have pain and received another dose of IV morphine. On second reassessment at approximately 12 PM patient's blood pressure improved 124/86, heart rate improved to 95. Patient is pain-free after morphine. CT scan was negative labs were negative patient's vitals are stable she is appropriate discharge home with close outpatient follow-up. No clear life-limiting etiology could be identified here in the emergency department. The patient and/or family, caregivers express understanding. The patient and/or family, caregivers agrees with the plan. Shared decision making: I will have a discussion with the patient and or visitors regarding risk/benefits of further testing or admission. They will be made aware of of the risk/benefits inherent in this decision they will be given the opportunity to voice understanding. Total critical care time today provided was at least 0 minutes. This excludes separately billable procedures. Critical care time (if documented) is secondary to the patient having high probability of clinically significant/life threatening deterioration in the patient's condition which required my urgent intervention. Impression: 1. Acute right flank pain 2. Tachycardia 3. Hyperglycemia Dispo: Discharge home This note was generated with [employer]cov[employer] dictation software. It may contain incorrect words, spelling, and punctuation that were not noted in review of the chart prior to signing. Lab Data Labs: Laboratory Results - last 24 hr 02/11/24 02/11/24 08:30 08:45 WBC 7.7 RBC 5.18 Hgb 15.5 H Hct 43.9 MCV 84.7 MCH 29.9 MCHC 35.3 RDW Std Deviation 35.9 RDW Coeff of Marc 11.8 Plt Count 225 MPV 10.8 Immature Gran % (Auto) 0.600 Neut % (Auto) 54.9 Lymph % (Auto) 31.6 Saline % (Auto) 8.7 Eos % (Auto) 3.4 Baso % (Auto) 0.8 Absolute Neuts (auto) 4.3 Absolute Lymphs (auto) 2.44 Nucleated RBC % 0 Sodium 131 L Potassium 3.9 Chloride 101 Carbon Dioxide 20.0 L Anion Gap 10 BUN 13 Creatinine 0.72 Estim Creat Clear Calc 101.79 Est GFR (MDRD) Af Amer 109 Est GFR (MDRD) Non-Af 90 BUN/Creatinine Ratio 18.0 Glucose 366 H Calcium 9.2 Lipase 40 Urine Color Yellow Urine Clarity Sl. Cloudy Urine pH 7.0 Ur Specific [place] 1.010 Urine Protein Negative Urine Glucose (UA) 1000 H Urine Ketones 15 H Urine Occult Blood Negative Urine Nitrite Negative Urine Bilirubin Negative Urine Urobilinogen Normal Ur Leukocyte Esterase Negative Urine RBC 0 SEEN Urine WBC 0-5 SEEN Ur Squamous Epith Cells 5-10 SEEN Urine Bacteria 1+ Urine Mucus 0 SEEN Urine Yeast RARE Urine Test Negative Radiography Diagnostic Testing: Clinical Impression(s) from Imaging Studies Abdomen/Pelvis CT 02/11/24 07:52 IMPRESSION: No acute abdominal or pelvic pathology. Fatty liver. Electronically Signed: Anibal Mccollum MD at 9:58 EDT , Discharge Plan Triage Chief Complaint: Flank Pain ED Provider: Jacek Jack Dx/Rx/DC Orders Clinical Impression: Nephrolithiasis Instructions: ED Flank Pain, Uncertain Cause Prescriptions: New oxycodone 5 mg tablet 5 mg PO Q6H PRN (Reason: pain) 3 Days Qty: 12 0RF ondansetron 4 mg tablet,disintegrating 4 mg PO Q8H PRN PRN (Reason: Nausea) Qty: 10 0RF No Action pregabalin [Lyrica] 50 mg Capsule 50 mg PO TID quetiapine [Seroquel] 50 mg Tablet 50 mg PO QHS insulin asp prt-insulin aspart [Novolog Mix 70-30FlexPen U-100] 100 unit/mL (70-30) Insulin Pen 20 unit SUBCUT TID amitriptyline 25 mg tablet 25 - 50 mg PO QHS lurasidone 40 mg tablet 40 mg PO DAILY tramadol 50 mg tablet 50 mg PO Q8H aspirin 81 mg Tablet,Chewable 81 mg PO BREAKFAST 90 Days Qty: 90 0RF atorvastatin 40 mg tablet 40 mg PO QHS 90 Days Qty: 90 0RF gabapentin 300 mg capsule 300 mg PO Q8H Patient Comments: TAKE 1 CAPSULE BY MOUTH THREE TIMES DAILY insulin glargine [Lantus Solostar U-100 Insulin] 100 unit/mL (3 mL) insulin pen 15 unit SUBCUT QHS Patient Comments: INJECT 15 UNITS UNDER THE SKIN ONCE DAILY AT BEDTIME. hydrocodone-acetaminophen 5-325 mg tablet 1 tab PO Q6H PRN PRN (Reason: Pain) 3 Days Qty: 10 0RF Primary Care Provider: Kristina Mcclure Referrals: Kristina Mcclure, DO [Primary Care Provider] - Activity Restrictions/Additional Instructions: Thank you for trusting us with your care today! Your labs images were negative. Please take Tylenol (2 pills, 650 mg), ibuprofen (2 pills, 400 mg) every 6 hours as needed for pain and fever control. Please return to the emergency department if your symptoms change or worsen. Please follow with your primary care physician for further outpatient evaluation and management. Print Language: Armenian Disposition Disposition: Home, Self Care
--- NOTE | 2024-02-11 07:52 | CT_ITS ---
STUDY: CT ABDOMEN AND PELVIS WITHOUT CONTRAST REASON FOR EXAM: Female, 53 years old. Right-sided flank pain RADIATION DOSAGE (If Supplied By Facility): CTDIvol = ( 9.87 ) mGy, DLP = ( 495.56 ) mGycm TECHNIQUE: Transaxial images were obtained from the dome of the diaphragm to the symphysis pubis without oral contrast, and without intravenous contrast. Sagittal and coronal images were reconstructed. CT scan performed according to ALARA principles. Automated exposure control used during exam. COMPARISON: Prior study dated: 04-12 FINDINGS: Evaluation of the abdominal viscera is limited in the absence of intravenous contrast. LOWER THORAX: There is atelectasis at the lung bases. The visualized portions of the heart and pericardium are within normal limits. GALLBLADDER / BILE DUCTS: The patient is status post cholecystectomy. The common bile duct is normal in caliber. There are no calcified ductal stones. LIVER: The liver is low in density, consistent with fatty infiltration. SPLEEN: The spleen is normal in size. PANCREAS: The pancreas demonstrates an unremarkable unenhanced appearance. ADRENAL GLANDS: The adrenal glands are within normal limits. KIDNEYS / BLADDER: There are no renal or ureteral stones. There is no hydronephrosis. There are no focal renal lesions identified on this noncontrast exam. The urinary bladder is partially distended and appears grossly unremarkable. STOMACH / BOWEL: Normal visualized stomach. There is no bowel obstruction or inflammation. The patient is status post appendectomy. PERITONEUM / RETROPERITONEUM: There is no abdominal or pelvic free air, free fluid or fluid collection. There is no abnormal soft tissue mass identified. There is no abdominal or pelvic lymphadenopathy. VESSELS: The aorta is normal in caliber. The IVC is unremarkable. BONES: There are no destructive osseous lesions. SOFT TISSUES: The visualized soft tissues are within normal limits. CT/Abdomen/Pelvis without Cont IMPRESSION: No acute abdominal or pelvic pathology. Fatty liver. Electronically Signed: Anibal Mccollum MD at 9:58 EDT ,
[2024-02-11 08:37] LABS: Absolute Lymphocyte Count 2.44 X10^3/uL (0.83-4.51); Absolute Neutrophil Count 4.3 X10^3/uL (2.0-7.7); Basophil# 0.06 X10^3/uL; Basophil% 0.8 % (0-1); Eosinophil# 0.26 X10^3/uL; Eosinophils% 3.4 % (0-5); Hematocrit 43.9 % (37-47); Hemoglobin 15.5 g/dL (12.0-15.0); Lymphocyte # 2.44 X10^3/ul (0.83-4.51); Lymphocyte % 31.6 % (19-41); Mean Corp Hgb Conc 35.3 g/dL (32-36); Mean Corpuscular Hgb 29.9 pg (27.0-32.0); Mean Corpuscular Volume 84.7 fL (81-99); Mean Platelet Vol. 10.8 fl (6.2-12.0); Monocyte# 0.67 X10^3/uL; Monocyte% 8.7 % (0-10); NRBC Flagged by Analyzer 0 % (0-5); Neutrophil # 4.25 X10^3/uL (2.7-7.7); Neutrophil % 54.9 % (47-70); Platelet Count 225 K/mm3 (150-450); RBC Distribution Width CV 11.8 % (11.6-14.6); RBC Distribution Width SD 35.9 fl (35.1-43.9); Red Blood Count 5.18 M/mm3 (4.2-5.4); White Blood Count 7.7 K/mm3 (4.4-11.0)
[2024-02-11] MEDS: Ketorolac 15 MG/ML Vial IV (08:40)
[2024-02-11] MEDS: Ondansetron 4 MG/2 ML Vial IV (08:40)
[2024-02-11 08:49] LABS: Mucous, Urine 0 SEEN /hpf (<or=2+); Red Blood Cells-Urine 0 SEEN /hpf (0-5)
[2024-02-11 08:50] LABS: Anion Gap 10 (5-15); BUN 13 mg/dL (7-18); Calcium,Total 9.2 mg/dL (8.5-10.1); Chloride 101 mmol/L (98-107); Creatinine, Serum 0.72 mg/dL (0.55-1.02); EST Glomerular Filtration Rate 90 mL/min (>60); Est Glom Filt Rate - Afr Amer 109 mL/min (>60); Estimated Creatinine Clearance 101.79 ml/min; Glucose 366 mg/dL (74-106); Lipase 40 U/L (13-75); Potassium 3.9 mmol/L (3.5-5.1); Sodium Level 131 mmol/L (136-145)
[2024-02-11 08:58] LABS: Color, Urine Yellow (Yellow); Glucose, Dipstick 1000 mg/dl (Normal); Ketone-Dipstick 15 mg/dl (Negative); Leukocyte Esterase-Dipstick Negative /ul (Negative); Nitrite-Dipstick Negative (Negative); Occult Blood-Urine Negative /ul (Negative); Protein-Dipstick Negative (Negative); Urine Bilirubin Dipstick Negative (Negative); Urine Clarity Sl. Cloudy (Clear); Urine Urobilinogen Normal (Normal)
[2024-02-11 09:00] LABS: Internal QC Validated? YES +Cl - CLEAR BKGD; Pregnancy, Urine Negative Negative; Record Kit Lot#,Urine Preg HCG0000772476
[2024-02-11 09:21] LABS: Squamous Epithelial Cells - UA 5-10 SEEN /hpf (5-10); White Blood Cells 0-5 SEEN /hpf (0-5); Yeast-Urine RARE /hpf (None Seen)
[2024-02-11 09:22] LABS: Bacteria 1+ /hpf (None Seen)
[2024-02-11] MEDS: Morphine 4 MG/ML Syringe IV (09:34)
[2024-02-11 09:35] VITALS: BP 130/92; PULSE 85; RESP 18; O2SAT 96
[2024-02-11 11:06] VITALS: BP 124/86; PULSE 95; RESP 18; O2SAT 96
[2024-02-11 12:08] VITALS: BP 117/60; PULSE 75; RESP 18; TEMP 36.6; O2SAT 100
== END 2024-02-11 12:09 | disposition home or self-care (01) ==
PROVIDERS: Emergency Provider Emergency Medicine; PCP Internal Medicine; Visit Provider Emergency Medicine
DX: R10.9 Unspecified abdominal pain (principal); F31.9 Bipolar disorder, unspecified; E11.65 Type 2 diabetes mellitus with hyperglycemia; R00.0 Tachycardia, unspecified; F17.210 Nicotine dependence, cigarettes, uncomplicated; F12.90 Cannabis use, unspecified, uncomplicated; J45.909 Unspecified asthma, uncomplicated
CPT/HCPCS: 74176; 80048; 81001; 81025; 83690; 85025; 96374; 96375; 99283; A4216; J2405

== ENCOUNTER 2024-02-26 16:54 | Emergency (ER) | payer MEDICARE, SELFPAY ==
[2024-02-26 16:55] VITALS: BP 114/83; PULSE 127; RESP 18; TEMP 35.5; O2SAT 97; BMI 26.4
--- NOTE | 2024-02-26 17:26 | EDS_ITS ---
HPI History of Present Illness Chief Complaint: Abd Pain Narrative Narrative: 53-year-old female past medical history of lupus, diabetes, on baclofen and gabapentin presents with dermatomal right flank pain that she has had for the last 2 to 3 weeks. She states she was seen in the emergency department previously where they performed a CT of the abdomen and pelvis for her flank pain. They put her on oxycodone, which did not seem to help and discharged her. She followed up with her primary care provider who switched her to baclofen and changed her from her Flexeril and oxycodone. This seemed to work well for her for about a week to a week and a half. Last week she developed nausea and vomiting, and her pain returned. She is describing more of a sharp stabbing and burning pain along her right flank. It radiates from her back. She denies any problems with urination, noting that is clear and not malodorous. No fevers or chills. No exacerbating or alleviating factors. She thinks she may have noticed a rash that developed or small dots on her abdomen. [facility] Medical History Bipolar disorder Depression Anxiety Chronic pain Smoker Seizures Tobacco use IDDM (insulin dependent diabetes mellitus) Anxiety and depression Diabetes Lupus Asthma Migraines Home Medications ?Medication ?Instructions ?Recorded ?Last Taken ?Type insulin aspar prot-insulin aspart 20 unit subcut TID 01/18/22 Unknown History 100 unit/mL (70-30) subcutaneous pen (Novolog Mix 70-30FlexPen U-100) pregabalin 50 mg capsule (Lyrica) 50 mg PO TID 01/18/22 Unknown History quetiapine 50 mg tablet (Seroquel) 50 mg PO QHS 01/18/22 Unknown History amitriptyline 25 mg tablet 50 mg PO QHS 03/05/23 Unknown History tramadol 50 mg tablet 50 mg PO Q8H lynphoma,lupus 03/06/23 03/05/23 06:00 History atorvastatin 40 mg tablet 40 mg PO QHS 90 days #90 tabs 03/07/23 Unknown Rx gabapentin 300 mg capsule 300 mg PO Q8H 04/26/23 Unknown History insulin glargine 100 unit/mL (3 15 unit subcut QHS 04/26/23 Unknown History mL) subcutaneous pen (Lantus Solostar U-100 Insulin) ondansetron 4 mg disintegrating 4 mg PO Q8H PRN PRN Nausea #10 tabs 02/11/24 Unknown Rx tablet oxycodone 5 mg tablet 5 mg PO Q6H PRN pain 3 days #12 02/11/24 Unknown Rx tabs oxycodone 5 mg tablet 5 mg PO Q6H PRN pain 3 days #12 02/26/24 Unknown Rx tabs trazodone 100 mg tablet 100 mg PO QHS PRN PRN insomnia 02/26/24 Unknown History Allergy/AdvReac Type Severity Reaction Status Date / Time coconut oil Allergy Rash Verified 02/26/24 16:54 venom-honey bee Allergy Unknown Verified 02/26/24 16:54 Family History Aunt Breast cancer Cancer vulvar cancer Grandmother Cancer vulvar Father CVA (cerebral vascular accident) Hypertension Other Heart disease Surgical History History of lumpectomy History of appendectomy Hx of tonsillectomy H/O: hysterectomy Hx of cholecystectomy Social History household members: spouse Smoking Status: Current every day smoker tobacco type: cigarettes alcohol intake: current details: social substance use type: marijuana caffeine: Yes what type of physical activity do you participate in: none seatbelt use: always do you feel safe at home: Yes 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 HEENT: No sore throat. No neck pain. No loss of vision. No rhinorrhea. Cardiovascular: No chest pain. No palpitations. No pedal edema. Respiratory: No cough, no shortness of breath. Abdominal: No abdominal pain. Positive nausea and vomiting last week. Genitourinary: No dysuria. No hematuria. Musculoskeletal: No myalgias. No arthralgias. Positive back pain. Neurologic: No headaches. No dizziness. No lightheadedness. Skin: Questionable rash. No change in color. Psychiatric: No depression. No anxiety. EXAM Physical Exam Narrative Exam Narrative: Afebrile. Vital signs noted. HEENT: Normocephalic. Atraumatic. PERRL, EOMI. Neck soft and supple. No point tenderness or step off. Cardiovascular: Regular rate and rhythm. No murmurs, rubs, or gallops appreciated. Respiratory: No tachypnea. Lungs clear to auscultation bilaterally. Gastrointestinal: Abdomen soft, nontender, with normoactive bowel sounds. No rebound or guarding. Neurological: Awake. Alert. Nonfocal, nonlateralizing. Skin: No rash. Normal color. No pallor. Musculoskeletal: No pedal edema. Full range of motion extremities. Diffuse tenderness to palpation right paraspinal thoracolumbar area. No noted erythema. Const Vital Signs: 02/26/24 16:55 02/26/24 18:54 02/26/24 19:26 Temperature 96 F L 98.2 F Temperature Source Temporal Pulse Rate 127 H 105 H 95 Respiratory Rate 18 18 18 Blood Pressure 114/83 H 112/74 114/78 Blood Pressure Mean 93 86 90 Pulse Ox 97 95 96 Oxygen Delivery Method Room Air MDM MDM MDM Narrative Medical decision making narrative: Differential diagnosis includes but not limited to prodromal pain secondary to shingles versus dermatomal pain versus thoracic a lumbar disc bulging. I did offer the patient stronger pain medication but she declined. She states she already takes gabapentin but the baclofen is no longer working. I have low suspicion for any chest pathology. I reviewed her laboratory work and she has normal white count of 8.0, hemoglobin slightly hemoconcentrated at 17.5 with hematocrit 51.8, platelet count normal at 215. Sodium is low at 133 she has a chronic hyponatremia when compared to prior labs. Glucose is elevated at 386 but she has a normal anion gap of 10 so I doubt diabetic ketoacidosis. BUN normal at 14 with creatinine 0.98. LFTs are remarkable for an alk phos slightly elevated at 127 which I think is nonspecific, lipase normal at 34 so I doubt pancreatitis. I reviewed the radiology reports of the CT of the thoracic spine, and of the lumbar spine. While she has degenerative changes there is no acute fracture noted. She might have slight wedge compression deformity of T8 and T9. At this point in time, I am reluctant to give her antivirals because she does not have a rash of shingles although this may be more prodromal. It does sound more like neuropathic pain and she is already on gabapentin and baclofen. She requested stronger pain medications so she was given oxycodone 5 mg here. I did write her prescription for 12 more tablets. I do not feel that she requires other imaging at this time as she has already had a workup for this and a CT of the abdomen and pelvis. Ur inalysis was obtained and reviewed and there is no evidence of infection. While I am unsure as to the cause of her right sided flank pain, I feel she can be discharged to follow-up with her primary care provider and continue her previous medications. Return instructions to the emergency department were reviewed. Patient agreeable to the plan. Disposition is discharged in stable condition. History & Record Review Discussion w/independent historian: Patient Additional record(s) reviewed:: Prior labs Lab Data Attestation: I reviewed the patient's lab results. Labs: Laboratory Results - last 24 hr 02/26/24 02/26/24 17:34 18:50 WBC 8.0 RBC 5.82 H Hgb 17.5 H Hct 51.8 H MCV 89.0 MCH 30.1 MCHC 33.8 RDW Std Deviation 40.6 RDW Coeff of Marc 12.4 Plt Count 215 MPV 11.2 Immature Gran % (Auto) 0.400 Neut % (Auto) 69.1 Lymph % (Auto) 20.7 [place] % (Auto) 6.2 Eos % (Auto) 3.0 Baso % (Auto) 0.6 Absolute Neuts (auto) 5.5 Absolute Lymphs (auto) 1.66 Nucleated RBC % 0 Sodium 133 L Potassium 4.3 Chloride 101 Carbon Dioxide 22.0 Anion Gap 10 BUN 14 Creatinine 0.98 Estim Creat Clear Calc 74.05 Est GFR (MDRD) Af Amer 77 Est GFR (MDRD) Non-Af 64 BUN/Creatinine Ratio 14.3 Glucose 386 H Calcium 9.7 Total Bilirubin 0.30 AST 16 ALT 35 Alkaline Phosphatase 127 H Total Protein 8.4 H Albumin 4.2 Globulin 4.2 Albumin/Globulin Ratio 1.0 Lipase 34 Urine Color Yellow Urine Clarity Sl. Cloudy Urine pH 6.0 Ur Specific [place] 1.020 Urine Protein 15 H Urine Glucose (UA) 1000 H Urine Ketones 5 H Urine Occult Blood Negative Urine Nitrite Negative Urine Bilirubin Negative Urine Urobilinogen Normal Ur Leukocyte Esterase Negative Urine RBC 0 SEEN Urine WBC 0-5 SEEN Ur Squamous Epith Cells 5-10 SEEN Urine Bacteria 0 SEEN Urine Mucus 0 SEEN Radiography Diagnostic Testing: Clinical Impression(s) from Imaging Studies Lumbar Spine CT 02/26/24 18:02 IMPRESSION: Mild degenerative changes of the lumbar spine. Electronically Signed: Daron Cannon at 18:35 EDT , Thoracic Spine CT 02/26/24 18:02 IMPRESSION: No evidence of acute thoracic spinal fracture or spondylolisthesis. Electronically Signed: Daron Davis at 18:43 EDT , Discharge Plan Triage Chief Complaint: Abd Pain ED Provider: Lamin Hernandez Dx/Rx/DC Orders Clinical Impression: Neuropathic pain, Right flank pain Instructions: ED Flank Pain, Uncertain Cause, ED Pain, Acute, Uncertain Cause Prescriptions: New oxycodone 5 mg tablet 5 mg PO Q6H PRN (Reason: pain) 3 Days Qty: 12 0RF No Action pregabalin [Lyrica] 50 mg Capsule 50 mg PO TID quetiapine [Seroquel] 50 mg Tablet 50 mg PO QHS insulin asp prt-insulin aspart [Novolog Mix 70-30FlexPen U-100] 100 unit/mL (70-30) Insulin Pen 20 unit SUBCUT TID amitriptyline 25 mg tablet 50 mg PO QHS tramadol 50 mg tablet 50 mg PO Q8H atorvastatin 40 mg tablet 40 mg PO QHS 90 Days Qty: 90 0RF gabapentin 300 mg capsule 300 mg PO Q8H Patient Comments: TAKE 1 CAPSULE BY MOUTH THREE TIMES DAILY insulin glargine [Lantus Solostar U-100 Insulin] 100 unit/mL (3 mL) insulin pen 15 unit SUBCUT QHS Patient Comments: INJECT 15 UNITS UNDER THE SKIN ONCE DAILY AT BEDTIME. oxycodone 5 mg tablet 5 mg PO Q6H PRN (Reason: pain) 3 Days Qty: 12 0RF ondansetron 4 mg tablet,disintegrating 4 mg PO Q8H PRN PRN (Reason: Nausea) Qty: 10 0RF trazodone 100 mg tablet 100 mg PO QHS PRN PRN (Reason: insomnia) Primary Care Provider: Kristina Mcclure Referrals: Kristina Mcclure, [Primary Care Provider] - 1 Day Activity Restrictions/Additional Instructions: Continue your gabapentin and baclofen as needed. Use the oxycodone for breakthrough pain. If you develop a rash on that right flank or on your back, return to the emergency department, or follow-up with your primary care provider. Print Language: Ukrainian Disposition Disposition: Home, Self Care Discharge Date/Time: 02/26/24 19:31
--- NOTE | 2024-02-26 17:31 | EKG12_ITS ---
Test Reason : TACHY Blood Pressure : / mmHG Vent. Rate : 108 BPM Atrial Rate : 108 BPM P-R Int : 158 ms QRS Dur : 084 ms QT Int : 330 ms P-R-T Axes : 033 -25 027 degrees QTc Int : 442 ms Sinus tachycardia Otherwise normal ECG Confirmed by Joseph Duvall ([id number]), publications editor CEZAR MCCOY ([id number]) on 02/27/2024 8:19:58 AM Referred By: Confirmed By:Joseph Duvall
[2024-02-26 17:50] LABS: Absolute Lymphocyte Count 1.66 X10^3/uL (0.83-4.51); Absolute Neutrophil Count 5.5 X10^3/uL (2.0-7.7); Basophil# 0.05 X10^3/uL; Basophil% 0.6 % (0-1); Eosinophil# 0.24 X10^3/uL; Hematocrit 51.8 % (37-47); Hemoglobin 17.5 g/dL (12.0-15.0); Lymphocyte # 1.66 X10^3/ul (0.83-4.51); Lymphocyte % 20.7 % (19-41); Mean Corp Hgb Conc 33.8 g/dL (32-36); Mean Corpuscular Hgb 30.1 pg (27.0-32.0); Mean Platelet Vol. 11.2 fl (6.2-12.0); Monocyte% 6.2 % (0-10); NRBC Flagged by Analyzer 0 % (0-5); Neutrophil # 5.54 X10^3/uL (2.7-7.7); Neutrophil % 69.1 % (47-70); Platelet Count 215 K/mm3 (150-450); RBC Distribution Width CV 12.4 % (11.6-14.6); RBC Distribution Width SD 40.6 fl (35.1-43.9); Red Blood Count 5.82 M/mm3 (4.2-5.4)
--- NOTE | 2024-02-26 18:02 | CT_ITS ---
INDICATION: dermatomal pain EXAMINATION: CT THORACIC SPINE - CT Spine Thoracic W/O Contrast Injection TECHNIQUE: Helically acquired images were obtained of the thoracic spine. 2D reformats were reviewed. A radiation dose optimization technique was used for this scan. The protocol utilizes one or more of the following dose reduction techniques: automated exposure control, adjustment of mA and/or kV according to patient size,and/or use of iterative reconstruction technique. IV Contrast dosage and agent: None. RADIATION DOSAGE (If Supplied By Facility): CTDIvol = ( 19.21 ) mGy, DLP = ( 702.02 ) mGycm COMPARISON: FINDINGS: VERTEBRAE: Mild acute wedge compression of T8 and T9 vertebral bodies. No discrete lytic or blastic abnormality observed. VERTEBRAL ALIGNMENT: Unremarkable. There is preservation of the normal thoracic kyphosis. DISCS: Disc heights are preserved. VISUALIZED THORAX: Visualized thoracic aorta is nondilated. Lung velez are clear. CT/Spine Thoracic without Contras IMPRESSION: No evidence of acute thoracic spinal fracture or spondylolisthesis. Electronically Signed: Daron Cannon DO at 18:43 EDT Reading Location ID and State: [facility] / [place] Tel [phone], Service support ,
--- NOTE | 2024-02-26 18:02 | CT_ITS ---
STUDY: CT LUMBAR SPINE WITHOUT CONTRAST REASON FOR EXAM: Female, 53 years old. dermatomal pain, right RADIATION DOSAGE (If Supplied By Facility): CTDIvol = ( 29.05 ) mGy, DLP = ( 1032.97 ) mGycm TECHNIQUE: The patient was scanned in a multi detector CT scanner. High resolution transaxial imaging was performed. Images were obtained from to . Sagittal and coronal images were reconstructed. Individualized dose optimization techniques were used for this CT. COMPARISON: None FINDINGS: Normal lumbar lordosis. There is no substantial scoliosis. Normal vertebrae of the lumbar spine. L1-2: Spurring at the endplates. Normal disc height and morphology. Normal bilateral facet joints. Normal central canal and bilateral lateral recesses. Normal bilateral intervertebral neural foramina. L2-3: Mild spurring at the endplates. Normal disc height and morphology. Normal bilateral facet joints. Normal central canal and bilateral lateral recesses. Normal bilateral intervertebral neural foramina. L3-4: Normal endplates. Normal disc height and morphology. Normal bilateral facet joints. Normal central canal and bilateral lateral recesses. Normal bilateral intervertebral neural foramina. L4-5: Normal endplates. Normal disc height and morphology. Normal bilateral facet joints. Normal central canal and bilateral lateral recesses. Normal bilateral intervertebral neural foramina. L5-S1: Normal endplates. Normal disc height and morphology. Normal bilateral facet joints. Normal central canal and bilateral lateral recesses. Normal bilateral intervertebral neural foramina. Normal visualized paraspinous soft tissue structures. CT/Spine Lumbar without Contrast IMPRESSION: Mild degenerative changes of the lumbar spine. Electronically Signed: Daron Cannon DO at 18:35 EDT Reading Location ID and State: [facility] / [place] Tel [phone], Service support ,
[2024-02-26 18:06] LABS: AST(SGOT) 16 U/L (15-37); Alanine Aminotransfer ALT/SGPT 35 U/L (13-56); Albumin, Serum 4.2 g/dL (3.2-5.0); Alkaline Phosphatase 127 U/L (45-117); Anion Gap 10 (5-15); BUN 14 mg/dL (7-18); BUN/Creat Ratio 14.3 RATIO (10-20); Calcium,Total 9.7 mg/dL (8.5-10.1); Chloride 101 mmol/L (98-107); Creatinine, Serum 0.98 mg/dL (0.55-1.02); EST Glomerular Filtration Rate 64 mL/min (>60); Est Glom Filt Rate - Afr Amer 77 mL/min (>60); Estimated Creatinine Clearance 74.05 ml/min; Globulin 4.2 g/dL (2.2-4.2); Glucose 386 mg/dL (74-106); Lipase 34 U/L (13-75); Potassium 4.3 mmol/L (3.5-5.1); Protein, Total 8.4 g/dL (6.4-8.2); Sodium Level 133 mmol/L (136-145)
[2024-02-26] MEDS: HYDROcodone Bitartrate/Apap 5/325 Tablet PO (18:08)
[2024-02-26 18:54] VITALS: BP 112/74; PULSE 105; RESP 18; O2SAT 95
[2024-02-26 18:57] LABS: Color, Urine Yellow (Yellow); Glucose, Dipstick 1000 mg/dl (Normal); Ketone-Dipstick 5 mg/dl (Negative); Leukocyte Esterase-Dipstick Negative /ul (Negative); Nitrite-Dipstick Negative (Negative); Occult Blood-Urine Negative /ul (Negative); Protein-Dipstick 15 mg/dl (Negative); Urine Bilirubin Dipstick Negative (Negative); Urine Clarity Sl. Cloudy (Clear); Urine Urobilinogen Normal (Normal)
[2024-02-26 18:58] LABS: Bacteria 0 SEEN /hpf (None Seen); Mucous, Urine 0 SEEN /hpf (<or=2+); Red Blood Cells-Urine 0 SEEN /hpf (0-5)
[2024-02-26 19:22] LABS: Squamous Epithelial Cells - UA 5-10 SEEN /hpf (5-10); White Blood Cells 0-5 SEEN /hpf (0-5)
[2024-02-26 19:26] VITALS: BP 114/78; PULSE 95; RESP 18; TEMP 36.8; O2SAT 96
== END 2024-02-26 19:31 | disposition home or self-care (01) ==
PROVIDERS: Emergency Provider Emergency Medicine; PCP Internal Medicine; Visit Provider Emergency Medicine
DX: E11.40 Type 2 diabetes mellitus with diabetic neuropathy, unspecified (principal); Z79.4 Long term (current) use of insulin; M54.6 Pain in thoracic spine; M54.50 Low back pain, unspecified; F17.210 Nicotine dependence, cigarettes, uncomplicated; Z79.899 Other long term (current) drug therapy; Z79.891 Long term (current) use of opiate analgesic
CPT/HCPCS: 72128; 72131; 80053; 81001; 83690; 85025; 93005; 99282; A4216

== ENCOUNTER 2024-04-28 12:23 | Emergency (ER) | payer MEDICARE, SELFPAY ==
[2024-04-28 12:24] VITALS: BP 131/77; PULSE 130; RESP 16; TEMP 36.3; O2SAT 97; BMI 25.9
[2024-04-28 13:06] LABS: Absolute Neutrophil Count 10.1 X10^3/uL (2.0-7.7); Basophil# 0.11 X10^3/uL; Basophil% 0.8 % (0-1); Eosinophil# 0.25 X10^3/uL; Eosinophils% 1.9 % (0-5); Hematocrit 52.1 % (37-47); Hemoglobin 17.5 g/dL (12.0-15.0); Lymphocyte % 17.1 % (19-41); Mean Corp Hgb Conc 33.6 g/dL (32-36); Mean Corpuscular Hgb 30.8 pg (27.0-32.0); Mean Corpuscular Volume 91.7 fL (81-99); Mean Platelet Vol. 11.7 fl (6.2-12.0); Monocyte% 5.2 % (0-10); NRBC Flagged by Analyzer 0 % (0-5); Neutrophil # 10.07 X10^3/uL (2.7-7.7); Neutrophil % 74.6 % (47-70); Platelet Count 243 K/mm3 (150-450); RBC Distribution Width CV 12.1 % (11.6-14.6); RBC Distribution Width SD 40.8 fl (35.1-43.9); Red Blood Count 5.68 M/mm3 (4.2-5.4); White Blood Count 13.5 K/mm3 (4.4-11.0)
[2024-04-28 14:23] VITALS: BP 107/78; PULSE 117; RESP 23; O2SAT 98
[2024-04-28] MEDS: Ondansetron 4 MG/2 ML Vial IV ×2 (14:33→16:55)
[2024-04-28] MEDS: Aspirin 81 MG TAB.CHEW 324 MG PO (14:33)
[2024-04-28] MEDS: Morphine 4 MG/ML Syringe IV ×2 (14:33→16:55)
[2024-04-28 15:00] VITALS: BP 115/90; PULSE 110; RESP 16; O2SAT 98
[2024-04-28 16:00] VITALS: BP 116/81; PULSE 107; RESP 16; O2SAT 99
[2024-04-28 16:09] LABS: D-Dimer Quantitative (DVT/PE) < 0.27 FEU/ug/m (0.27-0.49)
[2024-04-28 16:16] LABS: Anion Gap 14 (5-15); BUN 16 mg/dL (7-18); BUN/Creat Ratio 16.9 RATIO (10-20); Calcium,Total 9.1 mg/dL (8.5-10.1); Chloride 100 mmol/L (98-107); Creatinine, Serum 0.95 mg/dL (0.55-1.02); EST Glomerular Filtration Rate 66 mL/min (>60); Est Glom Filt Rate - Afr Amer 80 mL/min (>60); Estimated Creatinine Clearance 75.84 ml/min; Glucose 353 mg/dL (74-106); Potassium 5.3 mmol/L (3.5-5.1); Reflex Troponin-HS? (from REC) Y; Sodium Level 128 mmol/L (136-145); Troponin-I HS (w/2H Reflex) < 3 pg/mL (3.0-54.0)
[2024-04-28] MEDS: 0.9% Normal Saline (1000mL) 1,000 ML 1000 ML IV (16:16)
[2024-04-28 17:00] VITALS: BP 138/77; PULSE 98; RESP 16; O2SAT 99
[2024-04-28 17:10] LABS: Troponin-I HS < 3 pg/mL (3.0-54.0)
[2024-04-28] MEDS: Insulin Lispro 100 UNIT/ML INSULN.PEN 10 UNIT SC (17:36)
== END 2024-04-28 17:46 | disposition home or self-care (01) ==
PROVIDERS: Emergency Provider Emergency Medicine; PCP Internal Medicine; Visit Provider Emergency Medicine
DX: R07.9 Chest pain, unspecified (principal); E11.65 Type 2 diabetes mellitus with hyperglycemia; F17.210 Nicotine dependence, cigarettes, uncomplicated; F12.90 Cannabis use, unspecified, uncomplicated
CPT/HCPCS: 71045; 80048; 82009; 84484; 85025; 85379; 93005; 96361; 96374; 96375; 96376; 99283; J2405

== ENCOUNTER 2024-11-03 09:11 | Emergency (ER) | payer MEDICARE, SELFPAY ==
[2024-11-03] VITALS (7 sets, daily range): BP systolic 123–158; BP diastolic 74–117; PULSE 87–104; RESP 16–30; TEMP 36.8; O2SAT 95–98; BMI 24.3
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
--- NOTE | 2024-11-03 09:37 | EKG12_ITS ---
Test Reason : Blood Pressure : */* mmHG Vent. Rate : 100 BPM Atrial Rate : 100 BPM P-R Int : 152 ms QRS Dur : 80 ms QT Int : 358 ms P-R-T Axes : 6 90 82 degrees QTcB Int : 461 ms Normal sinus rhythm Rightward axis Low voltage QRS ST & T wave abnormality, consider anterolateral ischemia Abnormal ECG Confirmed by Joseph Duvall ([id number]), senior technical editor CASSANDRA DRUMMOND ([id number]) on 11/05/2024 12:47:37 PM Referred By: Confirmed By: Joseph Duvall
--- NOTE | 2024-11-03 09:37 | CT_ITS ---
PROCEDURE: BRAIN/HEAD WITHOUT CONTRAST 11/03/2024 REASON FOR EXAM: AMS TECHNIQUE: Head CT without intravenous contrast. Coronal and Sagittal reconstruction series were provided. One or more dose reduction techniques were used (e.g., Automated exposure control, adjustment of the mA and/or kV according to patient size, use of iterative reconstruction technique. RADIATION DOSE SUMMARY: CTDlvol: 90 mGy DLP: 1659.71 mGycm COMPARISON: Head CT of 04/26/2023. FINDINGS: Brain: Within normal limits for age CSF Spaces: Normal Sinuses/Mastoids: Clear at visualized levels Bones: No fracture or other significant osseous abnormality is seen. No orbital pathology is noted. CT/Brain/Head without Contrast IMPRESSION: Unremarkable examination. If clinical concern persists, further imaging with M RI may be considered. Reading Location: [place] [address]
--- NOTE | 2024-11-03 09:55 | EX.ED.VIS.PS ---
HPI HPI - Psych History of Present Illness Chief Complaint: Anxiety Informant: patient and spouse/S.O. Narrative Narrative: Patient is a 53-year-old female with history of diabetes mellitus, stroke, anxiety, fibromyalgia, bipolar disorder and PTSD presenting via EMS for concern of acute psychosis. Per report from , patient has been spiraling and more anxious over the past few days. No report of any drug use. He states has not been able to get help her down. Patient tells us that she woke up in the shower and is know how she got there. She is intermittently screaming out and thrashing. She states that she took meloxicam for the first time yesterday and it is in her and we need to get it out of her. She is concerned that it is poisoning her. Per report she does not have any history of psychosis. No report of any drug use. [facility] Medical History Bipolar disorder Depression Anxiety Chronic pain Smoker Seizures Tobacco use IDDM (insulin dependent diabetes mellitus) Anxiety and depression Diabetes Lupus Asthma Migraines Home Medications ?Medication ?Instructions ?Recorded ?Last Taken ?Type insulin aspar prot-insulin aspart 20 unit subcut TID 01/18/22 Unknown History 100 unit/mL (70-30) subcutaneous pen (Novolog Mix 70-30FlexPen U-100) pregabalin 50 mg capsule (Lyrica) 50 mg PO TID 01/18/22 Unknown History quetiapine 50 mg tablet (Seroquel) 50 mg PO QHS 01/18/22 Unknown History amitriptyline 25 mg tablet 50 mg PO QHS 03/05/23 Unknown History tramadol 50 mg tablet 50 mg PO Q8H lynphoma,lupus 03/06/23 03/05/23 06:00 History atorvastatin 40 mg tablet 40 mg PO QHS 90 days #90 tabs 03/07/23 Unknown Rx gabapentin 300 mg capsule 300 mg PO Q8H 04/26/23 Unknown History insulin glargine 100 unit/mL (3 15 unit subcut QHS 04/26/23 Unknown History mL) subcutaneous pen (Lantus Solostar U-100 Insulin) ondansetron 4 mg disintegrating 4 mg PO Q8H PRN PRN Nausea #10 tabs 02/11/24 Unknown Rx tablet oxycodone 5 mg tablet 5 mg PO Q6H PRN pain 3 days #12 02/11/24 Unknown Rx tabs oxycodone 5 mg tablet 5 mg PO Q6H PRN pain 3 days #12 02/26/24 Unknown Rx tabs trazodone 100 mg tablet 100 mg PO QHS PRN PRN insomnia 02/26/24 Unknown History Allergy/AdvReac Type Severity Reaction Status Date / Time coconut oil Allergy Rash Verified 11/03/24 09:18 venom-honey bee Allergy Unknown Verified 11/03/24 09:18 Family History Aunt Breast cancer Cancer vulvar cancer Grandmother Cancer vulvar Father CVA (cerebral vascular accident) Hypertension Other Heart disease Surgical History History of lumpectomy History of appendectomy Hx of tonsillectomy H/O: hysterectomy Hx of cholecystectomy Social History household members: spouse Smoking Status: Current every day smoker tobacco type: cigarettes alcohol intake: current details: social substance use type: marijuana caffeine: Yes what type of physical activity do you participate in: none seatbelt use: always do you feel safe at home: Yes 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 ROS ROS ED Review of Systems ROS Unobtainable: due to mental condition EXAM Physical Exam Const Vital Signs: 11/03/24 09:11 11/03/24 09:12 11/03/24 11:11 Temperature 98.2 F Temperature Source Oral Pulse Rate 104 H Respiratory Rate 30 H Blood Pressure 123/74 H 158/90 H Blood Pressure Mean 90 112 Pulse Ox 98 Oxygen Delivery Method Room Air 11/03/24 13:00 11/03/24 15:00 Temperature Temperature Source Pulse Rate 93 Respiratory Rate Blood Pressure 133/117 H 148/91 H Blood Pressure Mean 122 110 Pulse Ox 95 Oxygen Delivery Method Room Air Positive well nourished and well developed General Appearance ED: well developed and irritable; Negative for pallor HEENT Reports moist mucous membranes normocephalic and atraumatic Eyes PERRL and EOMs intact bilaterally Neck supple and no JVD Resp normal respiratory effort and clear to auscultation bilaterally Cardio no murmurs Rate: regular rate GI non-tender and non-distended Extremity normal to inspection General Extremety ED: Yes tenderness; Negative for edema General Extremity: Negative for edema Neuro no sensory deficits noted Sensorium / Orientation: alert, oriented to person and confused Motor Exam: muscle tone normal throughout Psych Appearance: grossly normal Attitude: uncooperative and belligerent Activity / Motor Behavior: appropriate eye contact Speech: loud Mood & Affect: irritable and expansive affect Thought Content: No suicidality, No homicidality, delusion(s) Delusional Thought Content Details: Positive for paranoid and obsession(s) Attention / Concentration: attention grossly impaired and concentration grossly impaired Memory / Cognition: memory grossly impaired Insight: poor Judgement: poor and questionable Skin General Skin Exam: Negative for jaundice or pallor MDM MDM MDM Narrative Medical decision making narrative: Patient evaluated for acute agitation and anxiety. Patient arrives to the ER she is yelling and thrashing. She is inconsolable and not redirectable. She has reported history of anxiety and PTSD but initially were not aware of any history of psychosis. We later were able to talk to her who states that she did have an admission at [facility] 7 years ago after what sounds like a psychotic break associated with severe anxiety. Patient initially requires IM Haldol and then IM Geodon/lorazepam for her agitation. Patient is otherwise been doing well until yesterday. She has been through a lot of medical issues including breast and vulvar cancer. Workup looking for underlying etiology of her acute agitation including psych clearance is obtained. She does not have any fine plastic surgery assistant with infection and I do not think this is encephalopathy or encephalitis. CT of the brain does not show any acute process. BMP does show hypokalemia potassium of 2.8. Magnesium was added on and mildly low at 1.4. Patient is given supplementation in the emergency room. Urinalysis is not consistent with infection or any severe metabolic state. She does have a mild elevation of her AST and ALT however bilirubin is normal. Right upper quadrant ultrasound was ordered which was limited secondary to cooperation but she did have findings consistent with hepatic steatosis which is consistent with her laboratory findings. Salicylate, acetaminophen and alcohol levels all negative. Her TSH is mildly low but T3 and T4 are normal as low suspicion for thyroid storm or myxedema coma causing her presentation. Patient is medically cleared. She is Accepted at [facility] with Dr. Claros. Lab Data Attestation: I reviewed the patient's lab results. Labs: Laboratory Results - last 24 hr 11/03/24 11/03/24 09:16 09:55 WBC 7.1 RBC 4.29 Hgb 13.4 Hct 36.2 L MCV 84.4 MCH 31.2 MCHC 37.0 H RDW Std Deviation 36.8 RDW Coeff of Marc 12.2 Plt Count 196 MPV 11.1 Immature Gran % (Auto) 0.400 Neut % (Auto) 71.2 H Lymph % (Auto) 18.1 L [place] % (Auto) 7.9 Eos % (Auto) 1.7 Baso % (Auto) 0.7 Absolute Neuts (auto) 5.1 Absolute Lymphs (auto) 1.28 Nucleated RBC % 0 Sodium 137 Potassium 2.8 L Chloride 103 Carbon Dioxide 15.7 L Anion Gap 19 H BUN 7 Creatinine 0.78 Estim Creat Clear Calc 85.11 Est GFR (MDRD) Non-Af 91 BUN/Creatinine Ratio 9.0 L Glucose 241 H Calcium 9.3 Magnesium 1.4 L Total Bilirubin 0.82 AST 121 H ALT 315 H Alkaline Phosphatase 63 Total Creatine Kinase 67 Total Protein 7.1 Albumin 4.5 Globulin 2.6 Albumin/Globulin Ratio 1.8 TSH 0.055 L Free T4 1.30 Free T3 pg/dL 2.6 Urine Color Yellow Urine Clarity Clear Urine pH 6.5 Ur Specific [place] 1.005 Urine Protein 15 H Urine Glucose (UA) 50 H Urine Ketones 5 H Urine Occult Blood Negative Urine Nitrite Negative Urine Bilirubin Negative Urine Urobilinogen Normal Ur Leukocyte Esterase 25 H Urine RBC 0 SEEN Urine WBC 0-5 SEEN Ur Squamous Epith Cells 0-5 SEEN Urine Bacteria 0 SEEN Urine Mucus 0 SEEN Salicylates < 0.5 L Urine Opiates Screen NEGATIVE U Buprenorphine Qual NEGATIVE Ur Oxycodone Screen NEGATIVE Urine Methadone Screen NEGATIVE Urine Fentanyl Screen NEGATIVE Acetaminophen < 5.0 L Ur Barbiturates Screen NEGATIVE Ur Phencyclidine Scrn NEGATIVE Ur Amphetamines Screen NEGATIVE U Benzodiazepines Scrn NEGATIVE Urine Cocaine Screen NEGATIVE U Cannabinoids Screen PRESUMPTIVE POSITIVE Ethyl Alcohol < 10.1 Radiography Diagnostic Testing: Clinical Impression(s) from Imaging Studies Brain CT 11/03/24 09:37 IMPRESSION: Unremarkable examination. If clinical concern persists, further imaging with MRI may be considered. Reading Location: [facility] Liver Ultrasound 11/03/24 11:14 IMPRESSION: 1. Limited incomplete exam due to patient request to terminate prematurely. 2. No definite/visualized acute process identified, noting that the gallbladder, CBD, and RIGHT kidney were not specifically evaluated. If concern persist, recommend CT. 3. Appearance of the hepatic parenchyma most commonly associated with hepatic steatosis. Correlate for clinical and laboratory evidence of chronic liver disease. Reading Location: [facility] Rhythm Strip Rhythm Strip: Sinus Rhythm Rate: 100 Ectopy: None EKG Initial EKG: Attestation: I personally reviewed and interpreted this EKG as follows: Interpretation: Sinus Rhythm Comments: Normal sinus rhythm at a rate of 100 bpm Rightward axis Low voltage QRS T wave inversions in precordial leads, nonspecific with no reciprocal changes Management Discussion w/another healthcare provider: Behavioral health Discharge Plan Triage Chief Complaint: Anxiety ED Provider: Ivonne Kyle Dx/Rx/DC Orders Clinical Impression: Anxiety, Hypokalemia, Hypomagnesemia Prescriptions: No Action pregabalin [Lyrica] 50 mg Capsule 50 mg PO TID quetiapine [Seroquel] 50 mg Tablet 50 mg PO QHS insulin asp prt-insulin aspart [Novolog Mix 70-30FlexPen U-100] 100 unit/mL (70-30) Insulin Pen 20 unit SUBCUT TID amitriptyline 25 mg tablet 50 mg PO QHS tramadol 50 mg tablet 50 mg PO Q8H atorvastatin 40 mg tablet 40 mg PO QHS 90 Days Qty: 90 0RF gabapentin 300 mg capsule 300 mg PO Q8H Patient Comments: TAKE 1 CAPSULE BY MOUTH THREE TIMES DAILY insulin glargine [Lantus Solostar U-100 Insulin] 100 unit/mL (3 mL) insulin pen 15 unit SUBCUT QHS Patient Comments: INJECT 15 UNITS UNDER THE SKIN ONCE DAILY AT BEDTIME. oxycodone 5 mg tablet 5 mg PO Q6H PRN (Reason: pain) 3 Days Qty: 12 0RF ondansetron 4 mg tablet,disintegrating 4 mg PO Q8H PRN PRN (Reason: Nausea) Qty: 10 0RF trazodone 100 mg tablet 100 mg PO QHS PRN PRN (Reason: insomnia) oxycodone 5 mg tablet 5 mg PO Q6H PRN (Reason: pain) 3 Days Qty: 12 0RF Primary Care Provider: Kristina Mcclure Referrals: Kristina Mcclure DO [Primary Care Provider] - Print Language: French Disposition Disposition: Psychiatric Hospital or Unit Discharge Location: [facility]
[2024-11-03] MEDS: Lorazepam 2 MG/ML WCH Syringe 1 MG IM (10:04)
[2024-11-03 10:09] LABS: Absolute Lymphocyte Count 1.28 X10^3/uL (0.83-4.51); Absolute Neutrophil Count 5.1 X10^3/uL (2.0-7.7); Basophil# 0.05 X10^3/uL; Basophil% 0.7 % (0-1); Eosinophil# 0.12 X10^3/uL; Eosinophils% 1.7 % (0-5); Hematocrit 36.2 % (37-47); Hemoglobin 13.4 g/dL (12.0-15.0); Lymphocyte # 1.28 X10^3/ul (0.83-4.51); Lymphocyte % 18.1 % (19-41); Mean Corpuscular Hgb 31.2 pg (27.0-32.0); Mean Corpuscular Volume 84.4 fL (81-99); Mean Platelet Vol. 11.1 fl (6.2-12.0); Monocyte# 0.56 X10^3/uL; Monocyte% 7.9 % (0-10); NRBC Flagged by Analyzer 0 % (0-5); Neutrophil # 5.05 X10^3/uL (2.7-7.7); Neutrophil % 71.2 % (47-70); Platelet Count 196 K/mm3 (150-450); RBC Distribution Width CV 12.2 % (11.6-14.6); RBC Distribution Width SD 36.8 fl (35.1-43.9); Red Blood Count 4.29 M/mm3 (4.2-5.4); White Blood Count 7.1 K/mm3 (4.4-11.0)
[2024-11-03] MEDS: Ziprasidone IM 20 MG/ML VIAL IM (10:18)
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
--- NOTE | 2024-11-03 10:25 | ED.RN ---
Patient verbalized needing to urinate. Patient was offered a bed ledbetter and a purewick. Patient refused both options. Patient verbalized wanting out of restraints. Due to erratic behavior and patient continuing to pull on restraints, this RN and HRO feel it would be unsafe at this time to remove restraints.
--- NOTE | 2024-11-03 10:30 | ED.RN ---
Patient argumentative with this RN at this time stating she does not need to be in restraints and that she has not tried to bite anyone in the past 20 minutes and should have restraints removed because of this. Patient agitated, pulling on restraints, and continuously moving in bed.
[2024-11-03 10:32] LABS: Amphetamine Urine NEGATIVE (<1000 ng/mL); Barbiturate Urine NEGATIVE (< 200 ng/mL); Benzodiazepine Urine NEGATIVE (< 200 ng/mL); Buprenorphine Urine NEGATIVE (< 200 ng/mL); Cocaine Urine NEGATIVE (< 300 ng/mL); Fentanyl, Urine NEGATIVE; Methadone Urine NEGATIVE (< 300 ng/mL); Opiates Urine NEGATIVE (< 300 ng/mL); Oxycodone, Urine NEGATIVE (< 100 ng/mL); PCP Urine NEGATIVE (< 25 ng/mL); THC Urine PRESUMPTIVE POSITIVE (< 50 ng/mL)
--- NOTE | 2024-11-03 10:35 | ED.RN ---
Patient's bedside and educated on reasoning for restraints
[2024-11-03 10:48] LABS: Alcohol, Blood (Medical)-Serum < 10.1 mg/dL (<=10.0)
[2024-11-03 10:55] LABS: CPK Total, Creatine Kinase 67 U/L (24-195); Thyroid Stim Hormone (TSH) 0.055 uIU/mL (0.300-4.200)
[2024-11-03 11:07] LABS: ALB/GLOB Ratio 1.8 RATIO (0.9-2.4); AST(SGOT) 121 U/L (<=31); Alanine Aminotransfer ALT/SGPT 315 U/L (<=34); Albumin, Serum 4.5 g/dL (3.5-5.0); Alkaline Phosphatase 63 U/L (35-104); Anion Gap 19 (5-15); BUN 7 mg/dL (4-19); Calcium,Total 9.3 mg/dL (7.6-11.0); Carbon Dioxide 15.7 mmol/L (21.0-32.0); Chloride 103 mmol/L (98-108); Creatinine, Serum 0.78 mg/dL (0.70-1.20); EST Glomerular Filtration Rate 91 (>60); Estimated Creatinine Clearance 85.11 ml/min (50-250); Globulin 2.6 g/dL (2.2-4.2); Glucose 241 mg/dL (70-99); Potassium 2.8 mmol/L (3.3-5.1); Protein, Total 7.1 g/dL (5.9-8.4); Sodium Level 137 mmol/L (133-145); Total Bilirubin 0.82 mg/dL (0.00-1.30)
--- NOTE | 2024-11-03 11:14 | US_ITS ---
PROCEDURE: LIVER ([facility]), 11/03/2024 REASON FOR EXAM: TRANSAMINITIS COMPARISON: 02/10/2014 FINDINGS: Limited incomplete exam due to reported patient agitation and request for termination of the exam prior to completion. Liver: Echogenic. 16.3 cm in length. Gallbladder: Not specifically evaluated. Biliary tree: CBD not measured. No definite intrahepatic biliary dilatation on limited images obtained. Pancreas: Partially obscured by shadowing bowel gas, grossly unremarkable as visualized. Right kidney: Not specifically evaluated. Other: No definite free fluid. US/Liver IMPRESSION: 1. Limited incomplete exam due to patient request to terminate prematurely. 2. No definite/visualized acute process identified, noting that the gallbladder , CBD, and RIGHT kidney were not specifically evaluated. If concern persist, recommend CT. 3. Appearance of the hepatic parenchyma most commonly associated with hepatic s teatosis. Correlate for clinical and laboratory evidence of chronic liver disease. Reading Location: [id number]
[2024-11-03 11:43] LABS: Free T3 2.6 pg/mL (2.18-3.98)
[2024-11-03 12:08] LABS: Acetaminophen (Tylenol) Level < 5.0 ug/mL (8.0-19.0); Salicylate < 0.5 mg/dL (2.8-20.0)
[2024-11-03 12:09] LABS: Magnesium 1.4 mg/dL (1.5-2.2)
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
--- NOTE | 2024-11-03 13:49 | CM.ED ---
Social Work SW contacted [facility], confirmed that patient did have a bed available. Referral sent. Elvira Ontiveros, LEGAL OPERATIONS MANAGER, GUN PROFILER
--- NOTE | 2024-11-03 15:04 | CM.ED ---
Social Work was notified that patient was accepted at [facility], patient may be admitted after being restraint free for 4 hours. Admitting physician is Dr. Claros, N2N is [phone] Option 2. Patient will be going to [facility] unit. Elvira Ontiveros, CONCESSION SUPERVISOR, SOFTWARE INSTALLATION ENGINEER
[2024-11-03 15:06] LABS: Bacteria 0 SEEN /hpf (None Seen); Mucous, Urine 0 SEEN /hpf (<or=2+); Red Blood Cells-Urine 0 SEEN /hpf (0-5)
[2024-11-03 15:07] LABS: Color, Urine Yellow (Yellow); Glucose, Dipstick 50 mg/dl (Normal); Ketone-Dipstick 5 mg/dl (Negative); Leukocyte Esterase-Dipstick 25 /ul (Negative); Nitrite-Dipstick Negative (Negative); Occult Blood-Urine Negative /ul (Negative); Protein-Dipstick 15 mg/dl (Negative); Specific Gravity, Urine 1.005 (1.002-1.030); Urine Bilirubin Dipstick Negative (Negative); Urine Clarity Clear (Clear); Urine Urobilinogen Normal (Normal); Urine pH 6.5 (5.0 - 8.0)
[2024-11-03] MEDS: Potassium Chloride Oral Soln 20 MEQ/15 ML UDC 40 MEQ PO (15:08)
[2024-11-03 15:16] LABS: Squamous Epithelial Cells - UA 0-5 SEEN /hpf (5-10)
[2024-11-03 15:17] LABS: White Blood Cells 0-5 SEEN /hpf (0-5)
--- NOTE | 2024-11-03 16:19 | CM.ED ---
Social Work SW notified patient and that she was accepted at [facility]. No concerns or further questions noted. [place] slip was faxed to [facility]. Elvira Ontiveros, TENNIS DESK TEAM MEMBER, TELETYPESETTER MONITOR
[2024-11-03] MEDS: Magnesium Sulfate 2 GM in Dextrose 5%-Water (100mL Bag) 100 ML IV (16:24)
--- NOTE | 2024-11-03 17:34 | ED.RN ---
Report called to [facility].
== END 2024-11-03 18:18 ==
PROVIDERS: Emergency Provider Emergency Medicine; PCP Internal Medicine; Visit Provider Emergency Medicine
DX: F41.9 Anxiety disorder, unspecified (principal); F31.9 Bipolar disorder, unspecified; Z79.4 Long term (current) use of insulin; E11.9 Type 2 diabetes mellitus without complications; R45.1 Restlessness and agitation; E87.6 Hypokalemia; E83.42 Hypomagnesemia; F17.210 Nicotine dependence, cigarettes, uncomplicated; Z79.899 Other long term (current) drug therapy; Z86.73 Personal history of transient ischemic attack (TIA), and cerebral infarction without residual deficits
CPT/HCPCS: 70450; 76705; 80053; 80143; 80179; 80307; 81001; 82077; 82550; 83735; 84439; 84443; 84481; 85025; 93005; 96365; 96366; 96372; 99285; J3486

== ENCOUNTER 2025-01-24 18:49 | Emergency (ER) | payer MEDICARE, SELFPAY ==
[2025-01-24] VITALS (8 sets, daily range): BP systolic 103–124; BP diastolic 63–80; PULSE 78–124; RESP 18–36; TEMP 36.6–37; O2SAT 98–100; BMI 25.0
--- NOTE | 2025-01-24 19:09 | EKG12_ITS ---
Test Reason : DYSRHYTHMIA Blood Pressure : */* mmHG Vent. Rate : 111 BPM Atrial Rate : 111 BPM P-R Int : 158 ms QRS Dur : 74 ms QT Int : 294 ms P-R-T Axes : 37 -24 34 degrees QTcB Int : 399 ms Sinus tachycardia Inferior infarct , age undetermined Abnormal ECG Confirmed by CELI FOFANA, RASHMI ([id number]), image editor CASSANDRA DRUMMOND ([id number]) on 01/25/2025 1:04:19 PM Referred By: Confirmed By: RASHMI ALATORRE MD
[2025-01-24] MEDS: 0.9% Normal Saline (1000mL) 1,000 ML 999 ML IV ×4 (19:43→22:57)
[2025-01-24 19:47] LABS: SITE Not entered; VBG BASE EXCESS -4 mmol/L (-1.0-3.5); VBG PO2 63 mmHg (25-40); VBG SO2 91 % (50-70); VBG TCO2 22 mmol/L (23-33)
[2025-01-24 19:53] LABS: Mucous, Urine 0 SEEN /hpf (<or=2+); Red Blood Cells-Urine 0 SEEN /hpf (0-5)
[2025-01-24 19:57] LABS: Hematocrit 43.7 % (37-47); Hemoglobin 14.9 g/dL (12.0-15.0); Immature Granulocytes Count 0.050 X10^3/uL (0.0-0.0); Mean Corp Hgb Conc 34.1 g/dL (32-36); Mean Corpuscular Volume 92.4 fL (81-99); Mean Platelet Vol. 12.1 fl (6.2-12.0); NRBC Flagged by Analyzer 0 % (0-5); Platelet Count 166 K/mm3 (150-450); RBC Distribution Width CV 12.6 % (11.6-14.6); RBC Distribution Width SD 42.9 fl (35.1-43.9); Red Blood Count 4.73 M/mm3 (4.2-5.4); White Blood Count 13.3 K/mm3 (4.4-11.0)
[2025-01-24 20:09] LABS: Color, Urine Yellow (Yellow); Glucose, Dipstick 1000 mg/dl (Normal); Ketone-Dipstick 5 mg/dl (Negative); Leukocyte Esterase-Dipstick Negative /ul (Negative); Nitrite-Dipstick Positive (Negative); Occult Blood-Urine Negative /ul (Negative); Protein-Dipstick Negative (Negative); Specific Gravity, Urine 1.010 (1.002-1.030); Urine Bilirubin Dipstick Negative (Negative)
[2025-01-24 20:12] LABS: Prothrombin Time (Protime)PT. 12.6 SECONDS (11.7-14.9)
[2025-01-24 20:13] LABS: Partial Thromboplast Time 21.5 Seconds (24.1-36.2)
[2025-01-24 20:18] LABS: Internal QC Validated? YES +Cl - CLEAR BKGD
[2025-01-24 20:19] LABS: Pregnancy, Serum, hCG Quali. NEGATIVE Negative; Record Kit Lot#, Serum Preg. 962302
[2025-01-24 20:20] LABS: Squamous Epithelial Cells - UA 0-5 SEEN /hpf (5-10)
[2025-01-24 20:25] LABS: BETA-HYDROXYBUTYRATE 0.1 mmol/L (0.0-0.3)
[2025-01-24 20:28] LABS: AST(SGOT) 19 U/L (<=31); Alanine Aminotransfer ALT/SGPT 14 U/L (<=34); Albumin, Serum 4.1 g/dL (3.5-5.0); Alkaline Phosphatase 87 U/L (35-104); Anion Gap 21 (5-15); BUN 12 mg/dL (4-19); BUN/Creat Ratio 14.6 RATIO (10-20); Calcium,Total 8.4 mg/dL (7.6-11.0); Carbon Dioxide 15.5 mmol/L (21.0-32.0); Chloride 96 mmol/L (98-108); Estimated Creatinine Clearance 79.07 ml/min (50-250); Globulin 2.5 g/dL (2.2-4.2); Glucose 472 mg/dL (70-99); Potassium 4.3 mmol/L (3.3-5.1)
--- NOTE | 2025-01-24 20:28 | CT_ITS ---
PROCEDURE: ABDOMEN/PELVIS W IV CONT ONLY 01/24/2025 REASON FOR EXAM: ABD PAIN TECHNIQUE: ABDOMEN/PELVIS W IV CONT ONLY. Coronal and Sagittal reconstruction series were provided. CONTRAST: Isovue 370 VOLUME: 96 mL One or more dose reduction techniques were used (e.g., Automated exposure control, adjustment of the mA and/or kV according to patient size, use of iterative reconstruction technique. RADIATION DOSE SUMMARY: DLP: 787.19 mGycm COMPARISON: Abdominal CT 02/11/2024 FINDINGS: Lung bases: Clear, with mild scattered dependent atelectasis. Liver: Diffuse hepatic steatosis. No suspicious focal lesion. Gallbladder: Surgically absent. No biliary ductal dilatation. Spleen: Normal size and morphology. Pancreas: Unremarkable. Adrenals: Unremarkable. Kidneys: Normal, symmetric enhancement. No urolithiasis or hydroureteronephrosis. Bladder: Unremarkable. Reproductive Organs: Prior hysterectomy. Unremarkable adnexal regions. Bowel: Unremarkable stomach and bowel. No evidence of obstruction or active inflammatory process. Appendix is surgically absent. No colonic wall thickening. Lymph nodes: No enlarged abdominopelvic lymph nodes. Vasculature: Abdominal aorta is normal in course and caliber. Scant atherosclerotic calcifications. Peritoneum / Retroperitoneum: No ascites or free air. Bones: No significant abnormality. CT/Abdomen/Pelvis W IV Cont ONLY IMPRESSION: No acute or active inflammatory intra-abdominal pathology. Diffuse hepatic steatosis. Reading Location: [id number]
[2025-01-24 21:50] LABS: Anion Gap 15 (5-15); BUN 10 mg/dL (4-19); BUN/Creat Ratio 15.0 RATIO (10-20); Calcium,Total 8.1 mg/dL (7.6-11.0); Carbon Dioxide 19.4 mmol/L (21.0-32.0); Chloride 100 mmol/L (98-108); Estimated Creatinine Clearance 96.52 ml/min (50-250); Glucose 311 mg/dL (70-99); Potassium 4.1 mmol/L (3.3-5.1)
--- NOTE | 2025-01-24 23:22 | EDS_ITS ---
HPI History of Present Illness Chief Complaint: Hyperglycemia Narrative Narrative: Patient is a 54-year-old female with past medical history of diabetes, anxiety, depression, seizures, anxiety, depression, bipolar disorder who presented to the emergency department with a chief complaint of high glucose, nausea vomiting diarrhea. Patient states that for the last several days she has had vomiting and diarrhea and has been extremely nauseous. States that she has had some lower abdominal pain associated with this. Patient denies any other sick contacts. Patient notes that her glucometer has been reading high at home. She states that she has not been able to eat or drink anything at home. [facility] Medical History Bipolar disorder Depression Anxiety Chronic pain Smoker Seizures Tobacco use IDDM (insulin dependent diabetes mellitus) Anxiety and depression Diabetes Lupus Asthma Migraines Home Medications ?Medication ?Instructions ?Recorded ?Last Taken ?Type insulin aspar prot-insulin aspart 20 unit subcut TID 0 01/18/22 Unknown History 100 unit/mL (70-30) subcutaneous pen (Novolog Mix 70-30FlexPen U-100) pregabalin 50 mg capsule (Lyrica) 50 mg PO TID 2 Unknown History quetiapine 50 mg tablet (Seroquel) 50 mg PO QHS Unknown History amitriptyline 25 mg tablet 50 mg PO QHS 03/05/23 Unkno wn History tramadol 50 mg tablet 50 mg PO Q8H lynphoma,lupus 03/06/23 03/05/23 06:00 History atorvastatin 40 mg tablet 40 mg PO QHS 90 days #90 tab s 03/07/23 Unknown Rx gabapentin 300 mg capsule 300 mg PO Q8H 04/26/23 Unkno wn History insulin glargine 100 unit/mL (3 15 unit subcut QHS Unknown History mL) subcutaneous pen (Lantus Solostar U-100 Insulin) ondansetron 4 mg disintegrating 4 mg PO Q8H PRN PRN Na usea #10 tabs 02/11/24 Unknown Rx tablet oxycodone 5 mg tablet 5 mg PO Q6H PRN pain 3 days #12 02/11/24 Unknown Rx tabs oxycodone 5 mg tablet 5 mg PO Q6H PRN pain 3 days #12 02/26/24 Unknown Rx tabs trazodone 100 mg tablet 100 mg PO QHS PRN PRN insomn ia 02/26/24 Unknown History ondansetron 4 mg disintegrating 4 mg PO Q6H PRN nausea and 01/24/25 Unknown Rx tablet vomiting #20 tabs Allergy/AdvReac Type Severity Reaction Status Date / Time coconut oil Allergy Rash Verified 01/24/25 18:53 venom-honey bee Allergy Unknown Verified 01/24/25 18:53 Family History Aunt Breast cancer Cancer vulvar cancer Grandmother Cancer vulvar Father CVA (cerebral vascular accident) Hypertension Other Heart disease Surgical History History of lumpectomy History of appendectomy Hx of tonsillectomy H/O: hysterectomy Hx of cholecystectomy Social History household members: spouse Smoking Status: Current every day smoker tobacco type: cigarettes alcohol intake: current details: social substance use type: marijuana caffeine: Yes what type of physical activity do you participate in: none seatbelt use: always do you feel safe at home: Yes 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 [facility] ROS ROS ED ROS Narrative Constitutional: Complains of chills denies any fevers, headaches Eyes: Denies double vision Cardiovascular: Denies chest pain Respiratory: Denies shortness of breath Abdomen: Complains of lower abdominal pain nausea vomiting diarrhea as noted above : Denies any urinary symptoms Neurological: Denies any numbness, wheeze, tingling Musculoskeletal: Denies back pain Skin: Denies any rashes or lesions EXAM Physical Exam Narrative Exam Narrative: General: Patient was lying in bed rest comfortably did not appear to be acute distress Head: Atraumatic, normocephalic Eyes: PERRL bilaterally, EOMI bilateral, no conjunctival injection noted Neck: Soft, supple, trachea midline Cardiovascular: Patient tachycardic with a regular rhythm Respiratory: Auscultation bilaterally Abdomen: Soft, nondistended, tenderness to palpation in the lower quadrants no rebound or guarding on exam Extremities: +5/5 strength noted in the bilateral upper and lower extremities Neurological: Patient follow commands knew that she was at [facility] the year is 2024 Skin: Warm, dry, intact no rashes or lesions noted Const Vital Signs: 01/24/25 18:50 01/24/25 19:07 01/24/25 19:09 Temperature 98.6 F 98.6 F Temperature Source Oral Oral Pulse Rate 124 H 113 H Respiratory Rate 18 36 H Respiratory Effort Normal Non-Labored Respiratory Pattern Normal Blood Pressure 116/76 109/66 Blood Pressure Mean 89 80 Pulse Ox 99 98 Oxygen Delivery Method Room Air Room Air 01/24/25 19:36 01/24/25 20:00 01/24/25 21:00 Temperature 98 F 98.3 F Temperature Source Oral Oral Pulse Rate 110 H 100 Respiratory Rate 30 H 32 H Respiratory Effort Respiratory Pattern Blood Pressure 105/80 103/80 Blood Pressure Mean 88 87 Pulse Ox 100 99 99 Oxygen Delivery Method Room Air Room Air Room Air 01/24/25 22:00 01/24/25 23:00 Temperature 98.6 F 98 F Temperature Source Oral Oral Pulse Rate 94 78 Respiratory Rate 23 H 18 Respiratory Effort Respiratory Pattern Blood Pressure 124/72 H 112/63 Blood Pressure Mean 89 79 Pulse Ox 99 98 Oxygen Delivery Method Room Air Room Air MDM MDM MDM Narrative Medical decision making narrative: Patient is a 54-year-old female who presented to the emergency department chief complaint of hyperglycemia, nausea vomit diarrhea. On the differential diagnose includes but limited to DKA, hyperglycemia, HHS, viral gastroenteritis. Once workup is obtained reviewed she will be reevaluated. Patient be given 30 cc/kg bolus of IV fluids which was ordered at 1910. I ordered her 15 units subcutaneous insulin. When nursing staff went to give the insulin they rechecked her sugar and noted that it was 274 therefore we held off. Patient states that normally she would not take anything for this glucose as her sugars normally run between 240s and 300s. Patient CBC was reviewed and showed a white blood count of 13.3, hemoglobin 14.9, plate count 166. Patient INR normal at 0.9, PT of 12.6. Patient's venous gas reviewed showed a pH 7.38 which is in the normal range. Patient sodium is 133, potassium 4.3, anion gap at 21 with a carbon dioxide of 15.5. Patient's glucose was noted be 472 lactic acid of 7.2. Patient AST and ALT were 19 and 14 respectively. Patient's beta-hydroxybutyrate normal at 0.1 this was negative urinalysis reviewed and showed positive nitrites negative leukocyte esterase 0-5 white cells with 2+ bacteria this will be sent for culture she does not have any urinary symptoms we will hold off on treatment. Given the patient's glucose had corrected quickly with just IV fluids we proceeded to continue to hydrate the patient and we will repeat a BMP. Patient's BMP was repeated as well as lactic acid and her anion gap normalized to 15 carbon dioxide was slightly low at 19.4 she is still getting IV fluids for hydration. Patient's lactic acid is trending down to 4.2. Patient CT abdomen pelvis IV contrast reviewed and showed no acute or active inflammatory intra-ab dominal pathology diffuse hepatic steatosis. Patient tolerated oral challenge here in the emergency department. On reevaluation the patient at 11:20 PM she is feeling significantly improved and wants to go home at this point in time. Her glucose is down to 170. Patient was advised to continue to orally with plenty of water Zofran will be sent to the pharmacy for nausea control. She was advised to return with worsening symptoms or any concerns. Otherwise she is to follow-up with her doctor in outpatient setting. She is agreeable this plan as well as significant other at bedside all question concerns answered she was discharged home in stable condition. Lab Data Labs: Laboratory Results - last 24 hr 01/24/25 01/24/25 01/24/25 19:04 19:30 19:34 WBC 13.3 H RBC 4.73 Hgb 14.9 Hct 43.7 MCV 92.4 MCH 31.5 MCHC 34.1 RDW Std Deviation 42.9 RDW Coeff of Marc 12.6 Plt Count 166 MPV 12.1 H Immature Gran % (Auto) 0.400 Neut % (Auto) 80.3 H Lymph % (Auto) 8.7 L [place] % (Auto) 9.2 Eos % (Auto) 1.1 Baso % (Auto) 0.3 Absolute Neuts (auto) 10.7 H Absolute Lymphs (auto) 1.16 Nucleated RBC % 0 PT 12.6 INR 0.9 APTT 21.5 L Sodium 133 Potassium 4.3 Chloride 96 L Carbon Dioxide 15.5 L Anion Gap 21 H BUN 12 Creatinine 0.83 Estim Creat Clear Calc 79.07 Est GFR (MDRD) Non-Af 84 BUN/Creatinine Ratio 14.6 Glucose 472 H* Lactic Acid 7.2 H* Calcium 8.4 Total Bilirubin 0.44 AST 19 ALT 14 Alkaline Phosphatase 87 Total Protein 6.6 Albumin 4.1 Globulin 2.5 Albumin/Globulin Ratio 1.6 b-Hydroxybutyric mmol/L 0.1 Serum , Qual NEGATIVE Urine Color Yellow Urine Clarity Sl. Cloudy Urine pH 6.0 Ur Specific [place] 1.010 Urine Protein Negative Urine Glucose (UA) 1000 H Urine Ketones 5 H Urine Occult Blood Negative Urine Nitrite Positive H Urine Bilirubin Negative Urine Urobilinogen Normal Ur Leukocyte Esterase Negative Urine RBC 0 SEEN Urine WBC 0-5 SEEN Ur Squamous Epith Cells 0-5 SEEN Urine Bacteria 2+ Urine Mucus 0 SEEN POC Glucose 467 H* 01/24/25 21:21 WBC RBC Hgb Hct MCV MCH MCHC RDW Std Deviation RDW Coeff of Marc Plt Count MPV Immature Gran % (Auto) Neut % (Auto) Lymph % (Auto) [place] % (Auto) Eos % (Auto) Baso % (Auto) Absolute Neuts (auto) Absolute Lymphs (auto) Nucleated RBC % PT INR APTT Sodium 134 Potassium 4.1 Chloride 100 Carbon Dioxide 19.4 L Anion Gap 15 BUN 10 Creatinine 0.68 L Estim Creat Clear Calc 96.52 Est GFR (MDRD) Non-Af 104 BUN/Creatinine Ratio 15.0 Glucose 311 H Lactic Acid 4.2 H* Calcium 8.1 Total Bilirubin AST ALT Alkaline Phosphatase Total Protein Albumin Globulin Albumin/Globulin Ratio b-Hydroxybutyric mmol/L Serum , Qual Urine Color Urine Clarity Urine pH Ur Specific [place] Urine Protein Urine Glucose (UA) Urine Ketones Urine Occult Blood Urine Nitrite Urine Bilirubin Urine Urobilinogen Ur Leukocyte Esterase Urine RBC Urine WBC Ur Squamous Epith Cells Urine Bacteria Urine Mucus POC Glucose ABG Data ABG results: ABG 01/24/25 19:44 Specimen Type TREMAYNE Sample Site Not entered VBG pH 7.38 VBG pO2 63 H VBG HCO3 21 L VBG Total CO2 22 L VBG O2 Sat (Calc) 91 H VBG Base Excess -4 L POC Mix VBG pCO2 Pt Tmp 36.3 L O2 Delivery Device Room Air Radiography Diagnostic Testing: Clinical Impression(s) from Imaging Studies Abdomen/Pelvis CT 01/24/25 20:28 IMPRESSION: No acute or active inflammatory intra-abdominal pathology. Diffuse hepatic steatosis. Reading Location: [id number] Discharge Plan Triage Chief Complaint: Hyperglycemia Other Complaint: Nausea/Vomiting/Diarrhea ED Provider: Jason Bagley Dx/Rx/DC Orders Clinical Impression: Hyperglycemia, History of stroke, History of diabetes mellitus Prescriptions: New ondansetron 4 mg tablet,disintegrating 4 mg PO Q6H PRN (Reason: nausea and vomiting) Qty: 20 0RF No Action pregabalin [Lyrica] 50 mg Capsule 50 mg PO TID quetiapine [Seroquel] 50 mg Tablet 50 mg PO QHS insulin asp prt-insulin aspart [Novolog Mix 70-30FlexPen U-100] 100 unit/mL (70-30) Insulin Pen 20 unit SUBCUT TID amitriptyline 25 mg tablet 50 mg PO QHS tramadol 50 mg tablet 50 mg PO Q8H atorvastatin 40 mg tablet 40 mg PO QHS 90 Days Qty: 90 0RF gabapentin 300 mg capsule 300 mg PO Q8H Patient Comments: TAKE 1 CAPSULE BY MOUTH THREE TIMES DAILY insulin glargine [Lantus Solostar U-100 Insulin] 100 unit/mL (3 mL) insulin pen 15 unit SUBCUT QHS Patient Comments: INJECT 15 UNITS UNDER THE SKIN ONCE DAILY AT BEDTIME. oxycodone 5 mg tablet 5 mg PO Q6H PRN (Reason: pain) 3 Days Qty: 12 0RF ondansetron 4 mg tablet,disintegrating 4 mg PO Q8H PRN PRN (Reason: Nausea) Qty: 10 0RF trazodone 100 mg tablet 100 mg PO QHS PRN PRN (Reason: insomnia) oxycodone 5 mg tablet 5 mg PO Q6H PRN (Reason: pain) 3 Days Qty: 12 0RF Primary Care Provider: Kristina Mcclure Referrals: Kristina Mcclure, [Primary Care Provider] - Activity Restrictions/Additional Instructions: Ensure you drink plenty of water at home when you get home tonight. Use Zofran as prescribed for nausea. Take insulin as prescribed. Return for worsening symptoms or any concerns Print Language: Kazakh Disposition Disposition: Home, Self Care
[2025-01-24 23:42] LABS: Reflex Lactate? Y
[2025-01-25 01:25] LABS: Reflex Lactate? Y
== END 2025-01-24 23:38 | disposition home or self-care (01) ==
PROVIDERS: Emergency Provider Emergency Medicine; PCP Internal Medicine; Visit Provider Emergency Medicine
DX: E11.65 Type 2 diabetes mellitus with hyperglycemia (principal); F31.9 Bipolar disorder, unspecified; Z79.4 Long term (current) use of insulin; Z90.710 Acquired absence of both cervix and uterus; Z86.73 Personal history of transient ischemic attack (TIA), and cerebral infarction without residual deficits; F17.210 Nicotine dependence, cigarettes, uncomplicated; Z79.899 Other long term (current) drug therapy; Z90.49 Acquired absence of other specified parts of digestive tract
CPT/HCPCS: 74177; 80048; 80053; 81001; 82010; 82803; 82962; 83605; 84703; 85025; 85610; 85730; 87040; 87077; 87086; 87088; 87186; 93005; 99284; Q9967; A4216